=== PATIENT | female | born 1985 | race Caucasian/White ===

== ENCOUNTER 2022-11-02 20:06 | Emergency (ER) | payer BC, MEDICAID, SELFPAY ==
--- NOTE | ~2022-11-02 | CT_ITS ---
EXAMINATION: CT HEAD WITHOUT CONTRAST CLINICAL INFORMATION: Brain mass. Dysarthria. COMPARISON: No relevant prior imaging. TECHNIQUE: Contiguous axial imaging was performed from the skull base to vertex without intravenous administration of contrast. This CT examination was performed using dose optimization techniques as appropriate, variously including the following: *Automated exposure control *Adjustment of mA and/or kV according to patient size (this includes techniques or standardized protocols for targeted exams where dose is matched to indication/reason for exam; i.e. extremities or head) *Use of iterative reconstruction technique DLP: 687 mGy-cm FINDINGS: There are chronic postoperative changes of a partial right temporal lobectomy and there is asymmetric ex vacuo enlargement of the right temporal horn. No intracranial mass effect or midline shift. No hydrocephalus. Vences-white matter differentiation is grossly preserved and there is no evidence of acute territorial infarct. The skull base is intact. No mastoid or middle ear effusion. No active paranasal sinus disease. CT/CT head/brain wo IV con IMPRESSION: There are chronic postoperative changes of a partial right temporal lobectomy. Otherwise unremarkable examination. No evidence of acute territorial infarct or hemorrhage.
[2022-11-02 20:13] VITALS: BP 88/52; BP 98/60; PULSE 66; PULSE 67; RESP 18; TEMP 36.6; O2SAT 98; O2SAT 99; BMI 28.4
--- NOTE | 2022-11-02 21:10 | PC.NURSE ---
Assumed care of pt. On arrival, pt assessed by and this RN. pt found to have contracted R arm, pt sts due to pain in shoulder, wworse on palpation. Pt also found to have speech deficits with slurring and some abbreviated sentence structures. both of the latter appear to be intermittent during exam, with pt completing some sentences with clear speech, then having moderate mufled/slurred speech and short sentence structure with others. pt taken to CT for dry scan immediately after assessment, then brought to room. This RN made one attempt to start IV, pt jerked arm away and IV not successful. At that time, pt refused IV, labwork and any fuirther exams. MD made aware of pt request. pt speech notably improving, and pt moving R arm freely with no distress at that time. Per MD, pt spouse contacted to come to ER to discuss situation.
--- NOTE | 2022-11-02 21:13 | ED_ITS ---
HPI - Neuro Symptoms/Deficit General Chief Complaint: Neuro Symptoms/Deficit Stated Complaint: slurred speech, r side weakness, per ems Time Seen by Provider: 11/02/22 20:11 Source: patient Mode of arrival: ambulatory Limitations: no limitations History of Present Illness HPI Narrative: Patient's history of brain tumor status post surgery and radiation treatment in 2019 localized to the right frontal area with history of anxiety and frequent slurred speech in the past with workup negative today patient was under stress is increased work load was working outside came inside the home and had difficulty speaking stuttering her words without any aphasia no other weakness patient was ambulatory Related Data Allergies Allergy/AdvReac Type Severity Reaction Status Date / Time No Known Allergies Allergy Verified 11/02/22 20:11 [facility] Social History Social History Alcohol intake: current Alcohol intake frequency: holidays/special occasions only Smoked in Last 30 Days: Yes Use of substances other than those prescribed or required for medical reasons: Yes Advance Directives: No Advance Directives Information Provided: No Patient : No Physical Exam Vital Signs: Vital Signs: Last Vital Signs Temp 97.8 F 11/02/22 20:13 Pulse 67 11/02/22 20:13 Resp 18 11/02/22 20:13 BP 96/57 L 11/02/22 22:13 Pulse Ox 98 11/02/22 20:13 O2 Del Method Room Air 11/02/22 20:13 BMI result Body Mass Index 28.4 Medical Decision Making Lab Data Labs: Lab Results 11/02/22 Range/Units 21:14 POC Glucose 97 (60-115) mg/dL Discharge Plan Discharge Clinical Impression: Anxiety disorder Patient Disposition: Home, Self-Care Instructions: Anxiety (ED) Additional Instructions: We could not find any stroke at this time your symptoms likely from str ess/anxiety Follow-up with your PCP Drink plenty of fluids
--- NOTE | 2022-11-02 21:15 | PC.NURSE ---
pt provided PO water following passed swallow eval.
[2022-11-02 21:18] LABS: Glucose, Whole Blood 97 mg/dL (60-115)
[2022-11-02 22:13] VITALS: BP 96/57
--- NOTE | 2022-11-02 22:16 | PC.NURSE ---
After PO water, pt demonstrating improving blood pressures. made aware.
== END 2022-11-02 22:31 | disposition home or self-care (01) ==
PROVIDERS: Emergency Provider Internal Medicine; PCP Radiology Diagnostic Radiology
DX: F41.9 Anxiety disorder, unspecified (principal); C71.9 Malignant neoplasm of brain, unspecified; Z92.3 Personal history of irradiation
CPT/HCPCS: 70450; 82947; 99284

== ENCOUNTER 2022-11-30 09:49 | Emergency (ER) | payer BC, MEDICARE, MEDICAID, SELFPAY ==
[2022-11-30] VITALS (7 sets, daily range): BP systolic 85–109; BP diastolic 44–73; PULSE 61–72; RESP 17–21; TEMP 36.1; O2SAT 98–100; BMI 30.5
--- NOTE | ~2022-11-30 | XR_ITS ---
EXAMINATION: XR CHEST CLINICAL INFORMATION: Chest pain. COMPARISON: None available. TECHNIQUE: Frontal view of the chest was obtained. FINDINGS: No significant abnormality is noted involving the heart, lungs, mediastinum, bony thorax or soft tissues. XR/XR chest 1V IMPRESSION: No acute cardiopulmonary process.
--- NOTE | 2022-11-30 10:32 | ECG_ITS ---
Test Reason : CP Blood Pressure : / mmHG Vent. Rate : 067 BPM Atrial Rate : 067 BPM P-R Int : 200 ms QRS Dur : 078 ms QT Int : 448 ms P-R-T Axes : 072 087 080 degrees QTc Int : 473 ms Normal sinus rhythm Nonspecific T wave abnormality Abnormal ECG No previous ECGs available Referred By: Janiya Farrell Electronically Signed By:DEBBI APONTE
--- NOTE | 2022-11-30 10:38 | ED.CHESTPAIN ---
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 EMS found her with BP low 70s/80s but recovered quickly with fluids. She denies symptoms now and speech is normal. She has not been drinking much but denies travel, OCP use, prior hx of CAD, dissection, VTE. no fam hx of early CAD. she had repair of PDA as infant. MD complaint: chest pain Pertinent past history: other (syncope) Onset (ago): minute(s) (just ACCESS LIAISON) Timing of current episode: now resolved Prior episodes: Yes Onset: during rest Pain location: left chest Pain radiation: left arm Severity: moderate Quality: sharp Relieving factors: nothing Exacerbating factors: stress Context: other (hx of similar in the past. ) Associated symptoms: other (dizziness, felt she had some slurred speech (hx of same in the past)) Treatment prior to arrival: none Related Data Allergies Allergy/AdvReac Type Severity Reaction Status Date / Time No Known Allergies Allergy Verified 11/02/22 20:11 Review of Systems Review of Systems: Constitutional : No Weight loss, No Fever, No Chills ENT/Mouth : No sore throat, No Rhinorrhea Eyes: No Eye Pain, No Swelling Cardiovascular : pos Chest Pain, no SOB, no Dyspnea on Exertion, No Orthopnea, No Edema, No Palpitations Respiratory : No Cough, No Sputum Gastrointestinal : pos Nausea, No Vomiting, No Diarrhea, No abdominal Pain, No Hematochezia, No Melena Genitourinary : No Dysuria, No Urinary Frequency Musculoskeletal : No joint pain, No Myalgias, No Joint Swelling Skin : No Skin Lesions, No rash Neuro : No Weakness, No Numbness, No Dizziness, No Headache Psych : No Anxiety/Panic, No Depression Heme/Lymph: No Bruising, No Lymphadenopathy Endocrine : No Polyuria, No Polydipsia All other systems reviewed and are negative [facility] Past Medical History Attestation statement: The following information was validated with the patient. Source: old records reviewed and obtained from family Medical History Anxiety Astrocytoma Syncope Social History Social History (Updated 11/30/22 @ 10:47 by Janiya Farrell DO) Alcohol intake: current Alcohol intake frequency: holidays/special occasions only Patient Tobacco Use Status: Current someday Tobacco user Advance Directives: No Advance Directives Information Provided: No Physical Exam Vital Signs: Vital Signs: Last Vital Signs Temp 97 F 11/30/22 09:58 Pulse 61 11/30/22 14:18 Resp 21 H 11/30/22 14:18 BP 93/63 11/30/22 14:18 Pulse Ox 100 11/30/22 14:18 O2 Del Method Room Air 11/30/22 14:18 BMI result Body Mass Index 30.5 Appearance: Alert. Oriented X3. No acute distress. Eyes: Pupils equal, round and reactive to light. ENT: Pharynx normal. Neck: Normal inspection. Neck supple. CVS: Normal heart rate and rhythm. Pulses normal. Respiratory: No respiratory distress. Breath sounds normal. Abdomen: Soft and nontender. Skin: Skin warm and dry. Normal skin color. Normal skin turgor. Extremities: No lower extremity edema. No calf ttp 2+ radial pulses bilaterally Neuro: Oriented X 3. No motor deficit. No sensory deficit. Course Course Course Narrative: BP didn't really drop with orthostatics and she is feeling better - baseline BP is low in 90s to begin with per patient trop flat x 2 and ddimer negative asymptomatic at this time stable for DC Medications Administered Discontinued Medications Generic Name Dose Route Start Last Admin Trade Name Freq PRN Reason Stop Dose Admin Sodium Chloride 500 mls @ 500 mls/hr 11/30/22 10:45 11/30/22 10:49 Ns IV 11/30/22 11:44 500 mls/hr .Q1H OMID Administration Lactated Ringer's 1,000 mls @ 999 mls/hr 11/30/22 13:30 11/30/22 13:48 Lr IV 11/30/22 14:30 999 mls/hr .Q1H1M OMID Administration Medical Decision Making Medical Decision Making MDM Narrative: 37 yo female with 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 BP has resolved and no infectious symptoms reported doubt infection at this time - likely vasovagal or near syncope has hx of low BP in the past. Labs, troponin x 2, ddimer , EKG and CXR with 500cc bolus ordered. Differential Diagnosis Differential Diagnoses: The differential diagnosis associated with the presentation includes chest pain atypical, FTT, near syncope, anemia, dehydration, vasovagal, VTE, doubt dissection - no hx of this in the past and no fam hx distal pulses symmetric and intact Admission/Observation Consideration of admission/observation: Escalation of care including admission/observation considered VS improved - negative orthostatics, ddimer negative, trop flat x 2, feels fine stable for DC Lab Data [facility] Lab Attestation statement: I reviewed the patient's lab results. 11/30/22 11:54 11/30/22 11:54 Labs: Lab Results 11/30/22 11/30/22 11/30/22 Range/Units 11:54 11:54 11:54 WBC 3.8 L (4.8-10.8) X10*3/uL RBC 4.48 (4.20-5.50) X10*6/uL Hgb 12.0 (12.0-16.0) g/dl Hct 34.7 L (37.0-47.0) % MCV 77.5 L (80.0-98.0) fL MCH 26.8 L (27.0-33.0) pg MCHC 34.6 (31.0-35.0) g/dl RDW 13.6 (11.0-16.0) % Plt Count 167 (160-400) X10*3/uL MPV 10.1 (9.4-12.3) fL Immature Gran % (Auto) 0.3 (0.0-0.4) % Neut % (Auto) 42.8 L (45-73) % Lymph % (Auto) 42.8 H (20-40) % Gulf % (Auto) 6.1 (2-11) % Eos % (Auto) 6.4 H (0-4) % Baso % (Auto) 1.6 (0-2) % Lymph # (Auto) 1.6 (1.2-4.9) X10*3/uL [place] # (Auto) 0.2 (0.1-1.2) X10*3/uL Eos # (Auto) 0.2 (0.0-0.4) X10*3/uL Baso # (Auto) 0.1 (0.0-0.2) X10*3/uL Abs Immat Gran (auto) 0.01 (0.00-0.03) X10*3/uL Absolute Neuts (auto) 1.6 L (2.0-8.3) x10*3/uL Absolute Nucleated RBC 0.000 (0.0-0.012) X10*3/uL Nucleated RBC % (auto) 0.0 (0.0-0.2) /100WBC D-Dimer High Sensitivty < 150 NG/ML Sodium 137 (135-145) mmol/L Potassium 4.5 (3.3-5.1) mmol/L Chloride 106 (96-108) mmol/L Carbon Dioxide 26 (22-29) mmol/L Anion Gap 10 L (12-20) BUN 10 (9-16) mg/dL Creatinine 0.76 (0.5-1.4) mg/dL Estim Creat Clear Calc 98.3 Estimated GFR > 60 Random Glucose 85 (60-115) mg/dL Calcium 9.4 (8.4-10.2) mg/dL Magnesium 1.9 (1.6-2.6) mg/dL Total Bilirubin 0.4 (0.0-1.0) mg/dL Direct Bilirubin 0.1 (0.0-0.5) mg/dL AST 19 (5-31) U/L ALT 9 (0-31) U/L Alkaline Phosphatase 76 (39-117) U/L Troponin I High Sens (<3.5-17.0) ng/L Total Protein 6.4 L (6.5-8.0) g/dL Albumin 3.7 (3.5-5.0) g/dL COVID-19 (MATT) (Negative) COVID-19 Clin Com 11/30/22 11/30/22 11/30/22 Range/Units 11:54 11:54 14:17 WBC (4.8-10.8) X10*3/uL RBC (4.20-5.50) X10*6/uL Hgb (12.0-16.0) g/dl Hct (37.0-47.0) % MCV (80.0-98.0) fL MCH (27.0-33.0) pg MCHC (31.0-35.0) g/dl RDW (11.0-16.0) % Plt Count (160-400) X10*3/uL MPV (9.4-12.3) fL Immature Gran % (Auto) (0.0-0.4) % Neut % (Auto) (45-73) % Lymph % (Auto) (20-40) % Gulf % (Auto) (2-11) % Eos % (Auto) (0-4) % Baso % (Auto) (0-2) % Lymph # (Auto) (1.2-4.9) X10*3/uL Gulf # (Auto) (0.1-1.2) X10*3/uL Eos # (Auto) (0.0-0.4) X10*3/uL Baso # (Auto) (0.0-0.2) X10*3/uL Abs Immat Gran (auto) (0.00-0.03) X10*3/uL Absolute Neuts (auto) (2.0-8.3) x10*3/uL Absolute Nucleated RBC (0.0-0.012) X10*3/uL Nucleated RBC % (auto) (0.0-0.2) /100WBC D-Dimer High Sensitivty NG/ML Sodium (135-145) mmol/L Potassium (3.3-5.1) mmol/L Chloride (96-108) mmol/L Carbon Dioxide (22-29) mmol/L Anion Gap (12-20) BUN (9-16) mg/dL Creatinine (0.5-1.4) mg/dL Estim Creat Clear Calc Estimated GFR Random Glucose (60-115) mg/dL Calcium (8.4-10.2) mg/dL Magnesium (1.6-2.6) mg/dL Total Bilirubin (0.0-1.0) mg/dL Direct Bilirubin (0.0-0.5) mg/dL AST (5-31) U/L ALT (0-31) U/L Alkaline Phosphatase (39-117) U/L Troponin I High Sens 5.1 < 2.7 (<3.5-17.0) ng/L Total Protein (6.5-8.0) g/dL Albumin (3.5-5.0) g/dL COVID-19 (MATT) Negative (Negative) COVID-19 Clin Com See Note Independent Interpretation I performed an independent interpretation of an: EKG and Plain X-Ray Interpretation: Rate:67 Rhythm: NSR [place]: normal Normal P waves. Normal CARLOS A. Normal QRS complex. ST T wave : inverted t waves V1-V2, no FERNANDO, artifact noted qTC: normal prior studies: no priors. The study has been interpreted contemporaneously by me. . Radiology Impression Discussion of test interpretation with radiology: I have reviewed the radiologist's reading. Independent Historian Clinical information obtained from an independent historian. History obtained from or confirmed by: Parent External Record Review External record reviewed: Inpatient record Discharge Plan Discharge Clinical Impression: Atypical chest pain Patient Disposition: Home, Self-Care Instructions: Chest Pain (ED) Additional Instructions: blood clot test negative at this time, heart test negative x 2, EKG and chest xray no acute ischemia. your blood pressure did not drop significantly while standing. you were given 2 bags of IVF fluids. return for worsening pain, shortness of breath, headaches, dizziness or any other concerns. take it easy today, rest and stay hydrated drink half a bottle of gatorade mixed with water talk to your doctor this week about your visit.
[2022-11-30] MEDS: 0.9 % Sodium Chloride 500 ML IV (10:49)
[2022-11-30 11:59] LABS: MANUAL DIFF FLAG NO
[2022-11-30 12:02] LABS: Basophils Absolute Auto 0.1 X10*3/uL (0.0-0.2); Basophils Percent Auto 1.6 % (0-2); Eosinophils Absolute Auto 0.2 X10*3/uL (0.0-0.4); Eosinophils Percent Auto 6.4 % (0-4); Hematocrit 34.7 % (37.0-47.0); Imm Gran Abs Auto 0.01 X10*3/uL (0.00-0.03); Imm Gran Pct Auto 0.3 % (0.0-0.4); Lymphocytes Absolute Auto 1.6 X10*3/uL (1.2-4.9); Lymphocytes Percent Auto 42.8 % (20-40); Mean Corpuscular HGB Conc 34.6 g/dl (31.0-35.0); Mean Corpuscular Hemoglobin 26.8 pg (27.0-33.0); Mean Corpuscular Volume 77.5 fL (80.0-98.0); Mean Platelet Volume 10.1 fL (9.4-12.3); Monocytes Absolute Auto 0.2 X10*3/uL (0.1-1.2); Monocytes Percent Auto 6.1 % (2-11); Neutrophils Absolute Auto 1.6 x10*3/uL (2.0-8.3); Neutrophils Percent Auto 42.8 % (45-73); Platelet Count 167 X10*3/uL (160-400); Red Blood Count 4.48 X10*6/uL (4.20-5.50); Red Cell Distribution Width 13.6 % (11.0-16.0); White Blood Count 3.8 X10*3/uL (4.8-10.8)
[2022-11-30 12:10] LABS: D Dimer High Sensitivity < 150 NG/ML
[2022-11-30 12:14] LABS: COVID-19 Test Negative (Negative); IDNOW Serial# 08D9AD1C
[2022-11-30 12:16] LABS: Alanine Aminotransferase 9 U/L (0-31); Albumin Level 3.7 g/dL (3.5-5.0); Alkaline Phosphatase 76 U/L (39-117); Anion Gap 10 (12-20); Aspartate Amino Transferase 19 U/L (5-31); Bilirubin Direct 0.1 mg/dL (0.0-0.5); Bilirubin Total 0.4 mg/dL (0.0-1.0); Blood Urea Nitrogen 10 mg/dL (9-16); Calcium 9.4 mg/dL (8.4-10.2); Carbon Dioxide 26 mmol/L (22-29); Chloride 106 mmol/L (96-108); Creatinine Clr Calc Pharmacy 98.3; Estimated Glomerular Filt Rate > 60; Glucose Random 85 mg/dL (60-115); Magnesium 1.9 mg/dL (1.6-2.6); Potassium 4.5 mmol/L (3.3-5.1); Sodium 137 mmol/L (135-145); Total Protein 6.4 g/dL (6.5-8.0)
[2022-11-30 12:22] LABS: Troponin-I High Sensitivity 5.1 ng/L (<3.5-17.0)
[2022-11-30] MEDS: Lactated Ringers 1,000 ML 999 ML IV (13:48)
[2022-11-30 14:51] LABS: Troponin-I High Sensitivity < 2.7 ng/L (<3.5-17.0)
== END 2022-11-30 15:07 | disposition home or self-care (01) ==
PROVIDERS: Emergency Provider Emergency Medicine
DX: R07.89 Other chest pain (principal); M79.602 Pain in left arm; F41.9 Anxiety disorder, unspecified; R42 Dizziness and giddiness; R47.81 Slurred speech; F17.200 Nicotine dependence, unspecified, uncomplicated; Z71.6 Tobacco abuse counseling; Z20.822 Contact with and (suspected) exposure to COVID-19; Z20.828 Contact with and (suspected) exposure to other viral communicable diseases; Z79.899 Other long term (current) drug therapy
CPT/HCPCS: 36415; 71045; 80048; 80076; 83735; 84484; 85025; 85379; 87635; 93005; 99284

== ENCOUNTER 2022-12-26 18:14 | Emergency (ER) | payer BC, MEDICARE, MEDICAID, SELFPAY ==
--- NOTE | ~2022-12-26 | US_ITS ---
EXAMINATION: US DIAGNOSTIC ULTRASOUND BREAST, LEFT CLINICAL INFORMATION: Left breast periareolar nipple erythema, induration and pain, rule out abscess. COMPARISON: None available. TECHNIQUE: Ultrasound of the left breast is performed with real-time del rosario scale imaging and color Doppler. Attention was paid to the area of induration and pain. FINDINGS: There is generalized skin thickening and hyperemia in the nipple and periareolar region extending into the retroareolar tissues. There is a small 7 x 8 x 9 mm fluid collection immediately posterior to the nipple, approximately 3 mm deep to the skin, with surrounding hyperemia, highly suspicious for a small abscess. This appears likely too small to percutaneously drain at this point. US/US breast LT limited IMPRESSION: 1. Left nipple and periareolar cellulitis. 2. Small 7 x 8 x 9 mm abscess immediately posterior to the nipple, likely too small to drain percutaneously at this time to provide benefit to the patient. Recommend clinical management, and follow-up up scan as necessary. ASSESSMENT: BI-RADS 2: Benign RECOMMENDATION: 1. Patient should be managed clinically. Concordant preliminary report was communicated to the Emergency Department, Dr. Murrell, at 9:40 PM, 12/26/2022, by Dr. Priest.
[2022-12-26 19:45] VITALS: BP 100/65; PULSE 86; RESP 18; TEMP 36.7; O2SAT 99; BMI 33.1
--- NOTE | 2022-12-26 19:48 | ED_ITS ---
HPI - Skin/Abscess/Foreign Bdy General Stated complaint: left breast pain Related Data Allergies Allergy/AdvReac Type Severity Reaction Status Date / Time No Known Allergies Allergy Verified 11/02/22 20:11 [facility] Past Medical History Medical History Anxiety Astrocytoma Syncope Social History Social History (Updated 11/30/22 @ 10:47 by Janiya Farrell DO) Alcohol intake: current Alcohol intake frequency: holidays/special occasions only Patient Tobacco Use Status: Current someday Tobacco user Course Course Course Narrative: RME - 37 yo female presenting for evaluation of severe left breast pain and redness that started yesterday and got acutely worse today. She feels under her breast is hard and there is a pustule near the aerola. No drainage. Redness has been spreading Plan: U/S to assess for abscess
--- OUTSIDE RECORDS SUMMARY | 2022-12-26 22:16 | XMS_ITS | Continuity of Care Document ---
Author Name Unknown Organization [facility] Address [address] [place] [id number]- Care Team Providers Care Car Customizer Name Role Phone Justice CASTILLO, Mona Primary Care Physician Encounter [facility] [place] Date(s): 03/25/20 - 04/24/20 [facility] [address] [place] [phone]- Attending Physician: Admtr, [id number] Admitting Physician: Admtr, [id number] Referring Physician: Admtr, [id number] Allergies, Adverse Reactions, Alerts Substance Reaction Severity Status Eucalyptamint Active Animal Dander Active Pollen Active Other Environmental Allergy 1 Active Other Food Allergy PINEAPPLE/ SWELLING Ac tive 1euccalyptus Immunizations Given and Recorded Vaccine Date Status Refusal Reason tetanus/diphtheria/pertussis, acel(Tdap) 05/19/16 Given tetanus/diphtheria/pertussis, acel(Tdap) 03/22/15 Given Rabies Immune Globulin, Human 1 03/22/15 Given rabies vaccine, human diploid cell 03/22/15 Given Not Given Vaccine Date Status Refusal Reason pneumococcal 23-valent vaccine 01/26/17 Not Given Patient Refuses influenza virus vaccine, inactivated 01/26/17 Not Given Patient Refuses 1Result Comment: 3 mL surrounding site, 3 mL bilateral vastus lateralus, 2.8 mL in dorsal gluteal left. Second lot [id number] exp 11/26/2015 Medications acetaminophen 325 mg oral tablet 650 mg, 2, tablet, By Mouth, 4 times a day, PRN, Refills 0, Maintenance, Pain , Moderate, 01/14/19 13:38:09 EDT Start Date: 01/14/19 Status: Ordered Albuterol 90 mcg Inhaler 2, puffs, Inhalation, Every 4 hours, PRN, Maintenance, 01/10/13 11:18:40 Start Date: 01/10/13 Status: Ordered dexamethasone 2 mg oral tablet See Instructions, 1 tablet By Mouth 2 times a day days 1-5 of chemotherapy, then t tablet in AM x 2days, then stop, # 50 tablet, 0 Refills, Maintenance, 11/27/19 16:33:00 EDT, Tablet, [facility], 162, cm, 11/26/19 16:17:00 EDT, Height, 73.7,... Start Date: 11/27/19 Status: Ordered LORazepam 0.5 mg oral tablet 1 tablet = 0.5 mg, By Mouth, 3 times a day, PRN for anxiety, # 60 tablet, 0 Refills, Maintenance, 01/21/20 8:48:00 EDT, Tablet, [facility], 163, cm, 12/06/19 12:26:00 EDT, Height, 73, kg, 12/06/19 12:26:00 EDT, Dry Weight Start Date: 01/21/20 Status: Ordered LORazepam 0.5 mg oral tablet See Instructions, 1 tablet By Mouth at bedtime for four days before chemotherapy, # 24 tablet, 0 Refills, Maintenance, 09/23/19 15:36:00 EDT, 159, cm, 09/23/19 15:22:00 EDT, Height, 69.1, kg, 09/23/19 15:22:00 EDT, Dry Weight Start Date: 09/23/19 Status: Ordered ondansetron 8 mg oral tablet 1 tablet = 8 mg, By Mouth, Daily, 30 minutes before chemotherapy, # 42 tablet, 1 Refills, Maintenance, 01/21/20 10:20:00 EDT, [facility], 163, cm, 12/06/19 12:26:00 EDT, Height, 73, kg, 12/06/19 12:26:00 EDT, Dry Weight Start Date: 01/21/20 Stop Date: 04/14/20 Status: Ordered prochlorperazine 5 mg oral tablet 1 tablet = 5 mg, By Mouth, Every 6 hours, PRN Nausea & Vomiting, may cause drowsiness, # 30 tablet, 0 Refills, Maintenance, 08/26/19 9:18:00 EDT, [facility], 159.4, cm, 06/27/19 14:32:00 EDT, Height, 70.4, kg, 06/10/19 11:09:00 EST, Dry Weight Start Date: 08/26/19 Status: Ordered Ritalin 5 mg oral tablet 5 mg, 1, tablet, By Mouth, 2 times a day, per pt, Refills 0, Tot. Refills 0, Maintenance, 04/22/19 11:47:00 EST Start Date: 04/22/19 Status: Ordered temozolomide 140 mg oral capsule 1 capsule = 140 mg, By Mouth, Daily at bedtime, daily dose 340 mg, # 5 capsule, 5 Refills, Maintenance, 11/27/19 16:39:00 EDT, Dry Weight Start Date: 11/27/19 Status: Ordered temozolomide 180 mg oral capsule 2 capsule = 360 mg, By Mouth, Daily at bedtime, # 10 capsule, 5 Refills, Maintenance, 02/26/20 13:26:00 EST, [facility], 161, cm, 02/19/20 11:43:00 EST, Height, 79.4, kg, 02/19/20 11:43:00 EST, Dry Weight Start Date: 02/26/20 Stop Date: 03/27/20 Status: Ordered Zofran 8 mg oral tablet 1 tablet = 8 mg, By Mouth, Every 8 hours, PRN Nausea, take 30 min before chemotherapy, then every 8hours if needed, # 10 each, 0 Refills, Maintenance, 01/17/20 15:15:00 EDT, [facility]/pharmacy #[id number], 163,cm, 12/06/19 12:26:00 EDT, Height, 73, kg, 12/06/19... 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 Due for removal in 09/2015 Social History Social History Type Response Smoking Status Current every day juliano stokes entered on: 09/02/16 Sex
--- OUTSIDE RECORDS SUMMARY | 2022-12-26 22:16 | XMS_ITS | Continuity of Care Document ---
Author Name Unknown Organization [facility] Address [address] [place] [id number]- Care Team Providers Care Cyber Security Systems Engineer Name Role Phone Justice CASTILLO, Mona Primary Care Physician Encounter [facility] [place] Date(s): 03/05/20 - 04/04/20 [facility] [address] [place] [id number] [place] Allergies, Adverse Reactions, Alerts Substance Reaction Severity Status Eucalyptamint Active Animal Dander Active Pollen Active Other Food Allergy PINEAPPLE/ SWELLING Ac tive Other Environmental Allergy 1 Active 1euccalyptus Immunizations Given and Recorded Vaccine Date [...] mL in dorsal gluteal left. Second lot [id number] exp 11/26/2015 Medications acetaminophen 325 mg oral [...] 0 Refills, Maintenance, 11/27/19 16:33:00 EDT, Tablet, [facility], 162, cm, 11/26/19 16:17:00 EDT, Height, 73.7,... Start Date: 11/27/19 Status: Ordered LORazepam 0.5 mg oral tablet 1 tablet = 0.5 mg, By Mouth, 3 times a day, PRN for anxiety, # 60 tablet, 0 Refills, Maintenance, 01/21/20 8:48:00 EDT, Tablet, [facility], 163, cm, 12/06/19 12:26:00 EDT, Height, [...] tablet, 1 Refills, Maintenance, 01/21/20 10:20:00 EDT, [facility], 163, cm, 12/06/19 12:26:00 EDT, Height, 73, kg, 12/06/19 12:26:00 EDT, Dry Weight Start Date: 01/21/20 Stop Date: 04/14/20 Status: Ordered prochlorperazine 5 mg oral tablet 1 tablet = 5 mg, By Mouth, Every 6 hours, PRN Nausea & Vomiting, may cause drowsiness, # 30 tablet, 0 Refills, Maintenance, 08/26/19 9:18:00 EDT, [facility], 159.4, cm, 06/27/19 14:32:00 EDT, Height, [...] Refills, Maintenance, 02/26/20 13:26:00 EST, [facility], 161, cm, 02/19/20 11:43:00 EST, Height, 79.4, kg, 02/19/20 11:43:00 EST, Dry Weight Start Date: 02/26/20 Stop Date: 03/27/20 Status: Ordered Zofran 8 mg oral tablet 1 tablet = 8 mg, By Mouth, Every 8 hours, PRN Nausea, take 30 min before chemotherapy, then every 8hours if needed, # 10 each, 0 Refills, Maintenance, 01/17/20 15:15:00 EDT, [facility]/pharmacy #[id number], 163,cm, 12/06/19 12:26:00 EDT, Height, [...]
--- OUTSIDE RECORDS SUMMARY | 2022-12-26 22:16 | XMS_ITS | Continuity of Care Document ---
Author Name Unknown Organization [facility] Address [address] [facility], [address] d Floor, [address] [place] [address]- Care Team Providers Care Airplane Cabin Attendant Name Role Phone Justice CASTILLO, Mona Primary Care Physician En[place] [facility] [place] Date(s): 10/15/19 - 11/14/19 [facility] [address], 3[address] Floor, [address] [place] [address]- [facility] Allergies, Adverse Reactions, Alerts Substance Reaction Severity [...] Not Given Vaccine Date Status Refusal Reason influenza virus vaccine, inactivated 01/26/17 Not Given Patient Refuses pneumococcal 23-valent vaccine 01/26/17 Not Given Patient Refuses 1Result Comment: 3 mL surrounding site, 3 mL bilateral vastus lateralus, 2.8 mL in dorsal gluteal left. Second lot [id number] exp 11/26/2015 Medications acetaminophen 325 mg oral [...] stop, # 50 tablet, 0 Refills, Maintenance, 08/21/19 12:48:00 EDT, Tablet, [facility], 159.4, cm, 06/27/19 14:32:00 EDT, Height, 70.4... Start Date: 08/21/19 Status: Ordered LORazepam 0.5 mg oral tablet [...] chemotherapy, # 42 tablet, 1 Refills, Maintenance, 05/10/19 14:35:00 EST, [facility], 159.4, cm, 05/09/19 11:12:00 EST, Height, 71.1, kg, 05/09/19 11:12:00 EST, Dry Weight Start Date: 05/10/19 Stop Date: 08/02/19 Status: Ordered prochlorperazine 5 mg oral tablet 1 tablet = 5 mg, By Mouth, Every 6 hours, PRN Nausea & Vomiting, may cause drowsiness, # 30 tablet, 0 Refills, Maintenance, 08/26/19 9:18:00 EDT, [facility], 159.4, cm, 06/27/19 14:32:00 EDT, Height, [...] daily dose 340 mg, # 5 capsule, 4 Refills, Maintenance, 07/26/19 15:55:00 EDT, [facility], 159.4, cm, 06/27/19 14:32:00 EDT, Height, 70.4, kg, 06/10/19 11:09:00 EST, Dry Weight Start Date: 07/26/19 Status: Ordered Zofran 8 mg oral tablet 1 tablet = 8 mg, By Mouth, 3 times a day, take 30 min before chemotherapy, then every 8 hours if needed, # 15 tablet, 5 Refills, Maintenance, 06/17/19 16:34:00 EST, deliver [place] [facility] [place] on 06/26 for 06/27 visit Start Date: 06/17/19 Stop Date: 07/17/19 Status: Ordered Problem List Condition Effective Dates [...]
--- OUTSIDE RECORDS SUMMARY | 2022-12-26 22:16 | XMS_ITS | Continuity of Care Document ---
Author Name Unknown Organization [facility] Address Unknown Care Team Providers Care Hearing Examiner Name Role Phone Justice CASTILLO, Mona Primary Care Physician [place] [facility] [place] [id number] Date(s): 10/14/20 - 12/25/20 [facility] Attending Physician: Tejal Amador Admitting Physician: Tejal Amador Allergies, Adverse Reactions, Alerts Substance Reaction Severity Status Animal Dander Active Pollen Active Other Environmental Allergy 1 Active Pineapple Active 1euccalyptus Immunizations Given and Recorded Vaccine [...] mL in dorsal gluteal left. Second lot [id number] exp 11/26/2015 Medications Albuterol 90 mcg Inhaler 2, puffs, Inhalation, Every 4 hours, PRN, Maintenance, 01/10/13 11:18:40 Start Date: 01/10/13 Status: Ordered dexamethasone 2 mg oral tablet See Instructions, 1 tablet By Mouth 2 times a day days 1-5 of chemotherapy, then t tablet in AM x 2days, then stop, # 50 tablet, 0 Refills, Maintenance, 06/01/20 13:08:00 EST, Tablet, [facility], 160, cm, 05/13/20 15:07:00 EST, Height, 87.1,... Start Date: 06/01/20 Status: Ordered Flonase 50 mcg/inh nasal spray 2 sprays, Nares, Both, Daily in AM, # 15.8 mL, 0 Refills, Maintenance, 10/19/20 14:57:00 EDT, [place], [facility]/pharmacy #[id number], Partial fill upon patient request if the prescription is for a schedule II opioid drug., 2 sprays Nares, Both Daily in AM, 160, cm... Start Date: 10/19/20 Status: Ordered LORazepam 0.5 mg oral tablet 1 tablet = 0.5 mg, By Mouth, 3 times a day, PRN for anxiety, [facility] reviewed 11/12/2020, # 60 tablet, 0 Refills, Maintenance, 11/12/20 8:58:00 EDT, Tablet, [facility]/pharmacy #[id number], 160, cm, 10/19/20 15:19:00 EDT, Height, 99.8, kg, 10/19/20 15:19:00 EDT, D... Start Date: 11/12/20 Status: Ordered ondansetron 8 mg oral tablet See Instructions, take 30minutes before chemotherapy then as needed every 8 hrs for Daily 5 days while on Temodar, # 15 tablet, 5 Refills, Maintenance, 12/22/20 8:53:00 EDT, [facility], 161, cm, 12/02/20 17:19:00 EDT, Height, 101, kg, 12/02/20... Start Date: 12/22/20 Status: Ordered prochlorperazine 5 mg oral tablet 1 tablet = 5 mg, By Mouth, Every 6 hours, PRN Nausea & Vomiting, may cause drowsiness, # 30 tablet, 0 Refills, Maintenance, 08/26/19 9:18:00 EDT, [facility], 159.4, cm, 06/27/19 14:32:00 EDT, Height, 70.4, kg, 06/10/19 11:09:00 EST, Dry Weight Start Date: 08/26/19 Status: Ordered Ritalin 5 mg oral tablet 5 mg, 1, tablet, By Mouth, 2 times a day, per pt, Refills 0, Tot. Refills 0, Maintenance, 04/22/19 11:47:00 EST Start Date: 04/22/19 Status: Ordered temozolomide 100mg. 4 caps daily temozolomide 100mg. 4 caps daily, Refills 0, Maintenance, 10/14/20 14:59:00 EDT, Supply Start Date: 10/14/20 Status: Ordered Zofran 8 mg oral tablet 1 tablet = 8 mg, By Mouth, Every 8 hours, PRN Nausea, take 30 min before chemotherapy, then every 8hours if needed, # 10 each, 0 Refills, Maintenance, 01/17/20 15:15:00 EDT, [id number], 163,cm, 12/06/19 12:26:00 EDT, Height, 73, kg, 12/06/19... Start Date: 01/17/20 Stop Date: 01/20/20 Status: Ordered zonisamide 25 mg oral capsule See Instructions, 1 capsule By Mouth 2 times a day for 1 week, then 2 bid for 1 week then 3 bid, # 120 capsule, 2 Refills, Maintenance, 10/14/20 15:29:00 EDT, Capsule, [id number], Partial fill upon patient request if the prescription is for a... Start Date: 10/14/20 Status: Ordered Problem List Condition Effective Dates [...]
--- OUTSIDE RECORDS SUMMARY | 2022-12-26 22:16 | XMS_ITS | Continuity of Care Document ---
Author Name Unknown Organization [facility] Address [address] [place] [address]- Care Team Providers Care Children'S Minister Name Role Phone Justice CASTILLO, Mona Primary Care Physician Encounter [facility] [place] Date(s): 10/19/22 - 12/20/[address] [address]- Encounter Diagnosis Malignant neoplasm of brain, unspecified(Final) - Discharge Disposition: A-D/C Home Attending Physician: Simone ROMERO, Pierce Lara Admitting Physician: Pierce Nichols MD Referring Physician: Not on Staff, Referring MD Allergies, Adverse Reactions, Alerts Substance Reaction Severity Status Pineapple Active Keppra Active Animal Dander Active Pollen Active Other Environmental Allergy 1 Active 1euccalyptus Immunizations Given and Recorded Vaccine Date Status Refusal Reason SARS-CoV-2 (COVID-19) mRNA-1273 vaccine 04/08/21 R ecorded SARS-CoV-2 (COVID-19) mRNA-1273 vaccine 06/03/20 R ecorded SARS-CoV-2 (COVID-19) mRNA-1273 vaccine 05/06/20 R ecorded tetanus/diphtheria/pertussis, acel(Tdap) 05/19/16 Given tetanus/diphtheria/pertussis, acel(Tdap) 03/22/15 Given Rabies Immune Globulin, Human 1 03/22/15 Given rabies vaccine, human diploid cell 03/22/15 Given 1Result Comment: 3 mL surrounding site, 3 mL bilateral vastus lateralus, 2.8 mL in dorsal gluteal left. Second lot [id number] exp 11/26/2015 Medications Albuterol 90 mcg Inhaler 2, puffs, Inhalation, Every 4 hours, PRN, Maintenance, 01/10/13 11:18:40 EDT Start Date: 01/10/13 Status: Ordered Ativan 0.5 mg oral tablet 0.5 tablet = 0.25 mg, By Mouth, 3 times a day, 0 Refills, Maintenance, 06/08/21 16:06:00 EST, Tablet, Partial fill upon patient request if the prescription is for a schedule II opioid drug. Start Date: 06/08/21 Status: Ordered dexamethasone 2 mg oral tablet See Instructions, 1 tablet By Mouth 2 times a day days 1-5 of chemotherapy, then t tablet in AM x 2days, then stop, # 10 tablet, 1 Refills, Maintenance, 06/01/21 9:02:00 EST, Tablet, [facility], 152.4, cm, 05/21/21 18:46:00 EST, Height, 102.9... Start Date: 06/01/21 Status: Ordered methylphenidate 5 mg oral tablet 10 mg, 2, tablet, By Mouth, Daily in AM, # 60 tablet, Refills 0, Tot. Refills 0, Maintenance, 05/22/21 9:10:00 EST, [facility], Partial fill upon patient request if the prescription is for a schedule II opioid drug. Start Date: 05/22/21 Status: Ordered ondansetron 8 mg oral tablet 1 tablet = 8 mg, By Mouth, Every 8 hours, PRN Severe Nausea & Vomiting, # 15 tablet, 1 Refills,Maintenance, 06/01/21 9:04:00 EST, Tablet, [facility], Partial fill upon patient request ifthe prescription is for a schedule II opioid drug., 152... Start Date: 06/01/21 Status: Ordered zonisamide 25 mg oral capsule 1 capsule = 25 mg, By Mouth, 2 times a day, 0 Refills, Maintenance, 05/21/21 11:13:00 EST, Capsule,Partial fill upon patient request if the prescription is for a schedule II opioid drug. 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 Due for removal in 09/2015 Vital Signs Most recent to oldest [Reference Range]: 1 Height 161 cm (10/20/22 11:43 AM) Weight 78.7 kg (10/20/22 11:43 AM) Oxygen Saturation [94-100 %] 97 % (10/20/22 11:43 AM) Pulse Rate [55-90 bpm] 83 bpm (10/20/22 11:43 AM) Body Mass Index [18.5-24.99 kg/m2] 30.36 kg/m2 *>HHI* (10/20/22 11:43 AM) Blood Pressure [90-138/55-84 mm Hg] 94/6 5mm Hg (10/20/22 11:43 AM) Respiratory Rate [16-30 br/min] 18 br/mi n (10/20/22 11:43 AM) Liters per Minute 0 L/min (10/20/22 11:43 AM) Mode of Delivery (Oxygen) Room air (10/20/22 11:43 AM) Blood pressure sites Arm, right (10/20/22 11:43 AM) Dry Weight 78.7 kg (10/20/22 11:43 AM) Weight Obtained Via Standing scale (10/20/22 11:43 AM) Dry Weight Obtained Via Standing scale (10/20/22 11:43 AM) Social History Social History Type Response Tobacco Other: 3/4 ppd. Sex Note * Yojana Smith: PERFORM, SIGN, VERIFY Event Display: Patient Education/Instruction Authored Date: [id number] [facility] Clinical Summary Name GUDELIA SNYDER Age 36 Years 1985 PCP Justice WAITSTAFF CAPTAIN, Mona PCP Visit Date 10/19/2022 16:10:00 Additional Instructions: Scheduled Appointments?? Future Appointments ?No Future Appointments Scheduled Follow-Up Instructions ?? Diagnosis Medications: Please continue your medications until treatment is completed or stopped by your provider. Discuss any questions related to medications with your provider. Medications to Continue with No Changes These medications were not printed or sent to your pharmacy Albuterol (Albuterol 90 mcg Inhaler) 2 puff(s) Inhalation every 4 hours as needed Wheezing/Shortness of Breath. Next Dose: Dexamethasone (dexamethasone 2 mg oral tablet) 1 tablet By Mouth 2 times a day days 1-5 of chemotherapy, then t tablet in AM x 2 days, then stop. Refills: 1. Next Dose: Lorazepam (Ativan 0.5 mg oral tablet) 0.5 tab(s) Oral 3 times a day. Next Dose: Methylphenidate (methylphenidate 5 mg oral tablet) 2 tab(s) Oral Daily in the morning. Refills: 0. Next Dose: Ondansetron (ondansetron 8 mg oral tablet) 1 tab(s) Oral every 8 hours as needed Severe Nausea & Vomiting. Refills: 1. Next Dose: zonisamide (zonisamide 25 mg oral capsule) 1 capsule Oral twice a day. Next Dose: Allergy Info:?? Pineapple; Other Environmental Allergy; Pollen; Animal Dander; Keppra Medications Given This Visit Future Orders ?No future orders Vital Signs Height 161 cm Weight 78.7 kg BMI 30.36 kg/m2 Blood Pressure 94 mm Hg/65 mm Hg Temperature Pulse Rate 83 bpm Respiratory Rate 18 br/min 02 Sat Mode of Delivery 97 %/Room air You can now view a summary of your hospital visit from the comfort of your home through a free online portal called Vendly. Vendly is a website that allows you to securely view your medical information including discharge summary, medications and follow-up visits. ??You can alsosend a secure electronic message to your doctor???s office to request appointments, renew medications or just ask a question. You can enroll at [email or web address] or register during your next office visit. Disclaimer:?? The information provided is of a general nature and is intended to be used in conjunction with the recommendations and advice of your health care practitioner. ??Every effort has been made to ensure that the information provided is accurate and complete at the time it is provided to you however, as your needs change, or, as new ??information becomes available, different or additional instructions may be required. If you have questions, please consult with your primary care provider or pharmacist, as appropriate. ??This information is not intended to serve as substitution for assessment and evaluation by a qualified health care provider. If you do not have a primary care provider, you may find a [facility] provider by calling [facility] [employer] at [phone]. For information about the plan of care including goals and instructions for your diagnosis, please see the patient education orders section of this document. Patient Education Materials?? The content of this educational material or handout may have been modified, supplemented, or adapted from its original content and format to support your individualized medical care. Patient Care team information Care Team Personnel Name: Jailene Harris Position: [facility] Onco RN Member Role: Primary Care Nurse Name: Mona Rendon NP Position: [facility] PCO Associate Professional Member Role: PCP Address: Address: [address] [place] [address]- Name: Blake Kdid MD Position: [facility] PARISH NURSE MD Member Role: [employer] PARISH NURSE Physician Address: Address: [address] [place] [address]- Name: Jodi Nguyễn RN Position: [facility] Onco RN Member Role: Primary Care Nurse Name: Kadi Torre RN Position: S RN Member Role: Primary Care Nurse Name: Pierce Nichols MD Position: [facility] Physician - Oncology Med Service: Hematology & Oncology Member Role: Admitting Physician Address: Address: [address] [place] [address] [facility] [place] [address]- Care Team Related Persons Name: BELEM SNYDER Address: home [address] [place] [address] Name: JAIDA SNYDER Address: home [address] [place] [address] Name: MEDARDO MEZA Address: home [address] [place] [address]
--- OUTSIDE RECORDS SUMMARY | 2022-12-26 22:16 | XMS_ITS | Continuity of Care Document ---
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 Second lot [id number] exp 11/26/2015 Medications Albuterol 90 mcg Inhaler [...] Refills, Maintenance, 06/01/21 9:02:00 EST, Tablet, [facility], 152.4, cm, 05/21/21 18:46:00 EST, Height, [...] 1 Refills,Maintenance, 06/01/21 9:04:00 EST, Tablet, [facility], Partial fill upon patient request ifthe [...] recent to oldest [Reference Range]: 1 Height 158.5 cm (04/28/22 10:16 AM) Weight 83.5 kg (04/28/22 10:16 AM) Oxygen Saturation [94-100 %] 99 % (04/28/22 10:16 AM) Pulse Rate [55-90 bpm] 82 bpm (04/28/22 10:16 AM) Body Mass Index [18.5-24.99 kg/m2] 33.24 kg/m2 *>HHI* (04/28/22 10:16 AM) Blood Pressure [90-138/55-84 mm Hg] 120/ 101mm Hg (04/28/22 10:16 AM) Respiratory Rate [16-30 br/min] 18 br/mi n (04/28/22 10:16 AM) Temperature [96.8-100.4 DegF] 97.7 DegF (04/28/22 10:16 AM) Liters per Minute 0 L/min (04/28/22 10:16 AM) Mode of Delivery (Oxygen) Room air (04/28/22 10:16 AM) Blood pressure sites Arm, left (04/28/22 10:16 AM) Temperature Route Oral (04/28/22 10:16 AM) Dry Weight 83.5 kg (04/28/22 10:16 AM) Weight Obtained Via Standing scale (04/28/22 10:16 AM) Dry Weight Obtained Via Standing scale (04/28/22 10:16 AM) Social History Social History Type Response Tobacco Other: 3/4 ppd. Sex Note * Yojana Smith: PERFORM, SIGN, VERIFY Event Display: Patient Education/Instruction Authored Date: [id number] [facility] Clinical Summary Name GUDELIA SNYDER Age 36 Years 1985 PCP Justice CASTILLO, Mona PCP Visit Date 04/25/2022 13:45:00 Additional Instructions: Scheduled Appointments?? Future Appointments ?No [...] Nausea & Vomiting. Refills: 1. Next Dose: Temozolomide (temozolomide 100 mg oral capsule) 4 capsule Oral Daily. Next Dose: Temozolomide (temozolomide 140 mg oral capsule) TAKE 1 CAPSULE BY MOUTH DAILY AT BEDTIME FOR 5 DAYSWITH OTHER (TOTAL DOSE 255MG). Refills: 0. Next Dose: zonisamide (zonisamide 25 mg oral capsule) 1 capsule Oral twice a day. Next Dose: Allergy Info:?? Pineapple; Other Environmental Allergy; Pollen; Animal Dander; Keppra Medications Given This Visit Future Orders ?No future orders Vital Signs Height Weight BMI Blood Pressure / Temperature Pulse Rate Respiratory Rate 02 Sat Mode of Delivery / You can now view a summary of your hospital visit from the comfort of your home through a free online portal called [email or web address]. [email or web address] is a website that allows you to securely view your medical information including discharge summary, medications and follow-up visits. ??You can alsosend a secure electronic message to your doctor???s office to request appointments, renew medications or just ask a question. You can enroll at [email or web address] or register during your next office visit. [...] primary care provider, you may find a [facility] provider by calling [facility] [employer] at [phone]. For information about the plan of care [...] Care Team Personnel Name: Jailene Harris Position: [facility] Onco RN Member Role: Primary Care Nurse Name: Mona Rendon NP Position: [facility] PCO Associate Professional Member Role: PCP Address: Address: [address] [place] [address]- Name: Blake Kidd MD Position: [facility] MANUFACTURING QUALITY TECHNICIAN MD Member Role: [employer] MANUFACTURING QUALITY TECHNICIAN Physician Address: Address: [address] [place] [address]- Name: Jodi Nguyễn RN Position: [facility] RN Member Role: Primary Care Nurse Name: Enedelia Chamberlain RN Position: [facility] RN Member Role: Primary Care Nurse Name: Kadi Torre RN Position: [facility] RN Member Role: Primary Care Nurse Care Team Related Persons Name: BELEM SNYDER Address: home [address] [place] [address] Name: JAIDA SNYDER Address: home [address] [place] [address] Name: MEDARDO MEZA Address: [address] [place] [address]
--- OUTSIDE RECORDS SUMMARY | 2022-12-26 22:16 | XMS_ITS | Continuity of Care Document ---
Author Name Unknown Organization [facility] Address [address] [place] [address]- Care Team Providers Care Menu Planner Name Role Phone Justice CASTILLO, Mona Primary Care Physician [phone] [place] [facility] [place] [facility] [place]/22/[place] - 01/21/[address] [id number] Allergies, Adverse Reactions, Alerts Substance Reaction Severity [...] mL in dorsal gluteal left. Second lot [id number] exp 11/26/2015 Medications Albuterol 90 mcg Inhaler 2, puffs, Inhalation, Every 4 hours, PRN, Maintenance, 01/10/13 11:18:40 Start Date: 01/10/13 Status: Ordered dexamethasone 2 mg oral tablet See Instructions, 1 tablet By Mouth 2 times a day days 1-5 of chemotherapy, then t tablet in AM x 2days, then stop, # 50 tablet, 0 Refills, Maintenance, 06/01/20 13:08:00 EST, Tablet, [facility], 160, cm, 05/13/20 15:07:00 EST, Height, 87.1,... Start Date: 06/01/20 Status: Ordered Flonase 50 mcg/inh nasal spray 2 sprays, Nares, Both, Daily in AM, # 15.8 mL, 0 Refills, Maintenance, 10/19/20 14:57:00 EDT, [place], [facility]/pharmacy #[id number], Partial fill upon patient request if the prescription is for a schedule II opioid drug., 2 sprays Nares, Both Daily in AM, 160, cm... Start Date: 10/19/20 Status: Ordered LORazepam 0.5 mg oral tablet 1 tablet = 0.5 mg, By Mouth, 3 times a day, PRN for anxiety, [facility] reviewed 11/12/2020, # 60 tablet, 0 Refills, Maintenance, 11/12/20 8:58:00 EDT, Tablet, [facility]/pharmacy #[id number], 160, cm, 10/19/20 15:19:00 EDT, Height, 99.8, kg, 10/19/20 15:19:00 EDT, D... Start Date: 11/12/20 Status: Ordered ondansetron 8 mg oral tablet See Instructions, take 30minutes before chemotherapy then as needed every 8 hrs for Daily 5 days while on Temodar, # 15 tablet, 5 Refills, Maintenance, 12/22/20 8:53:00 EDT, [facility], 161, cm, 12/02/20 17:19:00 EDT, Height, 101, kg, 12/02/20... Start Date: 12/22/20 Status: Ordered prochlorperazine 5 mg oral tablet 1 tablet = 5 mg, By Mouth, Every 6 hours, PRN Nausea & Vomiting, may cause drowsiness, # 30 tablet, 0 Refills, Maintenance, 08/26/19 9:18:00 EDT, [facility], 159.4, cm, 06/27/19 14:32:00 [...] 0 Refills, Maintenance, 01/17/20 15:15:00 EDT, [id number], 163,cm, 12/06/19 12:26:00 EDT, Height, 73, [...]
--- OUTSIDE RECORDS SUMMARY | 2022-12-26 22:16 | XMS_ITS | Continuity of Care Document ---
Author Name Unknown Organization [facility] Address [address] [place] [address]- Care Team Providers Care Supervisor Orchard Name Role Phone Mona Rendon NP Primary Care Physician Encounter [facility] Date(s): 06/03/19 - 08/27/[address] [address] [phone] Encounter Diagnosis Malignant neoplasm of cerebrum, except lobes and ventricles(Final) - Discharge Disposition: A-D/C Home Attending Physician: Corine Castillo MD Admitting Physician: Corine Castillo MD Referring Physician: Corine Castillo MD Allergies, Adverse Reactions, Alerts Substance Reaction [...] mL in dorsal gluteal left. Second lot [id number] exp 11/26/2015 Medications acetaminophen 325 mg oral tablet 650 mg, 2, tablet, By Mouth, 4 times a day, PRN, Refills 0, Maintenance, Pain , Moderate, 01/14/19 13:38:09 EDT Start Date: 01/14/19 Status: Ordered Albuterol 90 mcg Inhaler 2, puffs, Inhalation, Every 4 hours, PRN, Maintenance, 01/10/13 11:18:40 Start Date: 01/10/13 Status: Ordered Bactrim 400 mg-80 mg oral tablet See Instructions, 1 tablet By Mouth Every monday during radiation therapy, # 18 tablet, 0 Refills, Maintenance, 04/22/19 11:39:00 EST, [facility]/pharmacy #[id number], 1 tablet By Mouth Every monday during radiation therapy, 159.4... Start Date: 04/22/19 Status: Ordered dexamethasone 2 mg oral tablet See Instructions, 1 tablet By Mouth 2 times a day days 1-5 of chemotherapy, then t tablet in AM x 2days, then stop, # 50 tablet, 0 Refills, Maintenance, 08/21/19 12:48:00 EDT, Tablet, [facility], 159.4, cm, 06/27/19 14:32:00 EDT, Height, 70.4... Start Date: 08/21/19 Status: Ordered methylphenidate 5 mg oral tablet See Instructions, 1 tablet By Mouth 2- 3 times a day, last dose by 4 PM, # 90 tablet, Refills 0, Tot. Refills 0, Maintenance, 07/31/19 10:08:00 EDT, Instructions Replace Required Details, Print Requisition Start Date: 07/31/19 Status: Ordered ondansetron 8 mg oral tablet 1 tablet = 8 mg, By Mouth, Daily, 30 minutes before chemotherapy, # 42 tablet, 1 Refills, Maintenance, 05/10/19 14:35:00 EST, [facility], 159.4, cm, 05/09/19 11:12:00 EST, Height, 71.1, kg, 05/09/19 11:12:00 EST, Dry Weight Start Date: 05/10/19 Stop Date: 08/02/19 Status: Ordered prochlorperazine 5 mg oral tablet 1 tablet = 5 mg, By Mouth, Every 6 hours, PRN Nausea & Vomiting, may cause drowsiness, # 30 tablet, 0 Refills, Maintenance, 08/26/19 9:18:00 EDT, [facility], 159.4, cm, 06/27/19 14:32:00 EDT, [...] capsule, 4 Refills, Maintenance, 07/26/19 15:55:00 EDT, [facility], 159.4, cm, 06/27/19 14:32:00 EDT, Height, 70.4, kg, 06/10/19 11:09:00 EST, Dry Weight Start Date: 07/26/19 Status: Ordered Vimpat 50 mg oral tablet 1 tablet = 50 mg, By Mouth, 2 times a day, # 180 tablet, 0 Refills, Maintenance, 02/25/19 10:48:22 EST, Tablet Start Date: 02/25/19 Status: Ordered Zofran 8 mg oral tablet 1 tablet = 8 mg, By Mouth, 3 times a day, take 30 min before chemotherapy, then every 8 hours if needed, # 15 tablet, 5 Refills, Maintenance, 06/17/19 16:34:00 EST, [facility] [place] [facility] on 06[place]26 for 06/27 visit Start [...] recent to oldest [Reference Range]: 1 Height 159.4 cm (06/27/19 2:32 PM) Oxygen Saturation [94-100 %] 100 % (06/27/19 2:32 PM) Pulse Rate [55-90 bpm] 69 bpm (06/27/19 2:32 PM) Blood Pressure [90-138/55-84 mm Hg] 114/ 73mm Hg (06/27/19 2:32 PM) Respiratory Rate [16-30 br/min] 18 br/mi n (06/27/19 2:32 PM) Temperature [96.8-100.4 DegF] 97.8 DegF (06/27/19 2:32 PM) Liters per Minute 0 L/min (06/27/19 2:32 PM) Mode of Delivery (Oxygen) Room air (06/27/19 2:32 PM) Blood pressure sites Arm, left (06/27/19 2:32 PM) Temperature Route Oral (06/27/19 2:32 PM) Social History Social History Type Response Smoking Status Current every day juliano tsokes entered on: 09/02/16 Sex
--- OUTSIDE RECORDS SUMMARY | 2022-12-26 22:16 | XMS_ITS | Continuity of Care Document ---
Author Name Unknown Organization [facility] Address [address] [place] [address]- Care Team Providers Care Sausage Grinder Name Role Phone Justice CASTILLO, Mona Primary Care Physician Encounter [facility] Date(s): 04/25/22 - 05/25/[address] [address] Attending Physician: Admtr, Ar8 Admitting Physician: Admtr, Ar8 Referring Physician: Admtr, Ar8 Allergies, Adverse Reactions, Alerts Substance Reaction Severity Status Keppra Active Pineapple Active Animal Dander Active Pollen Active Other [...] mL in dorsal gluteal left. Second lot [id number] exp 11/26/2015 Medications Albuterol 90 mcg Inhaler [...] Refills, Maintenance, 06/01/21 9:02:00 EST, Tablet, [facility], 152.4, cm, 05/21/21 18:46:00 EST, Height, [...] 1 Refills,Maintenance, 06/01/21 9:04:00 EST, Tablet, [facility], Partial fill upon patient request ifthe [...] Most recent to oldest [Reference Range]: 1 2 Height 159.4 cm (06/10/19 11:09 AM) 160 cm (02/25/19 10:46 AM) Weight 70.4 kg (06/10/19 11:09 AM) 71.3 kg (02/25/19 10:46 AM) Oxygen Saturation [94-100 %] 100 % (06/10/19 11:09 AM) 99 % (02/25/19 10:46 AM) Pulse Rate [55-90 bpm] 72 bpm (06/10/19 11:09 AM) 76 bpm (02/25/19 10:46 AM) Body Mass Index [18.5-24.99] 27.71 *H* (06/10/19 11:09 AM) 27.85 *H* (02/25/19 10:46 AM) Blood Pressure [90-138/55-84 mm Hg] 114/ 62mm Hg (06/10/19 11:09 AM) 120/52mm Hg (02/25/19 10:46 AM) Respiratory Rate [16-30 br/min] 26 br/mi n (06/10/19 11:09 AM) 16 br/min (02/25/19 10:46 AM) Temperature [96.8-100.4 DegF] 97.9 DegF (06/10/19 11:09 AM) 98.3 DegF (02/25/19 10:46 AM) Liters per Minute 0 L/min (06/10/19 11:09 AM) 0 L/min (02/25/19 10:46 AM) Mode of Delivery (Oxygen) Room air (06/10/19 11:09 AM) Room air (02/25/19 10:46 AM) Blood pressure sites Arm, right (06/10/19 11:09 AM) Arm, right (02/25/19 10:46 AM) Temperature Route Oral (06/10/19 11:09 AM) Oral (02/25/19 10:46 AM) Dry Weight 70.4 kg (06/10/19 11:09 AM) 71.3 kg (02/25/19 10:46 AM) Weight Obtained Via Standing scale (06/10/19 11:09 AM) Standing scale (02/25/19 10:46 AM) Dry Weight Obtained Via Standing scale (06/10/19 11:09 AM) Standing scale (02/25/19 10:46 AM) Social History Social History Type Response Tobacco Other: 3/4 ppd. Sex Patient Care team information Care Team Personnel Name: Jailene Harris Position: [facility] Onco RN Member Role: Primary Care Nurse Name: Mona Rendon NP Position: [facility] PCO Associate Professional Member Role: PCP Address: Address: [address] [place] [address] Name: Blake Kidd MD Position: [facility] HOIST WORKER MD Member Role: Lifetime HOIST WORKER Physician Address: Address: [address] [place] [address] Name: Jodi Nguyễn RN Position: [facility] RN Member Role: Primary Care Nurse Name: Enedelia Chamberlain RN Position: [facility] RN Member Role: Primary Care Nurse Name: Kadi Torre RN Position: [facility] RN Member Role: Primary Care Nurse Care Team Related Persons Name: BELEM SNYDER Address: home [address] [place] [address] Name: JAIDA SNYDER Address: home [address] [place] [id number] Name: MEDARDO MEZA Address: home [address] [place] [address]
--- OUTSIDE RECORDS SUMMARY | 2022-12-26 22:16 | XMS_ITS | Continuity of Care Document ---
Author Name Unknown Organization [facility] Address [address] [place] [address]- Care Team Providers Care Film Flat Inspector Name Role Phone Justice CASTILLO, Mona Primary Care Physician [phone] Encounter [facility] Date(s): 03/22/19 - 04/01/19 [facility] [address] [place] [address]- [facility] Attending Physician: Sylvia Aggarwal Admitting Physician: AdmtrSylvia Referring Physician: AdmtrSylvia Allergies, Adverse Reactions, Alerts Substance Reaction Severity [...] mL in dorsal gluteal left. Second lot [id number] exp 11/26/2015 Medications acetaminophen 325 mg oral tablet 650 mg, 2, tablet, By Mouth, 4 times a day, PRN, Refills 0, Maintenance, Pain , Moderate, 01/14/19 13:38:09 EDT Start Date: 01/14/19 Status: Ordered Albuterol 90 mcg Inhaler 2, puffs, Inhalation, Every 4 hours, PRN, Maintenance, 01/10/13 11:18:40 Start Date: 01/10/13 Status: Ordered ondansetron 8 mg oral tablet 1 tablet = 8 mg, By Mouth, Daily, 30 minutes before chemotherapy, # 42 tablet, 0 Refills, Maintenance, 03/22/19 16:58:17 EST Start Date: 03/22/19 Stop Date: 05/03/19 Status: Ordered sulfamethoxazole-trimethoprim 400 mg-80 mg oral tablet See Instructions, 1 tablet By Mouth Everymon throughout chemotherapy, # 18 tablet, 0 Refills, Maintenance, 03/22/19 16:59:27 EST Start Date: 03/22/19 Status: Ordered temozolomide 100 mg oral capsule 1 capsule = 100 mg, By Mouth, Daily at bedtime, total daily dose 130 mg, # 42 capsule, 0 Refills, Maintenance, 03/22/19 16:57:03 EST Start Date: 03/22/19 Status: Ordered temozolomide 20 mg oral capsule 1 capsule = 20 mg, By Mouth, Daily at bedtime, total daily dose 130 mg, # 42 capsule, 0 Refills, Maintenance, 03/22/19 16:56:59 EST Start Date: 03/22/19 Stop Date: 05/03/19 Status: Ordered temozolomide 5 mg oral capsule 2 capsule = 10 mg, By Mouth, Daily at bedtime, # 84 capsule, 0 Refills, Maintenance, 03/22/19 16:56:55 EST Start Date: 03/22/19 Stop Date: 05/03/19 Status: Ordered Vimpat 50 mg oral tablet 1 tablet = 50 mg, By Mouth, 2 times a day, # 180 tablet, 0 Refills, Maintenance, 02/25/19 10:48:22 EST, Tablet Start Date: 02/25/19 Status: Ordered Problem List Condition Effective Dates [...]
--- OUTSIDE RECORDS SUMMARY | 2022-12-26 22:16 | XMS_ITS | Continuity of Care Document ---
Author Name Unknown Organization [facility] Address [address] [place] [address]- Care Team Providers Care Sealer Sander Name Role Phone Justice CASTILLO, Mona Primary Care Physician Encounter [facility] [place] Date(s): 11/22/19 - 11/22/[address] [address] [phone] Discharge Disposition: A-D/C Home Attending Physician: Meg ROMERO, Pal Monaco Admitting Physician: Meg ROMERO, Pal Monaco Referring Physician: Not on Staff, Referring MD [...] mL in dorsal gluteal left. Second lot [id number] exp 11/26/2015 Medications acetaminophen 325 mg oral [...] 0 Refills, Maintenance, 08/21/19 12:48:00 EDT, Tablet, [facility], 159.4, cm, 06/27/19 14:32:00 EDT, [...] tablet, 1 Refills, Maintenance, 05/10/19 14:35:00 EST, [facility], 159.4, cm, 05/09/19 11:12:00 EST, Height, 71.1, kg, 05/09/19 11:12:00 EST, Dry Weight Start Date: 05/10/19 Stop Date: 08/02/19 Status: Ordered prochlorperazine 5 mg oral tablet 1 tablet = 5 mg, By Mouth, Every 6 hours, PRN Nausea & Vomiting, may cause drowsiness, # 30 tablet, 0 Refills, Maintenance, 08/26/19 9:18:00 EDT, [facility], 159.4, cm, 06/27/19 14:32:00 EDT, [...] capsule, 4 Refills, Maintenance, 07/26/19 15:55:00 EDT, [facility], 159.4, cm, 06/27/19 14:32:00 EDT, Height, 70.4, kg, 06/10/19 11:09:00 EST, Dry Weight Start Date: 07/26/19 Status: Ordered Zofran 8 mg oral tablet 1 tablet = 8 mg, By Mouth, 3 times a day, take 30 min before chemotherapy, then every 8 hours if needed, # 15 tablet, 5 Refills, Maintenance, 06/17/19 16:34:00 EST, deliver to [facility] on 06/26 for 06/27 visit Start [...] recent to oldest [Reference Range]: 1 2 3 Height 162 cm (11/22/19 11:21 AM) 162 cm (11/22/19 9:52 AM) 162 cm (11/22/19 9:08 AM) Weight 70 kg (11/22/19 11:21 AM) 70 kg (11/22/19 9:52 AM) 70 kg (11/22/19 9:08 AM) Oxygen Saturation [94-100 %] 99 % (11/22/19 11:21 AM) 100 % (11/22/19 9:52 AM) 100 % (11/22/19 9:08 AM) Pulse Rate [55-90 bpm] 85 bpm (11/22/19 11:21 AM) 51 bpm *L* (11/22/19 9:52 AM) 63 bpm (11/22/19 9:08 AM) Body Mass Index [18.5-24.99] 26.67 *H* (11/22/19 11:21 AM) 26.67 *H* (11/22/19 9:52 AM) Blood Pressure [90-138/55-84 mm Hg] 102/66mm Hg (11/22/19 11:21 AM) 110/70mm Hg (11/22/19 9:52 AM) 103/72mm Hg (11/22/19 9:08 AM) Respiratory Rate [16-30 br/min] 20 br/min (11/22/19 11:21 AM) 20 br/min (11/22/19 9:52 AM) 17 br/min (11/22/19 9:08 AM) Temperature [96.8-100.4 DegF] 98.4 DegF (11/22/19 9:08 AM) Mode of Delivery (Oxygen) Room air (11/22/19 11:21 AM) Room air (11/22/19 9:52 AM) Room air (11/22/19 9:08 AM) Temperature Route Oral (11/22/19 9:08 AM) Dry Weight 70 kg (11/22/19 11:21 AM) 70 kg (11/22/19 9:52 AM) 70 kg (11/22/19 9:08 AM) Social History Social History Type Response Smoking Status Current every day juliano stokes entered on: 09/02/16 Sex
--- OUTSIDE RECORDS SUMMARY | 2022-12-26 22:16 | XMS_ITS | Continuity of Care Document ---
Author Name Unknown Organization [facility] Address [address] [place] [address]- Care Team Providers Care Hotel Lobby Concierge Name Role Phone Justice CASTILLO, Mona Primary Care Physician [phone] [place] [facility]/15[place]20 - 08/14/[address] [address] Attending Physician: AdmtrSylvia Admitting Physician: Admtr, Ar8 Referring Physician: Admtr, [...] mL in dorsal gluteal left. Second lot [id number] exp 11/26/2015 Medications acetaminophen 325 mg oral [...] Refills, Maintenance, 06/01/20 13:08:00 EST, Tablet, [facility], 160, cm, 05/13/20 15:07:00 EST, Height, 87.1,... Start Date: 06/01/20 Status: Ordered LORazepam 0.5 mg oral tablet 1 tablet = 0.5 mg, By Mouth, 3 times a day, PRN for anxiety, MassPAT reviewed 06/01/2020, # 60 tablet, 0 Refills, Maintenance, 06/01/20 13:00:00 EST, Tablet, [facility], 160, cm, 05/13/20 15:07:00 EST, Height, 87.1, kg, 05/13/20 15:07:00 EST,... Start Date: 06/01/20 Status: Ordered ondansetron 8 mg oral tablet 1 tablet = 8 mg, By Mouth, Daily, 30 minutes before chemotherapy, # 42 tablet, 1 Refills, Maintenance, 07/16/20 13:41:00 EDT, [facility], 160, cm, 07/15/20 10:30:00 EDT, Height, 95.9, kg, 07/15/20 10:30:00 EDT, Dry Weight Start Date: 07/16/20 Stop Date: 10/08/20 Status: Ordered prochlorperazine 5 mg oral tablet 1 tablet = 5 mg, By Mouth, Every 6 hours, PRN Nausea & Vomiting, may cause drowsiness, # 30 tablet, 0 Refills, Maintenance, 08/26/19 9:18:00 EDT, [facility], 159.4, cm, 06/27/19 14:32:00 EDT, Height, 70.4, kg, 06/10/19 11:09:00 EST, Dry Weight Start Date: 08/26/19 Status: Ordered Ritalin 5 mg oral tablet 5 mg, 1, tablet, By Mouth, 2 times a day, per pt, Refills 0, Tot. Refills 0, Maintenance, 04/22/19 11:47:00 EST Start Date: 04/22/19 Status: Ordered temozolomide 100 mg oral capsule 4 capsule = 400 mg, By Mouth, Daily at bedtime, for 5 days, # 20 capsule, 5 Refills, Acute 09/02/2113:30:00 EDT, 08/03/20 14:30:00 EDT, Partial fill upon patient request if the prescription is for aschedule II opioid drug., 160, cm, 07/28/20 0:08:00... Start Date: 08/03/20 Stop Date: 09/02/20 Status: Ordered temozolomide 140 mg oral capsule 1 capsule = 140 mg, By Mouth, Daily at bedtime, daily dose 340 mg, # 5 capsule, 5 Refills, Maintenance, 11/27/19 16:39:00 EDT, Dry Weight Start Date: 11/27/19 Status: Ordered temozolomide 180 mg oral capsule 2 capsule = 360 mg, By Mouth, Daily at bedtime, # 10 capsule, 5 Refills, Maintenance, 02/26/20 13:26:00 EST, [facility], 161, cm, 02/19/20 11:43:00 EST, Height, 79.4, kg, 02/19/20 11:43:00 EST, Dry Weight Start Date: 02/26/20 Stop Date: 03/27/20 Status: Ordered Zofran 8 mg oral tablet 1 tablet = 8 mg, By Mouth, Every 8 hours, PRN Nausea, take 30 min before chemotherapy, then every 8hours if needed, # 10 each, 0 Refills, Maintenance, 01/17/20 15:15:00 EDT, [facility]/pharmacy #[id number], 163,cm, 12/06/19 12:26:00 EDT, Height, [...]
--- OUTSIDE RECORDS SUMMARY | 2022-12-26 22:17 | XMS_ITS | Continuity of Care Document ---
Author Name Unknown Organization [facility] Address [address] [place] [address]- Care Team Providers Care Auto Parts Manager Name Role Phone Justice CASTILLO, Mona Primary Care Physician En[place] [facility] [place] Date(s): 01/21/21 - 01/21/[address] [address]- Encounter Diagnosis Chest pain(Final) - 01/21/21 Discharge Disposition: A-D/C AMA Attending Physician: El Mendes DO Admitting Physician: El Mendes DO Referring Physician: Not on Staff, Referring MD [...] mL in dorsal gluteal left. Second lot [id number] exp 11/26/2015 Medications Albuterol 90 mcg Inhaler 2, puffs, Inhalation, Every 4 hours, PRN, Maintenance, 01/10/13 11:18:40 Start Date: 01/10/13 Status: Ordered dexamethasone 2 mg oral tablet See Instructions, 1 tablet By Mouth 2 times a day days 1-5 of chemotherapy, then t tablet in AM x 2days, then stop, # 50 tablet, 0 Refills, Maintenance, 06/01/20 13:08:00 EST, Tablet, [facility], 160, cm, 05/13/20 15:07:00 EST, Height, 87.1,... Start Date: 06/01/20 Status: Ordered Flonase 50 mcg/inh nasal spray 2 sprays, Nares, Both, Daily in AM, # 15.8 mL, 0 Refills, Maintenance, 10/19/20 14:57:00 EDT, [place], [facility]/pharmacy #[id number], Partial fill upon patient request if the prescription is for a schedule II opioid drug., 2 sprays Nares, Both Daily in AM, 160, cm... Start Date: 10/19/20 Status: Ordered LORazepam 0.5 mg oral tablet 1 tablet = 0.5 mg, By Mouth, 3 times a day, PRN for anxiety, MassPAT reviewed 11/12/2020, # 60 tablet, 0 Refills, Maintenance, 11/12/20 8:58:00 EDT, Tablet, [facility]/pharmacy #[id number], 160, cm, 10/19/20 15:19:00 EDT, Height, 99.8, kg, 10/19/20 15:19:00 EDT, D... Start Date: 11/12/20 Status: Ordered ondansetron 8 mg oral tablet See Instructions, take 30minutes before chemotherapy then as needed every 8 hrs for Daily 5 days while on Temodar, # 15 tablet, 5 Refills, Maintenance, 12/22/20 8:53:00 EDT, [facility], 161, cm, 12/02/20 17:19:00 EDT, [...] 0 Refills, Maintenance, 01/17/20 15:15:00 EDT, [id number], 163,cm, 12/06/19 12:26:00 EDT, Height, 73, kg, [...] to oldest [Reference Range]: 1 2 Height 160 cm (01/21/21 10:59 AM) 160 cm (01/21/21 10:57 AM) Weight 105 kg (01/21/21 10:59 AM) 105 kg (01/21/21 10:57 AM) Oxygen Saturation [94-100 %] 99 % (01/21/21 10:57 AM) Pulse Rate [55-90 bpm] 62 bpm (01/21/21 10:57 AM) Body Mass Index [18.5-24.99] 41.02 *>HHI* (01/21/21 10:57 AM) Blood Pressure [90-138/55-84 mm Hg] 113/ 74mm Hg (01/21/21 10:57 AM) Respiratory Rate [16-30 br/min] 18 br/mi n (01/21/21 10:57 AM) Temperature [96.8-100.4 DegF] 97.7 DegF (01/21/21 10:57 AM) Mode of Delivery (Oxygen) Room air (01/21/21 10:57 AM) Blood pressure sites Arm, left (01/21/21 10:57 AM) Temperature Route Oral (01/21/21 10:57 AM) Dry Weight 105 kg (01/21/21 10:59 AM) 105 kg (01/21/21 10:57 AM) Social History Social History Type Response Smoking Status Current every day juliano stokes entered on: 09/02/16 Sex
--- OUTSIDE RECORDS SUMMARY | 2022-12-26 22:17 | XMS_ITS | Continuity of Care Document ---
Author Name Unknown Organization [facility] Address [address] [place] [address]- Care Team Providers Care Web Content Developer Name Role Phone Justice CASTILLO, Mona Primary Care Physician [phone] [place] [facility] [place] 09/21/20 - 10/21/[address] [address] Attending Physician: AdmSylvia puentes Admitting Physician: Admtr, Ar8 Referring Physician: Admtr, [...] mL in dorsal gluteal left. Second lot [id number] exp 11/26/2015 Medications Albuterol 90 mcg Inhaler 2, puffs, Inhalation, Every 4 hours, PRN, Maintenance, 01/10/13 11:18:40 Start Date: 01/10/13 Status: Ordered dexamethasone 2 mg oral tablet See Instructions, 1 tablet By Mouth 2 times a day days 1-5 of chemotherapy, then t tablet in AM x 2days, then stop, # 50 tablet, 0 Refills, Maintenance, 02/15/21 13:08:00 EST, Tablet, [facility], 160, cm, 05/13/20 15:07:00 EST, Height, 87.1,... Start Date: 06/01/20 Status: Ordered Flonase 50 mcg/inh nasal spray 2 sprays, Nares, Both, Daily in AM, # 15.8 mL, 0 Refills, Maintenance, 10/19/20 14:57:00 EDT, [place], [facility]/pharmacy #[id number], Partial fill upon patient request if the prescription is for a schedule II opioid drug., 2 sprays Nares, Both Daily in AM, 160, cm... Start Date: 10/19/20 Status: Ordered LORazepam 0.5 mg oral tablet 1 tablet = 0.5 mg, By Mouth, 3 times a day, PRN for anxiety, MassPAT reviewed 06/01/2020, # 60 tablet, 0 Refills, Maintenance, 06/01/20 13:00:00 EST, Tablet, [facility], 160, cm, 05/13/20 15:07:00 EST, Height, 87.1, kg, 05/13/20 15:07:00 EST,... Start Date: 06/01/20 Status: Ordered ondansetron 8 mg oral tablet 1 tablet = 8 mg, By Mouth, Daily, 30 minutes before chemotherapy, # 42 tablet, 1 Refills, Maintenance, 07/16/20 13:41:00 EDT, [facility], 160, cm, 07/15/20 10:30:00 EDT, Height, 95.9, kg, 07/15/20 10:30:00 EDT, Dry Weight Start Date: 07/16/20 Stop Date: 10/08/20 Status: Ordered predniSONE 20 mg oral tablet 1 tablet = 20 mg, By Mouth, 2 times a day, for 3 days, # 6 tablet, 0 Refills, Acute 10/22/20 14:55:00 EDT, 10/19/20 14:55:00 EDT, Tablet, [facility]/pharmacy #[id number], Partial fill upon patient request if the prescription is for a schedule II opioid drug., 160,... Start Date: 10/19/20 Stop Date: 10/22/20 Status: Ordered prochlorperazine 5 mg oral tablet 1 tablet = 5 mg, By Mouth, Every 6 hours, PRN Nausea & Vomiting, may cause drowsiness, # 30 tablet, 0 Refills, Maintenance, 08/26/19 9:18:00 EDT, [facility], 159.4, cm, 06/27/19 14:32:00 [...] each, 0 Refills, Maintenance, 01/17/20 15:15:00 EDT, [facility]/pharmacy #[id number], 163,cm, 12/06/19 12:26:00 EDT, Height, 73, kg, 12/06/19... Start Date: 01/17/20 Stop Date: 01/20/20 Status: Ordered zonisamide 25 mg oral capsule See Instructions, 1 capsule By Mouth 2 times a day for 1 week, then 2 bid for 1 week then 3 bid, # 120 capsule, 2 Refills, Maintenance, 10/14/20 15:29:00 EDT, [place], [id number], Partial fill upon patient request if the [...]
--- OUTSIDE RECORDS SUMMARY | 2022-12-26 22:17 | XMS_ITS | Continuity of Care Document ---
Author Name Unknown Organization [facility] Address [address] [facility] [address] [place] [address]- Care Team Providers Care Instrument Adjuster Name Role Phone Justice CASTILLO, Mona Primary Care Physician Encounter [facility] Date(s): 10/21/19 - 11/20/19 [facility] [place] [address] [facility] [address] [place] [address]- [place] Attending Physician: Admtr, Ar8 Admitting Physician: Admtr, [...] mL in dorsal gluteal left. Second lot [id number] exp 11/26/2015 Medications acetaminophen 325 mg oral [...] Refills, Maintenance, 06/17/19 16:34:00 EST, deliver to [facility] on 06/26 for 06/27 visit Start [...]
--- OUTSIDE RECORDS SUMMARY | 2022-12-26 22:17 | XMS_ITS | Continuity of Care Document ---
Author Name Unknown Organization [facility] Address [address] [facility], 3r d Floor, [address] [place] [address]- Care Team Providers Care Harbor Engineer Name Role Phone Justice CASTILLO, Mona Primary Care Physician Encounter [facility] Date(s): 11/09/22 - 12/09/22 [facility] [address], [address] Floor, [address] [place] [id number] Attending Physician: Admtr, Ar8 Admitting Physician: Admtr, [...] mL in dorsal gluteal left. Second lot [id number] exp 11/26/2015 Medications Albuterol 90 mcg Inhaler [...] Refills, Maintenance, 06/01/21 9:02:00 EST, Tablet, [facility], 152.4, cm, 05/21/21 18:46:00 EST, Height, [...] 1 Refills,Maintenance, 06/01/21 9:04:00 EST, Tablet, [facility], Partial fill upon patient request ifthe [...] 09/2015 Social History Social History Type Response Tobacco Other: 3/4 ppd. Sex Patient Care team information Care Team Personnel Name: Jailene Harris Position: [facility] Onco RN Member Role: Primary Care Nurse Name: Mona Rendon NP Position: [facility] PCO Associate Professional Member Role: PCP Address: Address: [address] [place] [address]- Name: Blake Kidd MD Position: [facility] ROBOTICS TECHNICIAN MD Member Role: [employer] ROBOTICS TECHNICIAN Physician Address: Address: [address] [place] [address] Name: Jodi Nguyễn RN Position: [facility] Onco RN Member Role: Primary Care Nurse Name: Kadi Torre RN Position: [facility] RN Member Role: Primary Care Nurse Care Team Related Persons Name: BELEM SNYDER Address: home [address] [place] [id number] Name: JAIDA SNYDER OR NADIA Address: home [address] [place] [address] Name: MEDARDO MEZA Address: home [address] [place] [id number]
--- OUTSIDE RECORDS SUMMARY | 2022-12-26 22:17 | XMS_ITS | Continuity of Care Document ---
Author Name Unknown Organization [facility] Address [address] [place] [address]- Care Team Providers Care Pre Sales Systems Engineer Name Role Phone Justice CASTILLO, Mona Primary Care Physician [phone] Encounter [facility] Date(s): 05/24/21 - 10/02/[address] [address]- Encounter Diagnosis Malignant neoplasm of brain, unspecified(Final) - Discharge Disposition: A-D/C Home Attending Physician: Corine Castillo MD Admitting Physician: Corine Castillo MD Referring Physician: Not on Staff, Referring [...] mL in dorsal gluteal left. Second lot [id number] exp 11/26/2015 Medications Albuterol 90 mcg Inhaler [...] 1 Refills, Maintenance, 06/01/21 9:02:00 EST, Tablet, [facility], 152.4, cm, 05/21/21 18:46:00 EST, Height, [...] tablet, 1 Refills,Maintenance, 06/01/21 9:04:00 EST, Tablet, [facility], Partial fill upon patient request ifthe prescription is for a schedule II opioid drug., 152... Start Date: 06/01/21 Status: Ordered temozolomide 100 mg oral capsule 4 capsule = 400 mg, By Mouth, Daily, 0 Refills, Maintenance, 05/14/21 20:32:00 EST, Partial fill upon patient request if the prescription is for a schedule II opioid drug. Start Date: 05/14/21 Status: Ordered temozolomide 140 mg oral capsule See Instructions, TAKE 1 CAPSULE BY MOUTH DAILY AT BEDTIME FOR 5 DAYS WITH OTHER (TOTAL DOSE 255MG), # 5 capsule, 0 Refills, [facility], 152.4, cm, 05/21/21 18:46:00 EST, Height, 102.9, kg, 05/20/21 1:19:00 EST, Dry Weight Start Date: 05/27/21 Status: Ordered zonisamide 25 mg oral capsule 1 capsule = 25 mg, By Mouth, 2 times a day, 0 Refills, Maintenance, 05/21/21 11:13:00 EST, Capsule,Partial fill upon patient request if the prescription is for a schedule II opioid drug. 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 Due for removal in 09/2015 Vital Signs Most recent to oldest [Reference Range]: 1 2 Height 152.4 cm (08/02/21 11:44 AM) 152.4 cm (06/07/21 12:13 PM) Weight 101.2 kg (08/02/21 11:44 AM) 103.5 kg (06/07/21 12:13 PM) Oxygen Saturation [94-100 %] 99 % (08/02/21 11:44 AM) 99 % (06/07/21 12:13 PM) Pulse Rate [55-90 bpm] 78 bpm (08/02/21 11:44 AM) 97 bpm *H* (06/07/21 12:13 PM) Body Mass Index [18.5-24.99] 43.57 *>HHI* (08/02/21 11:44 AM) 44.56 *>HHI* (06/07/21 12:13 PM) Blood Pressure [90-138/55-84 mm Hg] 119/ 52mm Hg (08/02/21 11:44 AM) 123/66mm Hg (06/07/21 12:13 PM) Respiratory Rate [16-30 br/min] 18 br/mi n (08/02/21 11:44 AM) 18 br/min (06/07/21 12:13 PM) Temperature [96.8-100.4 DegF] 96.7 DegF *L* (08/02/21 11:44 AM) 97.3 DegF (06/07/21 12:13 PM) Liters per Minute 0 L/min (08/02/21 11:44 AM) 0 L/min (06/07/21 12:13 PM) Mode of Delivery (Oxygen) Room air (08/02/21 11:44 AM) Room air (06/07/21 12:13 PM) Blood pressure sites Arm, left (08/02/21 11:44 AM) Arm, right (06/07/21 12:13 PM) Temperature Route Temporal (08/02/21 11:44 AM) Temporal (06/07/21 12:13 PM) Dry Weight 101.2 kg (08/02/21 11:44 AM) 103.5 kg (06/07/21 12:13 PM) Weight Obtained Via Standing scale (08/02/21 11:44 AM) Standing scale (06/07/21 12:13 PM) Dry Weight Obtained Via Standing scale (08/02/21 11:44 AM) Standing scale (06/07/21 12:13 PM) Social History Social History Type Response Tobacco Other: 3/4 ppd. Sex
--- OUTSIDE RECORDS SUMMARY | 2022-12-26 22:17 | XMS_ITS | Continuity of Care Document ---
Author Name Unknown Organization [facility] Address [address] [place] [address]- Care Team Providers Care Conference Director Name Role Phone Justice CASTILLO, Mona Primary Care Physician [phone] Encounter [facility] Date(s): 02/10/21 - 04/26/[address] [address]- Encounter Diagnosis Malignant neoplasm of brain, unspecified(Final) [...] mL in dorsal gluteal left. Second lot [id number] exp 11/26/2015 Medications Albuterol 90 mcg Inhaler 2, puffs, Inhalation, Every 4 hours, PRN, Maintenance, 01/10/13 11:18:40 Start Date: 01/10/13 Status: Ordered dexamethasone 2 mg oral tablet See Instructions, 1 tablet By Mouth 2 times a day days 1-5 of chemotherapy, then t tablet in AM x 2days, then stop, # 50 tablet, 0 Refills, Maintenance, 04/06/21 17:41:00 EST, Tablet, [facility], 160, cm, 02/24/21 14:26:00 EST, Height, 105.3,... Start Date: 04/06/21 Status: Ordered Flonase 50 mcg/inh nasal spray 2 sprays, Nares, Both, Daily in AM, # 15.8 mL, 0 Refills, Maintenance, 10/19/20 14:57:00 EDT, Carter, [facility]/pharmacy #[id number], Partial fill upon patient request if the prescription is for a schedule II opioid drug., 2 sprays Nares, Both Daily in AM, 160, cm... Start Date: 10/19/20 Status: Ordered LORazepam 0.5 mg oral tablet 1 tablet = 0.5 mg, By Mouth, 2 times a day, PRN for anxiety, [facility] reviewed 04/06/2021 Dx: Brain Tumor, # 60 tablet, 0 Refills, Maintenance, 04/06/21 13:20:00 EST, Tablet, [facility]/pharmacy #[id number], 160, cm, 02/24/21 14:26:00 EST, Height, 105.3, kg, 02/24... Start Date: 04/06/21 Status: Ordered ondansetron 8 mg oral tablet See Instructions, take 30minutes before chemotherapy then as needed every 8 hrs for Daily 5 days while on Temodar, # 15 tablet, 5 Refills, Maintenance, 03/08/21 14:37:00 EST, [facility]/pharmacy #[id number], 160,cm, 02/24/21 14:26:00 EST, Height, 105.3, kg, 02/24... Start Date: 03/08/21 Status: Ordered prochlorperazine 5 mg oral tablet 1 tablet = 5 mg, By Mouth, Every 6 hours, PRN Nausea & Vomiting, may cause drowsiness, # 30 tablet, 0 Refills, Maintenance, 08/26/19 9:18:00 EDT, [facility], 159.4, cm, 06/27/19 14:32:00 EDT, [...] Supply Start Date: 10/14/20 Status: Ordered Zofran 4 mg oral tablet 1 tablet = 4 mg, By Mouth, Every 8 hours, PRN Nausea & Vomiting, # 20 tablet, 0 Refills, Maintenance, 02/09/21 6:01:00 EDT, Tablet, [facility]/pharmacy #[id number], Partial fill upon patient request if the prescription is for a schedule II opioid drug., 160, cm, 1... Start Date: 02/09/21 Status: Ordered Zofran 8 mg oral tablet 1 tablet = 8 mg, By Mouth, Every 8 hours, PRN Nausea, take 30 min before chemotherapy, then every 8hours if needed, # 10 each, 0 Refills, Maintenance, 01/17/20 15:15:00 EDT, [facility]/pharmacy #[id number], 163,cm, 12/06/19 12:26:00 EDT, Height, 73, kg, 12/06/19... Start Date: 01/17/20 Stop Date: 01/20/20 Status: Ordered zonisamide 25 mg oral capsule See Instructions, TAKE 1 CAPSULE TWICE A DAY FOR 1 WEEK THEN TAKE 2 CAPSULES TWICE A DAY FOR 1 WEEKTHEN TAKE 3 CAPSULES TWICE A DAY, # 120 capsule, 2 Refills, [id number], 160, cm, 02/24/21 14:26:00 EST, Height, 105.3, kg, 02/24/21 14:26:00 EST,... Start Date: 04/06/21 Status: Ordered Problem List Condition Effective Dates [...] recent to oldest [Reference Range]: 1 Height 160 cm (02/24/21 2:26 PM) Weight 105.3 kg (02/24/21 2:26 PM) Oxygen Saturation [94-100 %] 98 % (02/24/21 2:26 PM) Pulse Rate [55-90 bpm] 80 bpm (02/24/21 2:26 PM) Body Mass Index [18.5-24.99] 41.13 *>HHI* (02/24/21 2:26 PM) Blood Pressure [90-138/55-84 mm Hg] 99/6 4mm Hg (02/24/21 2:26 PM) Respiratory Rate [16-30 br/min] 18 br/mi n (02/24/21 2:26 PM) Temperature [96.8-100.4 DegF] 97.9 DegF (02/24/21 2:26 PM) Liters per Minute 0 L/min (02/24/21 2:26 PM) Mode of Delivery (Oxygen) Room air (02/24/21 2:26 PM) Blood pressure sites Arm, left (02/24/21 2:26 PM) Temperature Route Temporal (02/24/21 2:26 PM) Dry Weight 105.3 kg (02/24/21 2:26 PM) Weight Obtained Via Standing scale (02/24/21 2:26 PM) Dry Weight Obtained Via Standing scale (02/24/21 2:26 PM) Social History Social History Type Response Smoking Status Current every day juliano stokes entered on: 09/02/16 Sex
--- OUTSIDE RECORDS SUMMARY | 2022-12-26 22:17 | XMS_ITS | Continuity of Care Document ---
Author Name Unknown Organization [facility] Address [address] [place] [address]- Care Team Providers Care Blood Bank Order Control Clerk Name Role Phone Justice CASTILLO, Mona Primary Care Physician Encounter [facility] Date(s): 10/14/19 - 11/13/19 [facility] [address] [place] [address] Allergies, Adverse Reactions, Alerts Substance [...] mL in dorsal gluteal left. Second lot [id number] exp 11/26/2015 Medications acetaminophen 325 mg oral [...] 0 Refills, Maintenance, 08/21/19 12:48:00 EDT, Tablet, [facility], 159.4, cm, 06/27/19 14:32:00 EDT, Height, [...] tablet, 1 Refills, Maintenance, 05/10/19 14:35:00 EST, [facility], 159.4, cm, 05/09/19 11:12:00 EST, Height, 71.1, kg, 05/09/19 11:12:00 EST, Dry Weight Start Date: 05/10/19 Stop Date: 08/02/19 Status: Ordered prochlorperazine 5 mg oral tablet 1 tablet = 5 mg, By Mouth, Every 6 hours, PRN Nausea & Vomiting, may cause drowsiness, # 30 tablet, 0 Refills, Maintenance, 08/26/19 9:18:00 EDT, [facility], 159.4, cm, 06/27/19 14:32:00 EDT, Height, [...] Refills, Maintenance, 06/17/19 16:34:00 EST, deliver to [facility] on 06/26 for 06/27 visit Start [...]
--- OUTSIDE RECORDS SUMMARY | 2022-12-26 22:17 | XMS_ITS | Continuity of Care Document ---
Author Name Unknown Organization [facility] Address [address] [facility], 3r d Floor, [address] [place] [address]- Care Team Providers Care Patternmaker Helper Name Role Phone Justice CASTILLO, Mona Primary Care Physician Encounter [facility] Date(s): 11/03/22 - 12/09/22 [facility] [address] [place], 3rd Floor, [address] [place] [id number] Attending Physician: Romario Obando MD Admitting Physician: Romario Obando MD Allergies, Adverse Reactions, Alerts Substance Reaction [...] mL in dorsal gluteal left. Second lot [id number] exp 11/26/2015 Medications Albuterol 90 mcg Inhaler [...] Refills, Maintenance, 06/01/21 9:02:00 EST, Tablet, [facility], 152.4, cm, 05/21/21 18:46:00 EST, Height, [...] 1 Refills,Maintenance, 06/01/21 9:04:00 EST, Tablet, [facility], Partial fill upon patient request ifthe [...] Presence of subdermal contraceptive implant 5 Confirmed 6/12/13 Active Rh negative Confirmed Active Urge incontinence Confirmed Active in - , girl - Lilibeth 3Elevated AFP 4Surgery done for PDA 5Nexplanon inserted. Due for removal in 09/2015 Social History Social History Type Response Tobacco Other: 3/ ppd. Sex Patient Care team information Care Team Personnel Name: Jailene Harris Position: [facility] Onco RN Member Role: Primary Care Nurse Name: Mona Rendon NP Position: [facility] PCO Associate Professional Member Role: PCP Address: Address: [address] [place] [address]- Name: Blake Kidd MD Position: [facility] BUSINESS DEVELOPMENT ENGINEER MD Member Role: [employer] BUSINESS DEVELOPMENT ENGINEER Physician Address: Address: [address] [place] [address] Name: Jodi Nguyễn RN Position: [facility] Onco RN Member Role: Primary Care Nurse Name: Kadi Torre RN Position: [facility] RN Member Role: Primary Care Nurse Care Team Related Persons Name: BELEM SNYDER Address: home [address] [place] [address] Name: JAIDA SNYDER Address: home [address] [place] [address] Name: MEDARDO MEZA Address: home [address] [place] [id number]
--- OUTSIDE RECORDS SUMMARY | 2022-12-26 22:17 | XMS_ITS | Continuity of Care Document ---
Author Name Unknown Organization [facility] Address [address] [place] [address]- Care Team Providers Care Cannery Worker Name Role Phone Justice CASTILLO, Mona Primary Care Physician [phone] Encounter [facility] Date(s): 02/10/21 - 03/12/[address] [address] Attending Physician: Sylvia Aggarwal Admitting Physician: [id number] Referring Physician: Admtr, Ar8 Allergies, Adverse Reactions, [...] mL in dorsal gluteal left. Second lot [id number] exp 11/26/2015 Medications Albuterol 90 mcg Inhaler 2, puffs, Inhalation, Every 4 hours, PRN, Maintenance, 01/10/13 11:18:40 Start Date: 01/10/13 Status: Ordered dexamethasone 2 mg oral tablet See Instructions, 1 tablet By Mouth 2 times a day days 1-5 of chemotherapy, then t tablet in AM x 2days, then stop, # 50 tablet, 0 Refills, Maintenance, 03/08/21 14:38:00 EST, Tablet, [facility]/pharmacy #[id number], 160, cm, 02/24/21 14:26:00 EST, Height, 105.3,... Start Date: 03/08/21 Status: Ordered Flonase 50 mcg/inh nasal spray 2 sprays, Nares, Both, Daily in AM, # 15.8 mL, 0 Refills, Maintenance, 10/19/20 14:57:00 EDT, Maxie, [facility]/pharmacy #[id number], Partial fill upon patient request if the prescription is for a schedule II opioid drug., 2 sprays Nares, Both Daily in AM, 160, cm... Start Date: 10/19/20 Status: Ordered LORazepam 0.5 mg oral tablet 1 tablet = 0.5 mg, By Mouth, 3 times a day, PRN for anxiety, [facility] reviewed 03/08/2021, # 60 tablet, 0 Refills, Maintenance, 03/08/21 14:39:00 EST, Tablet, [facility]/pharmacy #[id number], 160, cm, 02/24/21 14:26:00 EST, Height, 105.3, kg, 02/24/21 14:26:00 EST,... Start Date: 03/08/21 Status: Ordered ondansetron 8 mg oral tablet See Instructions, take 30minutes before chemotherapy then as needed every 8 hrs for Daily 5 days while on Temodar, # 15 tablet, 5 Refills, Maintenance, 03/08/21 14:37:00 EST, [facility]/pharmacy #[id number], 160,cm, 02/24/21 14:26:00 EST, Height, 105.3, kg, 02/24... Start Date: 03/08/21 Status: Ordered prochlorperazine 5 mg oral tablet 1 tablet = 5 mg, By Mouth, Every 6 hours, PRN Nausea & Vomiting, may cause drowsiness, # 30 tablet, 0 Refills, Maintenance, 08/26/19 9:18:00 EDT, [facility], 159.4, cm, 06/27/19 14:32:00 EDT, [...] 0 Refills, Maintenance, 02/09/21 6:01:00 EDT, Tablet, [facility] #[id number], Partial fill upon patient request [...]
--- OUTSIDE RECORDS SUMMARY | 2022-12-26 22:17 | XMS_ITS | Continuity of Care Document ---
Author Name Unknown Organization [facility] Address [address] [place] [address]- Care Team Providers Care Electrical Tester Name Role Phone Justice CASTILLO, Mona Primary Care Physician [phone] Encounter [facility] Date(s): 03/05/20 - 04/24/20 [facility] [address] [place] [address]- Attending Physician: Kervin Jeffries MD Admitting Physician: Kervin Jeffries MD Referring Physician: Mona Rendon NP Allergies, Adverse Reactions, Alerts Substance Reaction Severity [...] mL in dorsal gluteal left. Second lot [id number] exp 11/26/2015 Medications acetaminophen 325 mg oral [...] 0 Refills, Maintenance, 11/27/19 16:33:00 EDT, Tablet, [facility], 162, cm, 11/26/19 16:17:00 EDT, Height, 73.7,... Start Date: 11/27/19 Status: Ordered LORazepam 0.5 mg oral tablet 1 tablet = 0.5 mg, By Mouth, 3 times a day, PRN for anxiety, # 60 tablet, 0 Refills, Maintenance, 01/21/20 8:48:00 EDT, Tablet, [facility], 163, cm, 12/06/19 12:26:00 EDT, [...] tablet, 1 Refills, Maintenance, 01/21/20 10:20:00 EDT, [facility], 163, cm, 12/06/19 12:26:00 EDT, Height, 73, kg, 12/06/19 12:26:00 EDT, Dry Weight Start Date: 01/21/20 Stop Date: 04/14/20 Status: Ordered prochlorperazine 5 mg oral tablet 1 tablet = 5 mg, By Mouth, Every 6 hours, PRN Nausea & Vomiting, may cause drowsiness, # 30 tablet, 0 Refills, Maintenance, 08/26/19 9:18:00 EDT, [facility], 159.4, cm, 06/27/19 14:32:00 EDT, [...] capsule, 5 Refills, Maintenance, 02/26/20 13:26:00 EST, [facility], 161, cm, 02/19/20 11:43:00 EST, Height, 79.4, kg, 02/19/20 11:43:00 EST, Dry Weight Start Date: 02/26/20 Stop Date: 03/27/20 Status: Ordered Zofran 8 mg oral tablet 1 tablet = 8 mg, By Mouth, Every 8 hours, PRN Nausea, take 30 min before chemotherapy, then every 8hours if needed, # 10 each, 0 Refills, Maintenance, 01/17/20 15:15:00 EDT, [facility]/pharmacy #[id number], 163,cm, 12/06/19 12:26:00 EDT, Height, 73, [...]
--- OUTSIDE RECORDS SUMMARY | 2022-12-26 22:17 | XMS_ITS | Continuity of Care Document ---
Author Name Unknown Organization [facility] Address [address] [place] [address]- Care Team Providers Care Hotel Services Sales Representative Name Role Phone Justice CASTILLO, Mona Primary Care Physician [phone] Encounter [facility] Date(s): 07/10/20 - 08/14/[address] [address]- Attending Physician: Corine Castillo MD Admitting Physician: [...] mL in dorsal gluteal left. Second lot [id number] exp 11/26/2015 Medications acetaminophen 325 mg oral [...] Refills, Maintenance, 06/01/20 13:08:00 EST, Tablet, [facility], 160, cm, 05/13/20 15:07:00 EST, Height, 87.1,... Start Date: 06/01/20 Status: Ordered LORazepam 0.5 mg oral tablet 1 tablet = 0.5 mg, By Mouth, 3 times a day, PRN for anxiety, [facility] reviewed 06/01/2020, # 60 tablet, 0 Refills, Maintenance, 06/01/20 13:00:00 EST, Tablet, [facility], 160, cm, 05/13/20 15:07:00 EST, Height, 87.1, kg, 05/13/20 15:07:00 EST,... Start Date: 06/01/20 Status: Ordered ondansetron 8 mg oral tablet 1 tablet = 8 mg, By Mouth, Daily, 30 minutes before chemotherapy, # 42 tablet, 1 Refills, Maintenance, 07/16/20 13:41:00 EDT, [facility], 160, cm, 07/15/20 10:30:00 EDT, Height, 95.9, kg, 07/15/20 10:30:00 EDT, Dry Weight Start Date: 07/16/20 Stop Date: 10/08/20 Status: Ordered prochlorperazine 5 mg oral tablet 1 tablet = 5 mg, By Mouth, Every 6 hours, PRN Nausea & Vomiting, may cause drowsiness, # 30 tablet, 0 Refills, Maintenance, 08/26/19 9:18:00 EDT, [facility], 159.4, cm, 06/27/19 14:32:00 EDT, [...] capsule, 5 Refills, Maintenance, 02/26/20 13:26:00 EST, [facility], 161, cm, 02/19/20 11:43:00 EST, Height, 79.4, kg, 02/19/20 11:43:00 EST, Dry Weight Start Date: 02/26/20 Stop Date: 03/27/20 Status: Ordered Zofran 8 mg oral tablet 1 tablet = 8 mg, By Mouth, Every 8 hours, PRN Nausea, take 30 min before chemotherapy, then every 8hours if needed, # 10 each, 0 Refills, Maintenance, 01/17/20 15:15:00 EDT, [facility]/pharmacy #[id number], 163,cm, 12/06/19 12:26:00 EDT, Height, 73, [...]
--- OUTSIDE RECORDS SUMMARY | 2022-12-26 22:17 | XMS_ITS | Continuity of Care Document ---
Author Name Unknown Organization [facility] Address [address] [place] [address]- Care Team Providers Care Drop Wirer Name Role Phone Justice CASTILLO, Mona Primary Care Physician [phone] Encounter [facility] Date(s): 10/07/19 - 10/08/[address] [address]- [facility] [phone] Discharge Disposition: A-D/C Home Attending Physician: Pal Weaver MD Admitting Physician: Pal Weaver MD Referring Physician: Mona Rendon NP Allergies, [...] mL in dorsal gluteal left. Second lot [id number] exp 11/26/2015 Medications acetaminophen 325 mg oral [...] 1 Refills, Maintenance, 05/10/19 14:35:00 EST, [facility], 159.4, cm, 05/09/19 11:12:00 EST, Height, 71.1, kg, 05/09/19 11:12:00 EST, Dry Weight Start Date: 05/10/19 Stop Date: 08/02/19 Status: Ordered prochlorperazine 5 mg oral tablet 1 tablet = 5 mg, By Mouth, Every 6 hours, PRN Nausea & Vomiting, may cause drowsiness, # 30 tablet, 0 Refills, Maintenance, 08/26/19 9:18:00 EDT, [facility], 159.4, cm, 06/27/19 14:32:00 EDT, [...] Refills, Maintenance, 06/17/19 16:34:00 EST, deliver to [facility] on 06/26 for 06/27 visit Start [...] oldest [Reference Range]: 1 2 3 Height 161 cm (10/07/19 8:23 PM) Weight 70.5 kg (10/07/19 8:23 PM) Oxygen Saturation [94-100 %] 99 % (10/08/19 2:04 AM) 99 % (10/07/19 10:25 PM) 99 % (10/07/19 8:23 PM) Pulse Rate [55-90 bpm] 69 bpm (10/08/19 2:04 AM) 67 bpm (10/07/19 10:25 PM) 66 bpm (10/07/19 8:23 PM) Blood Pressure [90-138/55-84 mm Hg] 106/55mm Hg (10/08/19 2:04 AM) 107/73mm Hg (10/07/19 10:25 PM) 105/70mm Hg (10/07/19 8:23 PM) Respiratory Rate [16-30 br/min] 18 br/min (10/08/19 2:04 AM) 18 br/min (10/07/19 10:25 PM) 18 br/min (10/07/19 8:23 PM) Temperature [96.8-100.4 DegF] 97.2 DegF (10/08/19 2:04 AM) 97.2 DegF (10/07/19 10:25 PM) 98.4 DegF (10/07/19 8:23 PM) Mode of Delivery (Oxygen) Room air (10/08/19 2:04 AM) Room air (10/07/19 10:25 PM) Room air (10/07/19 8:23 PM) Blood pressure sites Arm, left (10/08/19 2:04 AM) Arm, left (10/07/19 10:25 PM) Arm, right (10/07/19 8:23 PM) Temperature Route Oral (10/08/19 2:04 AM) Oral (10/07/19 10:25 PM) Oral (10/07/19 8:23 PM) Dry Weight 70.5 kg (10/07/19 8:23 PM) Weight Obtained Via Patient/family state d (10/07/19 8:23 PM) Social History Social History Type Response Smoking Status Current every day juliano stokes entered on: 09/02/16 Sex
--- OUTSIDE RECORDS SUMMARY | 2022-12-26 22:17 | XMS_ITS | Continuity of Care Document ---
Author Name Unknown Organization [facility] Address Unknown Care Team Providers Care Oncology Radiation Physician Name Role Phone Justice CASTILLO, Mona Primary Care Physician En[place] [facility] [place] Date(s): 11/25/20 - 12/25/20 [facility] Attending Physician: Sylvia Aggarwal Admitting Physician: Sylvia Aggarwal Referring Physician: Sylvia Aggarwal Allergies, Adverse Reactions, Alerts Substance Reaction Severity [...] mL in dorsal gluteal left. Second lot [id number] exp 11/26/2015 Medications Albuterol 90 mcg Inhaler 2, puffs, Inhalation, Every 4 hours, PRN, Maintenance, 01/10/13 11:18:40 Start Date: 01/10/13 Status: Ordered dexamethasone 2 mg oral tablet See Instructions, 1 tablet By Mouth 2 times a day days 1-5 of chemotherapy, then t tablet in AM x 2days, then stop, # 50 tablet, 0 Refills, Maintenance, 06/01/20 13:08:00 EST, Tablet, [facility], 160, cm, 05/13/20 15:07:00 EST, Height, 87.1,... Start Date: 06/01/20 Status: Ordered Flonase 50 mcg/inh nasal spray 2 sprays, Nares, Both, Daily in AM, # 15.8 mL, 0 Refills, Maintenance, 10/19/20 14:57:00 EDT, [place], [facility]/pharmacy #[id number], Partial fill upon patient request [...] Refills, Maintenance, 11/12/20 8:58:00 EDT, Tablet, [facility]/pharmacy #[id number], 160, cm, 10/19/20 15:19:00 EDT, Height, 99.8, kg, 10/19/20 15:19:00 EDT, D... Start Date: 11/12/20 Status: Ordered ondansetron 8 mg oral tablet See Instructions, take 30minutes before chemotherapy then as needed every 8 hrs for Daily 5 days while on Temodar, # 15 tablet, 5 Refills, Maintenance, 12/22/20 8:53:00 EDT, [facility], 161, cm, 12/02/20 17:19:00 EDT, Height, 101, kg, 12/02/20... Start Date: 12/22/20 Status: Ordered prochlorperazine 5 mg oral tablet 1 tablet = 5 mg, By Mouth, Every 6 hours, PRN Nausea & Vomiting, may cause drowsiness, # 30 tablet, 0 Refills, Maintenance, 08/26/19 9:18:00 EDT, [facility], 159.4, cm, 06/27/19 14:32:00 EDT, [...]
--- OUTSIDE RECORDS SUMMARY | 2022-12-26 22:17 | XMS_ITS | Continuity of Care Document ---
Author Name Unknown Organization [facility] Address [address] [place] [address]- Care Team Providers Care Dividend Deposit Voucher Clerk Name Role Phone Justice CASTILLO, Mona Primary Care Physician [phone] Encounter [facility] [place] Date(s): 05/14/21 - 05/19/[address] [address]- Discharge Disposition: Transfer to [facility] Facility Attending Physician: Jodi Gil MD Admitting Physician: Ian ROMERO, Sina Chowdhury Referring Physician: Not on Staff, Referring MD [...] mL in dorsal gluteal left. Second lot [id number] exp 11/26/2015 Medications Albuterol 90 mcg Inhaler 2, puffs, Inhalation, Every 4 hours, PRN, Maintenance, 01/10/13 11:18:40 EDT Start Date: 01/10/13 Status: Ordered temozolomide 100 mg oral capsule 4 capsule = 400 mg, By Mouth, Daily, 0 Refills, Maintenance, 05/14/21 20:32:00 EST, Partial fill upon patient request if the prescription is for a schedule II opioid drug. Start Date: 05/14/21 Status: Ordered Problem List Condition Effective Dates [...] oldest [Reference Range]: 1 2 3 Height 165 cm (05/19/21 8:14 PM) 165 cm (05/19/21 5:37 PM) 165 cm (05/19/21 12:55 PM) Weight 105.0 kg (05/14/21 6:07 PM) 105 kg (05/14/21 6:07 PM) 107.0 kg (05/14/21 11:43 AM) Oxygen Saturation [94-100 %] 100 % (05/19/21 8:14 PM) 99 % (05/19/21 5:37 PM) 99 % (05/19/21 12:55 PM) Pulse Rate [55-90 bpm] 70 bpm (05/19/21 8:14 PM) 66 bpm (05/19/21 5:37 PM) 64 bpm (05/19/21 12:55 PM) Body Mass Index [18.5-24.99] 38.57 *>HHI* (05/14/21 6:07 PM) 38.57 *>HHI* (05/14/21 6:07 PM) Blood Pressure [90-138/55-84 mm Hg] 120/77mm Hg (05/19/21 8:14 PM) 128/76mm Hg (05/19/21 5:37 PM) 114/70mm Hg (05/19/21 12:55 PM) Respiratory Rate [16-30 br/min] 20 br/min (05/19/21 8:14 PM) 18 br/min (05/19/21 5:37 PM) 18 br/min (05/19/21 12:55 PM) Temperature [96.8-100.4 DegF] 97.7 DegF (05/19/21 8:14 PM) 98.6 DegF (05/19/21 5:37 PM) 98 DegF (05/19/21 12:55 PM) Liters per Minute 0 L/min (05/19/21 4:30 AM) 0 L/min (05/18/21 11:56 PM) 0 L/min (05/18/21 8:00 PM) Mode of Delivery (Oxygen) Room air (05/19/21 8:14 PM) Room air (05/19/21 5:37 PM) Room air (05/19/21 12:55 PM) Blood pressure sites Arm, right (05/19/21 8:14 PM) Arm, left (05/19/21 5:37 PM) Arm, right (05/19/21 12:55 PM) Temperature Route Oral (05/19/21 8:14 PM) Oral (05/19/21 5:37 PM) Oral (05/19/21 12:55 PM) Dry Weight 107 kg (05/14/21 8:05 PM) 107.0 kg (05/14/21 11:43 AM) Weight Obtained Via Bed scale (05/14/21 6:07 PM) Social History Social History Type Response Tobacco Other: 3/4 ppd. Sex
--- OUTSIDE RECORDS SUMMARY | 2022-12-26 22:17 | XMS_ITS | Continuity of Care Document ---
Author Name Unknown Organization [facility] Address [address] [place] [address]- Care Team Providers Care Bonded Strand Operator Name Role Phone Justice CASTILLO, Mona Primary Care Physician Encounter [facility] [place] Date(s): 03/22/19 - 10/20/19 [facility] [address] [place] [address]- [facility] Discharge Disposition: A-D/C Home Attending Physician: Anna ROMERO, Corine Hernandez Admitting Physician: Winston ROMERO, Ehsan Chowdhury Referring Physician: Mona Rendon NP Allergies, Adverse [...] mL in dorsal gluteal left. Second lot [id number] exp 11/26/2015 Medications acetaminophen 325 mg oral tablet 650 mg, 2, tablet, By Mouth, 4 times a day, PRN, Refills 0, Maintenance, Pain , Moderate, 01/14/19 13:38:09 EDT Start Date: 9/30/19 Status: Ordered Albuterol 90 mcg Inhaler 2, [...] tablet, 1 Refills, Maintenance, 05/10/19 14:35:00 EST, [facility], 159.4, cm, 05/09/19 11:12:00 EST, Height, 71.1, kg, 05/09/19 11:12:00 EST, Dry Weight Start Date: 05/10/19 Stop Date: 08/02/19 Status: Ordered prochlorperazine 5 mg oral tablet 1 tablet = 5 mg, By Mouth, Every 6 hours, PRN Nausea & Vomiting, may cause drowsiness, # 30 tablet, 0 Refills, Maintenance, 08/26/19 9:18:00 EDT, [facility], 159.4, cm, 06/27/19 14:32:00 EDT, [...] capsule, 4 Refills, Maintenance, 07/26/19 15:55:00 EDT[facility], 159.4, cm, 06/27/19 14:32:00 EDT, Height, 70.4, kg, 06/10/19 11:09:00 EST, Dry Weight Start Date: 07/26/19 Status: Ordered Zofran 8 mg oral tablet 1 tablet = 8 mg, By Mouth, 3 times a day, take 30 min before chemotherapy, then every 8 hours if needed, # 15 tablet, 5 Refills, Maintenance, 06/17/19 16:34:00 EST, deliver [place] [facility] [place] [facility] on 06/26 for 06/27 visit Start [...] oldest [Reference Range]: 1 2 3 Height 159.4 cm (05/09/19 11:12 AM) 159.4 cm (04/22/19 10:45 AM) 162.3 cm (03/26/19 8:02 AM) Weight 71.1 kg (05/09/19 11:12 AM) 70.3 kg (04/22/19 10:45 AM) 71.2 kg (03/26/19 8:02 AM) Pulse Rate [55-90 bpm] 71 bpm (05/09/19 11:12 AM) 65 bpm (04/22/19 10:45 AM) 72 bpm (03/26/19 8:02 AM) Body Mass Index [18.5-24.99] 27.98 *H* (05/09/19 11:12 AM) 27.67 *H* (04/22/19 10:45 AM) 27.03 *H* (03/26/19 8:02 AM) Blood Pressure [90-138/55-84 mm Hg] 125/69mm Hg (05/09/19 11:12 AM) 115/54mm Hg (04/22/19 10:45 AM) 110/58mm Hg (03/26/19 8:02 AM) Temperature [96.8-100.4 DegF] 98.7 DegF (05/09/19 11:12 AM) 97.8 DegF (04/22/19 10:45 AM) 98.9 DegF (03/26/19 8:02 AM) Blood pressure sites Arm, left (05/09/19 11:12 AM) Arm, right (04/22/19 10:45 AM) Arm, right (03/26/19 8:02 AM) Temperature Route Temporal (05/09/19 11:12 AM) Tympanic (04/22/19 10:45 AM) Tympanic (03/26/19 8:02 AM) Dry Weight 71.1 kg (05/09/19 11:12 AM) 70.3 kg (04/22/19 10:45 AM) 71.2 kg (03/26/19 8:02 AM) Weight Obtained Via Standing scale (05/09/19 11:12 AM) Standing scale (04/22/19 10:45 AM) Standing scale (03/26/19 8:02 AM) Dry Weight Obtained Via Standing scale (05/09/19 11:12 AM) Standing scale (04/22/19 10:45 AM) Standing scale (03/26/19 8:02 AM) Social History Social History Type Response Smoking Status Current every day juliano stokes entered on: 09/02/16 Sex
--- OUTSIDE RECORDS SUMMARY | 2022-12-26 22:17 | XMS_ITS | Continuity of Care Document ---
Author Name Unknown Organization [facility] Address [address] [place] [address]- Care Team Providers Care Cmm Technician Name Role Phone Justice CASTILLO, Mona Primary Care Physician [phone] [place] [facility] [place]/10/22 - 02/09/[address] [address] Attending Physician: Admtr, Ar8 Admitting [...] mL in dorsal gluteal left. Second lot [id number] exp 11/26/2015 Medications Albuterol 90 mcg Inhaler [...] Refills, Maintenance, 06/01/21 9:02:00 EST, Tablet, [facility], 152.4, cm, 05/21/21 18:46:00 EST, Height, [...] 1 Refills,Maintenance, 06/01/21 9:04:00 EST, Tablet, [facility], Partial fill upon patient request ifthe [...] 3/4 ppd. Sex Patient Care team information Personnel Name: Mona Rendon NP Address: Address: [address] [place] [address]
--- OUTSIDE RECORDS SUMMARY | 2022-12-26 22:17 | XMS_ITS | Continuity of Care Document ---
Author Name Unknown Organization [facility] Address [address] [place] [address]- Care Team Providers Care Metallurgical Or Materials Technician Name Role Phone Justice CASTILLO, Mona Primary Care Physician Encounter [facility] [place] Date(s): 10/04/21 - 11/03/[address] [address]- Attending Physician: AdmSylvia puentes Admitting Physician: AdmtrSylvia Referring Physician: Admtr, Ar8 Allergies, Adverse Reactions, [...] mL in dorsal gluteal left. Second lot [id number] exp 11/26/2015 Medications Albuterol 90 mcg Inhaler [...] Active Partial seizure disorder(Confirmed) Active Migraine(Confirmed) Active Obese class II(Confirmed) Active Open heart surgery age 5 wks [...]
--- OUTSIDE RECORDS SUMMARY | 2022-12-26 22:17 | XMS_ITS | Continuity of Care Document ---
Author Name Unknown Organization [facility] Address [address] [place] [address]- Care Team Providers Care Paper Latcher Name Role Phone Justice CASTILLO, Mona Primary Care Physician [place] [facility] [place] 07/13/22 - 07/14/[address] [address]- Encounter Diagnosis Recurrent headache(Final) - 07/13/22 Discharge Disposition: A-D/C Home Attending Physician: Prince Perez MD Admitting Physician: Prince Perez MD Referring Physician: Not on Staff, Referring [...] mL in dorsal gluteal left. Second lot [id number] exp 11/26/2015 Medications Albuterol 90 mcg Inhaler [...] Refills, Maintenance, 06/01/21 9:02:00 EST, Tablet, [facility], 152.4, cm, 05/21/21 18:46:00 EST, Height, [...] 1 Refills,Maintenance, 06/01/21 9:04:00 EST, Tablet, [facility], Partial fill upon patient request ifthe [...] 5Nexplanon inserted. Due for removal in 09/2015 Results Radiology Reports * Exam Date Time Procedure Performing Provider Status 07/13/22 11:[address] Head/Brain W/O Contrast Iveth Whipple; Auth (Verified) Notes: (CT Head/Brain W/O Contrast) Reason For Exam: History of glioma status postresection and migraine headaches now with moderate, anterior headache;Headache(s) RESULT: CT Head/Brain W/O Contrast CT Head/Brain W/O Contrast INDICATION: Hx of Present Illness: sudden headache, blurry vision, and unequeal pupils noted this night 1hr ago when pt went to the bathroom. HX of brain surgery 3 years ago (Jan 2019) TECHNIQUE: Noncontrast head CT using axial technique and reconstructed in axial and coronal planes.Iterative reconstruction techniques are used to optimize dose and image quality. CTDIvol Head: 48.85 mGy, DLP Head: 836 mGy*cm. COMPARISON: 12/21/2021 FINDINGS: M1A1 Tank Crewman view findings, lines and tubes: None. BRAIN AND EXTRA-AXIAL SPACES: No parenchymal hemorrhage, midline shift, or mass effect. Vences-white matter differentiation is wellpreserved. No acute infarct. Negative insular ribbon and hyperdense vessel signs. Ventricles, sulci, and basilar cisterns are normal. Moderate low-density white matter changes. No subarachnoid hemorrhage. No subdural or epidural collection. CALVARIUM, SKULL BASE, AND SOFT TISSUES: Unchanged craniotomy. The paranasal sinuses and mastoid air cells are clear. Visualized orbits and globes are intact. The extracranial soft tissues are unremarkable. IMPRESSION: No acute intracranial pathology. WSN: [id number] Ordering Physician: Prince Perez Dictated By: Akash Cotter MD Dictated Date/Time: 07/14/22 7:45 am Reviewed By: Aksah Cotter MD Signed By: Akash Cotter MD Signed Date/Time: 07/14/22 7:45 am Transcribed By: ALFREDO Transcribed Date/Time: 07/14/22 7:35 am Vital Signs Most recent to oldest [Reference Range]: 1 2 Height 161 cm (07/13/22 10:55 PM) Weight 89 kg (07/13/22 10:55 PM) Oxygen Saturation [94-100 %] 98 % (07/14/22 12:38 AM) 99 % (07/13/22 10:55 PM) Pulse Rate [55-90 bpm] 80 bpm (07/14/22 12:38 AM) 84 bpm (07/13/22 10:55 PM) Blood Pressure [90-138/55-84 mm Hg] 118/ 77mm Hg (07/14/22 12:38 AM) 116/74mm Hg (07/13/22 10:55 PM) Respiratory Rate [16-30 br/min] 19 br/mi n (07/14/22 12:38 AM) 18 br/min (07/13/22 10:55 PM) Temperature [96.8-100.4 DegF] 97.5 DegF (07/13/22 10:55 PM) Mode of Delivery (Oxygen) Room air (07/14/22 12:38 AM) Room air (07/13/22 10:55 PM) Blood pressure sites Arm, left (07/14/22 12:38 AM) Arm, left (07/13/22 10:55 PM) Temperature Route Oral (07/13/22 10:55 PM) Dry Weight 89 kg (07/13/22 10:55 PM) Weight Obtained Via Patient/family state d (07/13/22 10:55 PM) Dry Weight Obtained Via Patient/family s tated (07/13/22 10:55 PM) Social History Social History Type Response Tobacco Other: 3/4 ppd. Sex Note * Chris ROMERO, Prince: PERFORM Event Display: Patient Education Leaflets Authored Date: [id number] Headache, Unspecified ?? [id number] Headache, Unspecified A number of things can cause headaches. The cause of your headache isn???t clear. But it doesn???t seem to be a sign of any serious illness. Headache affects almost everyone at some time. It's the most common reason people miss days from work or school. A physical and nervous system exam can help rule out any serious causes of headache. Sometimes you may need more testing. This could include blood work or imaging tests of the head, such as a CAT scan or MRI. You could have a tension headache or a migraine headache. Stress can cause a tension headache. This can happen if you tense the muscles of your shoulders, neck, and scalp without knowing it. If this stress lasts long enough, you may develop a tension headache. It's not clear why migraines occur, but certain things called triggers can raise the risk of havinga migraine attack. Migraine triggers may include emotional stress or depression, or by hormone changes during the menstrual cycle. Other triggers include control pills and other medicines, alcohol or caffeine, foods with tyramine, such as aged cheese or wine, eyestrain, weather changes, missed meals, and lack of sleep or oversleeping. Other causes of headache include: ??? Viral illness with high fever ??? Head injury with concussion ??? Sinus, ear, or throat infection ??? Dental pain and jaw joint (TMJ) pain More serious but less common causes of headache include stroke, brain hemorrhage, brain tumor, meningitis, and encephalitis. Home care Follow these tips when taking care of yourself at home: ??? Don???t drive yourself home if you weregiven pain medicine for your headache. Instead, have someone else drive you home. Try to sleep whenyou get home. You should feel much better when you wake up. ??? Apply heat to the back of your neckto ease a neck muscle spasm. Take care of a migraine headache by putting an ice pack on your forehead or at the base of your skull. ??? If you have nausea or vomiting, eat a light diet until your headache eases. ??? If you have a migraine headache, use sunglasses when in the daylight or around bright indoor lighting until your symptoms get better. Bright glaring light can make this type of headache worse. ?? Follow-up care Follow up with your healthcare provider, or as advised. Talk with your provider if you have frequent headaches. They can help figure out a treatment plan. By knowing the earliest signs of headache, and starting treatment right away, you may be able to stop the pain yourself. ?? When to get medical advice Call your healthcare provider right away??if any of the following occur: ??? Your head pain suddenly gets worse after sexual intercourse or strenuous activity ??? Your head pain doesn???t get better within 24 hours ??? You have new symptoms ??? You aren???t able to keep liquids down (repeated vomiting) ??? Fever of 100.4??F (38??C) or higher, or as directed by your healthcare provider ??? Stiff neck ??? Extreme drowsiness, confusion, or fainting ??? Dizziness or dizziness with spinning sensation (vertigo) ??? Weakness in an arm or leg or one side of your face ??? You have trouble talking or seeing ?? Last Reviewed Date: 2022 ?? [id number] [employer]. All rights reserved. This information is not intended as a substitute for professional medical care. Always follow your healthcare professional's instructions. ?? CT Head WO contrast * BHSPowerscribe , CIS S: TRANSCAkash Sainz MD: VERIFY Event Display: Result: Authored Date: [id number] CT Head/Brain W/O Contrast INDICATION: Hx of Present Illness: sudden headache, blurry vision, and unequeal pupils noted this night 1hr ago when pt went to the bathroom. HX of brain surgery 3 years ago (Jan 2019) TECHNIQUE: Noncontrast head CT using axial technique and reconstructed in axial and coronal planes.Iterative reconstruction techniques are used to optimize dose and image quality. CTDIvol Head: 48.85 mGy, DLP Head: 836 mGy*cm. COMPARISON: 12/21/2021 FINDINGS: M1A1 Tank Crewman view findings, lines and tubes: None. BRAIN AND EXTRA-AXIAL SPACES: No parenchymal hemorrhage, midline shift, or mass effect. Vences-white matter differentiation is wellpreserved. No acute infarct. Negative insular ribbon and hyperdense vessel signs. Ventricles, sulci, and basilar cisterns are normal. Moderate low-density white matter changes. No subarachnoid hemorrhage. No subdural or epidural collection. CALVARIUM, SKULL BASE, AND SOFT TISSUES: Unchanged craniotomy. The paranasal sinuses and mastoid air cells are clear. Visualized orbits and globes are intact. The extracranial soft tissues are unremarkable. IMPRESSION: No acute intracranial pathology. WSN: [id number] Ordering Physician: Prince Perez Dictated By: Akash Cotter MD Dictated Date/Time: 07/14/22 7:45 am Reviewed By: Akash Cotter MD Signed By: Akash Cotter MD Signed Date/Time: 07/14/22 7:45 am Transcribed By: CSAsif Transcribed Date/Time: 07/14/22 7:35 am Patient Care team information Care Team Personnel Name: Jailene Harris Position: [facility] Onco RN Member Role: Primary Care Nurse Name: Mona Rendon NP Position: [facility] PCO Associate Professional Member Role: PCP Address: Address: [address] [place] [address] Name: Blake Kidd MD Position: [facility] HEALTHCARE ADMINISTRATOR MD Member Role: [facility] HEALTHCARE ADMINISTRATOR Physician Address: Address: [address] [place] [address]- Name: Jodi Ngyuễn RN Position: [facility] RN Member Role: Primary Care Nurse Name: Enedelia Chamberlain RN Position: [facility] RN Member Role: Primary Care Nurse Name: Kadi Torre RN Position: [facility] RN Member Role: Primary Care Nurse Name: Hemalatha Wellington RN Position: [facility] ED RN W/OE and Tasks Member Role: Patient Care Provider Name: Prince Perez MD Position: [facility] ED Medicine MD Member Role: ED Attending Physician Address: Address: [address] [place] [address]- Care Team Related Persons Name: BELEM SNYDER Address: home [address] [place] [address] Name: JAIDA SNYDER Address: home [address] [place] [address] Name: MEDARDO MEZA Address: home [address] [place] [address]
--- OUTSIDE RECORDS SUMMARY | 2022-12-26 22:17 | XMS_ITS | Continuity of Care Document ---
Author Name Unknown Organization [facility] Address [address] [place] [address]- Care Team Providers Care Counseling Psychologist Name Role Phone Justice CASTILLO, Mona Primary Care Physician Encounter [facility] [place] Date(s): 10/07/19 - 10/07/[address] [address]- [facility] [phone] Discharge Disposition: A-D/C Walkout Attending Physician: Nicho Dunaway MD Admitting Physician: Nicho Dunaway MD Referring Physician: Not on Staff, Referring [...] mL in dorsal gluteal left. Second lot [id number] exp 11/26/2015 Medications acetaminophen 325 mg oral [...] tablet, 1 Refills, Maintenance, 05/10/19 14:35:00 EST, [facility], 159.4, cm, 05/09/19 11:12:00 EST, [...] Refills, Maintenance, 06/17/19 16:34:00 EST, deliver to [facility] [place] on 06/26 for 06/27 visit Start [...] oldest [Reference Range]: 1 Height 160 cm (10/07/19 12:09 PM) Weight 70.5 kg (10/07/19 12:09 PM) Oxygen Saturation [94-100 %] 97 % (10/07/19 12:09 PM) Pulse Rate [55-90 bpm] 69 bpm (10/07/19 12:09 PM) Blood Pressure [90-138/55-84 mm Hg] 106/ 68mm Hg (10/07/19 12:09 PM) Respiratory Rate [16-30 br/min] 20 br/mi n (10/07/19 12:09 PM) Temperature [96.8-100.4 DegF] 97.8 DegF (10/07/19 12:09 PM) Mode of Delivery (Oxygen) Room air (10/07/19 12:09 PM) Temperature Route Oral (10/07/19 12:09 PM) Dry Weight 70.5 kg (10/07/19 12:09 PM) Social History Social History Type Response Smoking Status Current every day juliano stokes entered on: 09/02/16 Sex
--- OUTSIDE RECORDS SUMMARY | 2022-12-26 22:17 | XMS_ITS | Continuity of Care Document ---
Author Name Unknown Organization [facility] Address [address] [place] [address]- Care Team Providers Care Wet Machine Tender Name Role Phone Justice CASTILLO, Mona Primary Care Physician [place] [facility] [place] - 08/25/[address] [address] Attending Physician: Admtr, Ar8 Admitting Physician: Admtr, [...] mL in dorsal gluteal left. Second lot [id number] exp 11/26/2015 Medications Albuterol 90 mcg Inhaler [...] Refills, Maintenance, 06/01/21 9:02:00 EST, Tablet, [facility], 152.4, cm, 05/21/21 18:46:00 EST, Height, [...] 1 Refills,Maintenance, 06/01/21 9:04:00 EST, Tablet, [facility], Partial fill upon patient request ifthe [...] Care Team Personnel Name: Jailene Harris Position: [facility] Onco RN Member Role: Primary Care Nurse Name: Mona Rendon NP Position: [facility] PCO Associate Professional Member Role: PCP Address: Address: [address] [place] [address] Name: Blake Kidd MD Position: [facility] C.O.D. AUDIT CLERK MD Member Role: [employer] C.O.D. AUDIT CLERK Physician Address: Address: [address] [place] [address] Name: Jodi Nguyễn RN Position: [facility] RN Member Role: Primary Care Nurse Name: Kadi Torre RN Position: [facility] RN Member Role: Primary Care Nurse Care Team Related Persons Name: BELEM SNYDER Address: home [address] [place] [id number] Name: JAIDA SNYDER Address: home [address] [place] [address] Name: MEDARDO MEZA Address: home [address] [place] [address]
--- OUTSIDE RECORDS SUMMARY | 2022-12-26 22:17 | XMS_ITS | Continuity of Care Document ---
Author Name Unknown Organization [facility] Address [address] [place] [address]- Care Team Providers Care Bioengineer Name Role Phone Justice CASTILLO, Mona Primary Care Physician [phone] [facility] Date(s): 09/21/20 - 01/18/[address] [address]- Encounter Diagnosis Malignant neoplasm of brain, unspecified(Final) [...] mL in dorsal gluteal left. Second lot [id number] exp 11/26/2015 Medications Albuterol 90 mcg Inhaler 2, puffs, Inhalation, Every 4 hours, PRN, Maintenance, 01/10/13 11:18:40 Start Date: 01/10/13 Status: Ordered dexamethasone 2 mg oral tablet See Instructions, 1 tablet By Mouth 2 times a day days 1-5 of chemotherapy, then t tablet in AM x 2days, then stop, # 50 tablet, 0 Refills, Maintenance, 06/01/20 13:08:00 EST, Tablet, [facility], 160, cm, 05/13/20 15:07:00 EST, Height, 87.1,... Start Date: 06/01/20 Status: Ordered Flonase 50 mcg/inh nasal spray 2 sprays, Nares, Both, Daily in AM, # 15.8 mL, 0 Refills, Maintenance, 10/19/20 14:57:00 EDT, [place], [facility]/pharmacy #[id number], Partial fill upon patient request if the prescription is for a schedule II opioid drug., 2 sprays Nares, Both Daily in AM, 160, cm... Start Date: 10/19/20 Status: Ordered LORazepam 0.5 mg oral tablet 1 tablet = 0.5 mg, By Mouth, 3 times a day, PRN for anxiety, [facility] reviewed 11/12/2020, # 60 tablet, 0 Refills, Maintenance, 11/12/20 8:58:00 EDT, Tablet, [facility]/pharmacy #[id number], 160, cm, 10/19/20 15:19:00 EDT, Height, 99.8, kg, 10/19/20 15:19:00 EDT, D... Start Date: 11/12/20 Status: Ordered ondansetron 8 mg oral tablet See Instructions, take 30minutes before chemotherapy then as needed every 8 hrs for Daily 5 days while on Temodar, # 15 tablet, 5 Refills, Maintenance, 12/22/20 8:53:00 EDT, [facility], 161, cm, 12/02/20 17:19:00 EDT, Height, 101, kg, 12/02/20... Start Date: 12/22/20 Status: Ordered prochlorperazine 5 mg oral tablet 1 tablet = 5 mg, By Mouth, Every 6 hours, PRN Nausea & Vomiting, may cause drowsiness, # 30 tablet, 0 Refills, Maintenance, 08/26/19 9:18:00 EDT, [facility], 159.4, cm, 06/27/19 14:32:00 EDT, [...] 0 Refills, Maintenance, 01/17/20 15:15:00 EDT, [id number], 163,cm, 12/06/19 12:26:00 EDT, Height, 73, kg, [...] [Reference Range]: 1 2 Height 160 cm (11/18/20 1: PM) 160 cm (10/06/20 10: AM) Weight 100.8 kg (11/18/20: PM) 100 kg (10/06/20 10:27 AM) Oxygen Saturation [94-100 %] 98 % (11/18/20: PM) 99 % (10/06/20 10: AM) Pulse Rate [55-90 bpm] 81 bpm (11/18/20: PM) 65 bpm (10/06/20 10: AM) Body Mass Index [18.5-24.99] 39.38 *>HHI* (11/18/20: PM) 39.06 *>HHI* (10/06/20 10: AM) Blood Pressure [90-138/55-84 mm Hg] 103/ 64mm Hg (11/18/20: PM) 110/65mm Hg (10/06/20 10: AM) Respiratory Rate [16-30 br/min] 18 br/mi n (11/18/20: PM) 18 br/min (10/06/20 10:27 AM) Temperature [96.8-100.4 DegF] 97.8 DegF (11/18/20: PM) 97.2 DegF (10/06/20 10:27 AM) Liters per Minute 0 L/min (11/18/20: PM) 0 L/min (10/06/20 10:27 AM) Mode of Delivery (Oxygen) Room air (11/18/20 1: PM) Room air (10/06/20 10:27 AM) Blood pressure sites Arm, left (11/18/20: PM) Arm, left (10/06/20 10:27 AM) Temperature Route Temporal (11/18/20: PM) Temporal (10/06/20 10:27 AM) Dry Weight 100.8 kg (11/18/20 1:21 PM) 100 kg (10/06/20 10:27 AM) Weight Obtained Via Standing scale (11/18/20: PM) Standing scale (10/06/20 10:27 AM) Dry Weight Obtained Via Standing scale (11/18/20 1:21 PM) Standing scale (10/06/20 10:27 AM) Social History Social History Type Response Smoking Status Current every day juliano stokes entered on: 09/02/16 Sex
--- OUTSIDE RECORDS SUMMARY | 2022-12-26 22:17 | XMS_ITS | Continuity of Care Document ---
Author Name Unknown Organization [facility] Address [address] [place] [address]- Care Team Providers Care Global Sales Manager Name Role Phone Justice CASTILLO, Mona Primary Care Physician Encounter [facility] Date(s): 01/15/20 - 01/15/[address] [address]- [facility] Encounter Diagnosis Pre-syncope(Final) - 01/15/20 Discharge Disposition: A-D/C Home Attending Physician: Shimon Johnston DO Admitting Physician: Shimon Johnston DO Referring Physician: Not on Staff, Referring [...] mL in dorsal gluteal left. Second lot [id number] exp 11/26/2015 Medications acetaminophen 325 mg oral [...] 0 Refills, Maintenance, 11/27/19 16:33:00 EDT, Tablet, [facility], 162, cm, 11/26/19 16:17:00 EDT, [...] tablet, 1 Refills, Maintenance, 05/10/19 14:35:00 EST, [facility], 159.4, cm, 05/09/19 11:12:00 EST, Height, 71.1, kg, 05/09/19 11:12:00 EST, Dry Weight Start Date: 05/10/19 Stop Date: 08/02/19 Status: Ordered prochlorperazine 5 mg oral tablet 1 tablet = 5 mg, By Mouth, Every 6 hours, PRN Nausea & Vomiting, may cause drowsiness, # 30 tablet, 0 Refills, Maintenance, 08/26/19 9:18:00 EDT, [facility], 159.4, cm, 06/27/19 14:32:00 EDT, [...] Dry Weight Start Date: 11/27/19 Status: Ordered Zofran 8 mg oral tablet 1 tablet = 8 mg, By Mouth, 3 times a day, take 30 min before chemotherapy, then every 8 hours if needed, # 15 tablet, 5 Refills, Maintenance, 06/17/19 16:34:00 EST, deliver to [facility] on 06/26 for 06/27 visit Start [...] recent to oldest [Reference Range]: 1 2 Oxygen Saturation [94-100 %] 99 % (01/15/20 11:19 PM) 100 % (01/15/20 6:49 PM) Pulse Rate [55-90 bpm] 57 bpm (01/15/20 11:19 PM) 66 bpm (01/15/20 6:49 PM) Blood Pressure [90-138/55-84 mm Hg] 112/ 57mm Hg (01/15/20 11:19 PM) 102/71mm Hg (01/15/20 6:49 PM) Respiratory Rate [16-30 br/min] 16 br/mi n (01/15/20 11:19 PM) 16 br/min (01/15/20 6:49 PM) Temperature [96.8-100.4 DegF] 98 DegF (01/15/20 11:19 PM) 98 DegF (01/15/20 6:49 PM) Mode of Delivery (Oxygen) Room air (01/15/20 11:19 PM) Room air (01/15/20 6:49 PM) Blood pressure sites Arm, left (01/15/20 11:19 PM) Arm, left (01/15/20 6:49 PM) Temperature Route Oral (01/15/20 11:19 PM) Oral (01/15/20 6:49 PM) Social History Social History Type Response Smoking Status Current every day juliano stokes entered on: 09/02/16 Sex
--- OUTSIDE RECORDS SUMMARY | 2022-12-26 22:17 | XMS_ITS | Continuity of Care Document ---
Author Name Unknown Organization [facility] Address [address] [place] [address]- Care Team Providers Care Streetcar Starter Name Role Phone Justice CASTILLO, Mona Primary Care Physician Encounter [facility] Date(s): 07/26/22 - 10/11/[address] [address]- Encounter Diagnosis Personal history of malignant neoplasm of brain(Final) - Discharge Disposition: A-D/C Home Attending Physician: Pierce Nichols MD Admitting Physician: Pierce Nichols MD Referring Physician: [...] mL in dorsal gluteal left. Second lot [id number] exp 11/26/2015 Medications Albuterol 90 mcg Inhaler [...] 1 Refills,Maintenance, 06/01/21 9:04:00 EST, Tablet, [facility], Partial fill upon patient request ifthe [...] Most recent to oldest [Reference Range]: 1 Weight 80 kg (08/11/22 9:57 AM) Oxygen Saturation [94-100 %] 99 % (08/11/22 9:57 AM) Pulse Rate [55-90 bpm] 72 bpm (08/11/22 9:57 AM) Blood Pressure [90-138/55-84 mm Hg] 112/ 77mm Hg (08/11/22 9:57 AM) Respiratory Rate [16-30 br/min] 18 br/mi n (08/11/22 9:57 AM) Temperature [96.8-100.4 DegF] 97.5 DegF (08/11/22 9:57 AM) Liters per Minute 0 L/min (08/11/22 9:57 AM) Mode of Delivery (Oxygen) Room air (08/11/22 9:57 AM) Blood pressure sites Arm, left (08/11/22 9:57 AM) Temperature Route Oral (08/11/22 9:57 AM) Dry Weight 80 kg (08/11/22 9:57 AM) Weight Obtained Via Standing scale (08/11/22 9:57 AM) Dry Weight Obtained Via Standing scale (08/11/22 9:57 AM) Social History Social History Type Response Tobacco Other: 3/4 ppd. Sex Note * Yojana Smith: PERFORM, SIGN, VERIFY Event Display: Patient Education/Instruction Authored Date: [id number] [facility] Clinical Summary Name GUDELIA SNYDER Age 36 Years 1985 PCP Justice TUB RIDER, Mona PCP Visit Date 07/26/2022 14:23:00 Additional Instructions: Scheduled Appointments?? Future Appointments ?No [...] ?No future orders Vital Signs Height Weight 80 kg BMI Blood Pressure 112 mm Hg/77 mm Hg Temperature 97.5 DegF Pulse Rate 72 bpm Respiratory Rate 18 br/min 02 Sat Mode of Delivery 99 %/Room air You can now view a summary of your hospital visit from the comfort of your home through a free online portal called [employer]. [employer] is a website that allows you to securely view your medical information including discharge summary, medications and follow-up visits. ??You can alsosend a secure electronic message to your doctor???s office to request appointments, renew medications or just ask a question. You can enroll at [email or web address] or register during your next office [...] primary care provider, you may find a [facility] provider by calling [facility] [employer] at [phone]. For information about the plan of care [...] Care Team Personnel Name: Jailene Harris Position: [facility] Onco RN Member Role: Primary Care Nurse Name: Mona Rendon NP Position: [facility] PCO Associate Professional Member Role: PCP Address: Address: [address] [place] [address]- Name: Blake Kidd MD Position: [facility] SKIN CARE INSTRUCTOR MD Member Role: [employer] SKIN CARE INSTRUCTOR Physician Address: Address: [address] [place] [address] Name: Jodi Nguyễn RN Position: [facility] Onco RN Member Role: Primary Care Nurse Name: Kadi Torre RN Position: [facility] RN Member Role: Primary Care Nurse Care Team Related Persons Name: BELEM SNYDER Address: home [address] [place] [address] Name: JAIDA SNYDER Address: home [address] [place] [id number] Name: MEDARDO MEZA Address: [place] [address] [place] [address]
--- OUTSIDE RECORDS SUMMARY | 2022-12-26 22:17 | XMS_ITS | Continuity of Care Document ---
Author Name Unknown Organization [facility] Address [address] [place] [address]- Care Team Providers Care Campus Rep Name Role Phone Justice CASTILLO, Mona Primary Care Physician Encounter [facility] Date(s): 10/19/20 - 10/19/[address] [address]- Encounter Diagnosis Asthma(Final) - 10/19/20 Rhinorrhea(Final) - 10/19/20 Wheezing(Final) - 10/19/20 Cough(Final) - 10/19/20 Discharge Disposition: A-D/C Home Attending Physician: El Mendes DO Admitting Physician: [...] mL in dorsal gluteal left. Second lot [id number] exp 11/26/2015 Medications Albuterol 90 mcg Inhaler 2, puffs, Inhalation, Every 4 hours, PRN, Maintenance, 01/10/13 11:18:40 Start Date: 01/10/13 Status: Ordered dexamethasone 2 mg oral tablet See Instructions, 1 tablet By Mouth 2 times a day days 1-5 of chemotherapy, then t tablet in AM x 2days, then stop, # 50 tablet, 0 Refills, Maintenance, 06/01/20 13:08:00 EST, Tablet, [facility], 160, cm, 05/13/20 15:07:00 EST, Height, 87.1,... Start Date: 06/01/20 Status: Ordered Flonase 50 mcg/inh nasal spray 2 sprays, Nares, Both, Daily in AM, # 15.8 mL, 0 Refills, Maintenance, 10/19/20 14:57:00 EDT, [place], [facility]/pharmacy #[id number], Partial fill upon patient [...] 0 Refills, Maintenance, 06/01/20 13:00:00 EST, Tablet, [facility], 160, cm, 05/13/20 15:07:00 EST, Height, 87.1, kg, 05/13/20 15:07:00 EST,... Start Date: 06/01/20 Status: Ordered ondansetron 8 mg oral tablet 1 tablet = 8 mg, By Mouth, Daily, 30 minutes before chemotherapy, # 42 tablet, 1 Refills, Maintenance, 07/16/20 13:41:00 EDT, [facility], 160, cm, 07/15/20 10:30:00 EDT, Height, 95.9, kg, 07/15/20 10:30:00 EDT, Dry Weight Start Date: 07/16/20 Stop Date: 10/08/20 Status: Ordered predniSONE 20 mg oral tablet 1 tablet = 20 mg, By Mouth, 2 times a day, for 3 days, # 6 tablet, 0 Refills, Acute 10/22/20 14:55:00 EDT, 10/19/20 14:55:00 EDT, Tablet, [facility]/pharmacy #[id number], Partial fill upon patient request if the prescription is for a schedule II opioid drug., 160,... Start Date: 10/19/20 Stop Date: 10/22/20 Status: Ordered prochlorperazine 5 mg oral tablet 1 tablet = 5 mg, By Mouth, Every 6 hours, PRN Nausea & Vomiting, may cause drowsiness, # 30 tablet, 0 Refills, Maintenance, 08/26/19 9:18:00 EDT, [facility], 159.4, cm, 06/27/19 14:32:00 EDT, [...] each, 0 Refills, Maintenance, 01/17/20 15:15:00 EDT, [facility]/pharmacy #[id number], 163,cm, 12/06/19 12:26:00 EDT, Height, 73, kg, 12/06/19... Start Date: 01/17/20 Stop Date: 01/20/20 Status: Ordered zonisamide 25 mg oral capsule See Instructions, 1 capsule By Mouth 2 times a day for 1 week, then 2 bid for 1 week then 3 bid, # 120 capsule, 2 Refills, Maintenance, 10/14/20 15:29:00 EDT, Caps[place], [facility]/pharmacy #[id number], Partial fill upon patient [...] Exam Date Time Procedure Performing Provider Status 10/19/20 2:20 PM Chest 2 Views Frontal and Lat Tejal Robertson; Auth (Verified) Notes: (Chest 2 Views Frontal and Lat) Reason For Exam: Shortness of Breath, Fever;Other: RESULT: Chest 2 Views Frontal and Lat Chest 2 Views Frontal and Lat Hx of Present Illness: [place] since Monday, advised to come to ED by oncologist (brain CA), hacking productive cough, headache, denies fever; Reason: Other:; Shortness of Breath, Fever; Clinical Question(s): Pneumonia COMPARISON: 10/01/2018 FINDINGS: LINES AND TUBES: None. LUNGS AND PLEURA: Clear lungs. Normal pulmonary vascularity. No pleural effusion. No pneumothorax. HEART, MEDIASTINUM AND JOSE RAUL: Heart is normal in size. Normal upper mediastinal and hilar contour. BONES AND SOFT TISSUES: No acute abnormality. IMPRESSION: No acute abnormality. WSN: [id number] Ordering Physician: El Mendes Dictated By: Stephanie Sepulveda MD Dictated Date/Time: 10/19/20 2:30 pm Reviewed By: Stephanie Sepulveda MD Signed By: Stephanie Sepulveda MD Signed Date/Time: 10/19/20 2:30 pm Transcribed By: ALFREDO Transcribed Date/Time: 10/19/20 2:29 pm Vital Signs Most recent to oldest [Reference Range]: 1 2 3 Height 160 cm (10/19/20 3:19 PM) 160 cm (10/19/20 1:30 PM) 160 cm (10/19/20 12:43 PM) Weight 99.8 kg (10/19/20 3:19 PM) 99.8 kg (10/19/20 1:30 PM) 99.8 kg (10/19/20 12:43 PM) Oxygen Saturation [94-100 %] 96 % (10/19/20 3:19 PM) 97 % (10/19/20 1:30 PM) 97 % (10/19/20 12:43 PM) Pulse Rate [55-90 bpm] 96 bpm *H* (10/19/20 3:19 PM) 88 bpm (10/19/20 1:30 PM) 86 bpm (10/19/20 12:43 PM) Body Mass Index [18.5-24.99] 38.98 *>HHI* (10/19/20 3:19 PM) 38.98 *>HHI* (10/19/20 1:30 PM) Blood Pressure [90-138/55-84 mm Hg] 117/74mm Hg (10/19/20 3:19 PM) 115/98mm Hg (10/19/20 1:30 PM) Respiratory Rate [16-30 br/min] 20 br/min (10/19/20 3:19 PM) 18 br/min (10/19/20 1:30 PM) 20 br/min (10/19/20 12:43 PM) Temperature [96.8-100.4 DegF] 97.9 DegF (10/19/20 12:43 PM) Mode of Delivery (Oxygen) Room air (10/19/20 3:19 PM) Room air (10/19/20 1:30 PM) Blood pressure sites Arm, right (10/19/20 3:19 PM) Arm, left (10/19/20 1:30 PM) Temperature Route Oral (10/19/20 12:43 PM) Dry Weight 99.8 kg (10/19/20 3:19 PM) 99.8 kg (10/19/20 1:30 PM) 99.8 kg (10/19/20 12:43 PM) Social History Social History Type Response Smoking Status Current every day juliano stokes entered on: 09/02/16 Sex
--- OUTSIDE RECORDS SUMMARY | 2022-12-26 22:17 | XMS_ITS | Continuity of Care Document ---
Author Name Unknown Organization [facility] Address [address] [place] [address]- Care Team Providers Care Bilingual Case Manager Name Role Phone Justice CASTILLO, Mona Primary Care Physician Encounter [facility] Date(s): 01/04/22 - 03/06/[address] [address]- Attending Physician: Mona Rendon NP Admitting Physician: Justice CASTILLO, oMna Referring Physician: Justice CASTILLO, Mona Allergies, Adverse Reactions, Alerts Substance Reaction Severity [...] mL in dorsal gluteal left. Second lot [id number] exp 11/26/2015 Medications Albuterol 90 mcg Inhaler [...] Refills, Maintenance, 06/01/21 9:02:00 EST, Tablet, [facility], 152.4, cm, 05/21/21 18:46:00 EST, Height, [...] 1 Refills,Maintenance, 06/01/21 9:04:00 EST, Tablet, [facility], Partial fill upon patient request ifthe [...] Care Team Personnel Name: Jailene Harris Position: [facility] Onco RN Member Role: Primary Care Nurse Name: Mona Rendon NP Position: [facility] PCO Associate Professional Member Role: PCP Address: Address: [address] [place] [address] Name: Blake Kidd MD Position: [facility] QUALITY IMPROVEMENT COORDINATOR (RN) MD Member Role: [employer]etime QUALITY IMPROVEMENT COORDINATOR (RN) Physician Address: Address: [address] [place], [place] [address] Name: Jodi Nguyễn RN Position: [facility] RN Member Role: Primary Care Nurse Name: Enedelia Chamberlain RN Position: [facility] RN Member Role: Primary Care Nurse Name: Kadi Torre RN Position: [facility] RN Member Role: Primary Care Nurse Care Team Related Persons Name: BELEM SNYDER Address: home [address] [place] [address] Name: JAIDA SNYDER Address: home [address] [place] [address] Name: MEDARDO MEZA Address: home [address] [place] [address]
--- OUTSIDE RECORDS SUMMARY | 2022-12-26 22:18 | XMS_ITS | Continuity of Care Document ---
Author Name Unknown Organization [facility] Address [address] [place] [address]- Care Team Providers Care Foreign Clerk Name Role Phone Mona Rendon NP Primary Care Physician [phone] [place] [facility] Date(s): 10/09/19 - 10/09/[address] [address]- [facility] [phone] Discharge Disposition: A-D/C Home Attending Physician: Ita Ovalles MD Admitting Physician: Ita Ovalles MD Referring Physician: Not on Staff, Referring [...] mL in dorsal gluteal left. Second lot [id number] exp 11/26/2015 Medications acetaminophen 325 mg oral [...] Refills, Maintenance, 08/21/19 12:48:00 EDT, Tablet, [facility], 159.4, cm, 06/27/19 14:32:00 EDT, Height, [...] tablet, 0 Refills, Maintenance, 08/26/19 9:18:00 EDT, [facility], 159.4, cm, 06/27/19 14:32:00 EDT, [...] Refills, Maintenance, 06/17/19 16:34:00 EST, deliver to [facility] on 06/26 for 06/27 visit Start [...] Range]: 1 2 3 Height 161 cm (10/09/19 6:07 PM) 161 cm (10/09/19 5:19 PM) 161 cm (10/09/19 3:53 PM) Weight 70.5 kg (10/09/19 6:07 PM) 70.5 kg (10/09/19 5:19 PM) 70.5 kg (10/09/19 3:53 PM) Oxygen Saturation [94-100 %] 99 % (10/09/19 6:07 PM) 100 % (10/09/19 3:53 PM) Pulse Rate [55-90 bpm] 65 bpm (10/09/19 6:07 PM) 64 bpm (10/09/19 5:19 PM) 64 bpm (10/09/19 3:53 PM) Body Mass Index [18.5-24.99] 27.2 *H* (10/09/19 6:07 PM) 27.2 *H* (10/09/19 5:19 PM) 27.2 *H* (10/09/19 3:53 PM) Blood Pressure [90-138/55-84 mm Hg] 102/62mm Hg (10/09/19 6:07 PM) 108/67mm Hg (10/09/19 5:19 PM) 110/60mm Hg (10/09/19 3:53 PM) Respiratory Rate [16-30 br/min] 16 br/min (10/09/19 6:07 PM) 16 br/min (10/09/19 3:53 PM) 16 br/min (10/09/19 2:38 PM) Temperature [96.8-100.4 DegF] 98.5 DegF (10/09/19 6:07 PM) 98.7 DegF (10/09/19 2:38 PM) Mode of Delivery (Oxygen) Room air (10/09/19 6:07 PM) Room air (10/09/19 3:53 PM) Room air (10/09/19 2:38 PM) Temperature Route Oral (10/09/19 6:07 PM) Oral (10/09/19 2:38 PM) Dry Weight 70.5 kg (10/09/19 6:07 PM) 70.5 kg (10/09/19 5:19 PM) 70.5 kg (10/09/19 3:53 PM) Social History Social History Type Response Smoking Status Current every day juliano stokes entered on: 09/02/16 Sex
--- OUTSIDE RECORDS SUMMARY | 2022-12-26 22:18 | XMS_ITS | Continuity of Care Document ---
Author Name Unknown Organization [facility] Address [address] [facility], [address] Floor, [address] [place] [address]- Care Team Providers Care Director Of Sales Name Role Phone Mona Rendon NP Primary Care Physician [place] [facility] [place]22 [facility] [address], [address], [address] [place] [id number] Attending Physician: Admtr, Ar8 Admitting Physician: [...] mL in dorsal gluteal left. Second lot [id number] exp 11/26/2015 Medications Albuterol 90 mcg Inhaler [...] Refills, Maintenance, 06/01/21 9:02:00 EST, Tablet, [facility], 152.4, cm, 05/21/21 18:46:00 EST, Height, [...] 1 Refills,Maintenance, 06/01/21 9:04:00 EST, Tablet, [facility], Partial fill upon patient request ifthe [...] Care Team Personnel Name: Jailene Harris Position: [facility] Onco RN Member Role: Primary Care Nurse Name: Mona Rendon NP Position: [facility] PCO Associate Professional Member Role: PCP Address: Address: [address] [place] [address] Name: Blake Kidd MD Position: [facility] SMALL BUSINESS SALES REPRESENTATIVE MD Member Role: [employer] SMALL BUSINESS SALES REPRESENTATIVE Physician Address: Address: [address] [place], [place] [address] [address] Name: Jodi Nguyễn RN Position: [facility] RN Member Role: Primary Care Nurse Name: Enedelia Chamberlain RN Position: [facility] RN Member Role: Primary Care Nurse Name: Kadi Torre RN Position: [facility] RN Member Role: Primary Care Nurse Care Team Related Persons Name: BELEM SNYDER Address: home [address] [place] [address] Name: JAIDA SNYDER Address: home [address] [place] [address] Name: MEDARDO MEZA Address: home [address] [place] [address]
--- OUTSIDE RECORDS SUMMARY | 2022-12-26 22:18 | XMS_ITS | Continuity of Care Document ---
Author Name Unknown Organization [facility] Address [address] [place] [address]- Care Team Providers Care Peach Grower Name Role Phone Mona Rendon NP Primary Care Physician Encounter [facility] [place] Date(s): 09/19/19 - 10/19/[address] [address]- [place] [phone] Attending Physician: AdmSylvia puentes Admitting Physician: AdmtrSylvia [...] mL in dorsal gluteal left. Second lot [id number] exp 11/26/2015 Medications acetaminophen 325 mg oral [...] Refills, Maintenance, 08/21/19 12:48:00 EDT, Tablet, [facility], 159.4, cm, 06/27/19 14:32:00 EDT, Height, [...] tablet, 0 Refills, Maintenance, 08/26/19 9:18:00 EDT, [facility], 159.4, cm, 06/27/19 [...] capsule, 4 Refills, Maintenance, 07/26/19 15:55:00 EDT, [facility], 159.4, cm, 06/27/19 14:32:00 EDT, Height, 70.4, kg, 06/10/19 11:09:00 EST, Dry Weight Start Date: 07/26/19 Status: Ordered Zofran 8 mg oral tablet 1 tablet = 8 mg, By Mouth, 3 times a day, take 30 min before chemotherapy, then every 8 hours if needed, # 15 tablet, 5 Refills, Maintenance, 06/17/19 16:34:00 EST, deliver [place] [facility] [place] 06/26 for 06/27 visit Start [...]
--- OUTSIDE RECORDS SUMMARY | 2022-12-26 22:18 | XMS_ITS | Continuity of Care Document ---
Author Name Unknown Organization [facility] Address [address] [place] [address]- Care Team Providers Care Windows Security Analyst Name Role Phone Mona Rendon NP Primary Care Physician [phone] [place] [facility] [place] 11[place]13/19 [facility] [address] [place] [address]- [place] Allergies, Adverse Reactions, Alerts Substance Reaction Severity [...] mL in dorsal gluteal left. Second lot [id number] exp 11/26/2015 Medications acetaminophen 325 mg oral [...] 0 Refills, Maintenance, 08/21/19 12:48:00 EDT, Tablet, [facility] [place], 159.4, cm, 06/27/19 14:32:00 EDT, Height, [...] tablet, 1 Refills, Maintenance, 05/10/19 14:35:00 EST, [facility] [place], 159.4, cm, 05/09/19 11:12:00 EST, Height, 71.1, kg, 05/09/19 11:12:00 EST, Dry Weight Start Date: 05/10/19 Stop Date: 08/02/19 Status: Ordered prochlorperazine 5 mg oral tablet 1 tablet = 5 mg, By Mouth, Every 6 hours, PRN Nausea & Vomiting, may cause drowsiness, # 30 tablet, 0 Refills, Maintenance, 08/26/19 9:18:00 EDT, [facility] [place], 159.4, cm, 06/27/19 14:32:00 EDT, Height, [...] Refills, Maintenance, 06/17/19 16:34:00 EST, [place] [facility] [place] 06/26 for 06/27 visit Start [...]
--- OUTSIDE RECORDS SUMMARY | 2022-12-26 22:18 | XMS_ITS | Continuity of Care Document ---
Author Name Unknown Organization [facility] Address [address] [place] [address]- Care Team Providers Care Marine Structural Designer Name Role Phone Justice CASTILLO, Mona Primary Care Physician [phone] [place] [facility] [place] 07/28/[address] [address]- Discharge Disposition: A-D/C AMA Attending Physician: Prince Perez MD Admitting Physician: [...] mL in dorsal gluteal left. Second lot [id number] exp 11/26/2015 Medications acetaminophen 325 mg oral [...] Refills, Maintenance, 06/01/20 13:08:00 EST, Tablet, [facility], 160, cm, 05/13/20 15:07:00 EST, Height, 87.1,... Start Date: 06/01/20 Status: Ordered LORazepam 0.5 mg oral tablet 1 tablet = 0.5 mg, By Mouth, 3 times a day, PRN for anxiety, [facility] reviewed 06/01/2020, # 60 tablet, 0 Refills, Maintenance, 06/01/20 13:00:00 EST, Tablet, [facility], 160, cm, 05/13/20 15:07:00 EST, Height, 87.1, kg, 05/13/20 15:07:00 EST,... Start Date: 06/01/20 Status: Ordered ondansetron 8 mg oral tablet 1 tablet = 8 mg, By Mouth, Daily, 30 minutes before chemotherapy, # 42 tablet, 1 Refills, Maintenance, 07/16/20 13:41:00 EDT, [facility], 160, cm, 07/15/20 10:30:00 EDT, Height, 95.9, kg, 07/15/20 10:30:00 EDT, Dry Weight Start Date: 07/16/20 Stop Date: 10/08/20 Status: Ordered prochlorperazine 5 mg oral tablet 1 tablet = 5 mg, By Mouth, Every 6 hours, PRN Nausea & Vomiting, may cause drowsiness, # 30 tablet, 0 Refills, Maintenance, 08/26/19 9:18:00 EDT, [facility], 159.4, cm, 06/27/19 14:32:00 [...] capsule, 5 Refills, Maintenance, 02/26/20 13:26:00 EST, [facility], 161, cm, 02/19/20 11:43:00 [...] [Reference Range]: 1 2 Height 160 cm (07/28/20 12:08 AM) 160 cm (07/27/20 10:14 PM) Weight 95.8 kg (07/28/20 12:08 AM) 95.8 kg (07/27/20 10:14 PM) Oxygen Saturation [94-100 %] 98 % (07/27/20 10:39 PM) Pulse Rate [55-90 bpm] 62 bpm (07/27/20 10:39 PM) Blood Pressure [90-138/55-84 mm Hg] 121/ 7mm Hg (07/27/20 10:39 PM) Respiratory Rate [16-30 br/min] 18 br/mi n (07/27/20 10:39 PM) Temperature [96.8-100.4 DegF] 97.6 DegF (07/27/20 10:39 PM) Mode of Delivery (Oxygen) Room air (07/27/20 10:39 PM) Temperature Route Oral (07/27/20 10:39 PM) Dry Weight 95.8 kg (07/28/20 12:08 AM) 95.8 kg (07/27/20 10:14 PM) Social History Social History Type Response Smoking Status Current every day juliano stokes entered on: 09/02/16 Sex
--- OUTSIDE RECORDS SUMMARY | 2022-12-26 22:18 | XMS_ITS | Continuity of Care Document ---
Author Name Unknown Organization [facility] Address [address] [place] [address]- Care Team Providers Care Manager Dairy Name Role Phone Justice CASTILLO, Mona Primary Care Physician [phone] [place] [facility] [place]19 - 11/20/19 [facility] [place] [address] [place] [address]- [place] Attending Physician: Marin Gipson MD Admitting Physician: Marin Gipson MD Referring Physician: Emily Sharp DNP Allergies, Adverse Reactions, Alerts Substance Reaction Severity [...] mL in dorsal gluteal left. Second lot [id number] exp 11/26/2015 Medications acetaminophen 325 mg oral [...] 0 Refills, Maintenance, 08/21/19 12:48:00 EDT, Tablet, [facility], 159.4, cm, [...] 1 Refills, Maintenance, 05/10/19 14:35:00 EST, [facility], 159.4, cm, 05/09/19 11:12:00 EST, [...] Refills, Maintenance, 06/17/19 16:34:00 EST, deliver to [facility] on 06/26 for 06/27 visit Start [...] incontinence(Confirmed) Active in - , girl - Lliibeth 3Elevated AFP 4Surgery done for PDA 5Nexplanon inserted. Due for removal in 09/2015 Social History Social History Type Response Smoking Status Current every day juliano stokes entered on: 09/02/16 Sex
--- OUTSIDE RECORDS SUMMARY | 2022-12-26 22:18 | XMS_ITS | Continuity of Care Document ---
Author Name Unknown Organization [facility] Address [address] [place] [address]- Care Team Providers Care Plastics Fabricator And Assembler Name Role Phone Justice CASTILLO, Mona Primary Care Physician [phone] [place] [facility] [place] - 12/06/[address] [address]- [facility] [phone] Encounter Diagnosis Weakness(Final) - 12/06/19 Discharge Disposition: A-D/C Home Attending Physician: Meg ROMERO, Pal Monaco Admitting Physician: Pal Weaver MD Referring Physician: Not on Staff, Referring [...] mL in dorsal gluteal left. Second lot [id number] exp 11/26/2015 Medications acetaminophen 325 mg oral [...] 0 Refills, Maintenance, 11/27/19 16:33:00 EDT, Tablet, [facility], 162, cm, 11/26/19 16:17:00 EDT, Height, [...] tablet, 1 Refills, Maintenance, 05/10/19 14:35:00 EST, [facility], 159.4, cm, 05/09/19 11:12:00 EST, Height, 71.1, kg, 05/09/19 11:12:00 EST, Dry Weight Start Date: 05/10/19 Stop Date: 08/02/19 Status: Ordered prochlorperazine 5 mg oral tablet 1 tablet = 5 mg, By Mouth, Every 6 hours, PRN Nausea & Vomiting, may cause drowsiness, # 30 tablet, 0 Refills, Maintenance, 08/26/19 9:18:00 EDT, [facility], 159.4, cm, 06/27/19 14:32:00 [...] Refills, Maintenance, 06/17/19 16:34:00 EST, deliver to [facility] on 06/26 [...] oldest [Reference Range]: 1 2 3 Height 163 cm (12/06/19 12:26 PM) 163 cm (12/06/19 9:09 AM) Weight 73 kg (12/06/19 12:26 PM) 73 kg (12/06/19 9:09 AM) Oxygen Saturation [94-100 %] 100 % (12/06/19 12:26 PM) 100 % (12/06/19 10:15 AM) 98 % (12/06/19 10:00 AM) Pulse Rate [55-90 bpm] 63 bpm (12/06/19 12:26 PM) 54 bpm *L* (12/06/19 10:15 AM) 53 bpm *L* (12/06/19 10:00 AM) Body Mass Index [18.5-24.99] 27.48 *H* (12/06/19 12:26 PM) Blood Pressure [90-138/55-84 mm Hg] 110/61mm Hg (12/06/19 12:26 PM) 104/71mm Hg (12/06/19 10:15 AM) 103/63mm Hg (12/06/19 10:00 AM) Respiratory Rate [16-30 br/min] 16 br/min (12/06/19 12:26 PM) 20 br/min (12/06/19 10:15 AM) 20 br/min (12/06/19 10:00 AM) Temperature [96.8-100.4 DegF] 97.3 DegF (12/06/19 12:26 PM) 97.5 DegF (12/06/19 10:15 AM) 99.2 DegF (12/06/19 9:09 AM) Mode of Delivery (Oxygen) Room air (12/06/19 12:26 PM) Room air (12/06/19 10:15 AM) Room air (12/06/19 10:00 AM) Blood pressure sites Arm, left (12/06/19 12:26 PM) Arm, left (12/06/19 10:15 AM) Arm, left (12/06/19 10:00 AM) Temperature Route Oral (12/06/19 12:26 PM) Oral (12/06/19 10:15 AM) Oral (12/06/19 9:09 AM) Dry Weight 73 kg (12/06/19 12:26 PM) 73 kg (12/06/19 9:09 AM) Dry Weight Obtained Via Patient/family s tated (12/06/19 9:09 AM) Social History Social History Type Response Smoking Status Current every day juliano stokes entered on: 09/02/16 Sex
--- OUTSIDE RECORDS SUMMARY | 2022-12-26 22:18 | XMS_ITS | Continuity of Care Document ---
Author Name Unknown Organization [facility] Address [address] [place] [address]- Care Team Providers Care Compliance Examiner Name Role Phone Justice CASTILLO, Mona Primary Care Physician [place] [facility] [place]07[place]20 - 02/06/20 [facility] [address] [place] [address]- [facility] Allergies, Adverse Reactions, Alerts Substance Reaction [...] mL in dorsal gluteal left. Second lot [id number] exp 11/26/2015 Medications acetaminophen 325 mg oral [...] 0 Refills, Maintenance, 11/27/19 16:33:00 EDT, Tablet, [facility], 162, cm, 11/26/19 16:17:00 EDT, Height, 73.7,... Start Date: 11/27/19 Status: Ordered LORazepam 0.5 mg oral tablet 1 tablet = 0.5 mg, By Mouth, 3 times a day, PRN for anxiety, # 60 tablet, 0 Refills, Maintenance, 01/21/20 8:48:00 EDT, Tablet, [facility], 163, cm, 12/06/19 12:26:00 EDT, [...] tablet, 1 Refills, Maintenance, 01/21/20 10:20:00 EDT, [facility], 163, cm, 12/06/19 12:26:00 EDT, [...]
--- OUTSIDE RECORDS SUMMARY | 2022-12-26 22:18 | XMS_ITS | Continuity of Care Document ---
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 Second lot [id number] exp 11/26/2015 Medications Albuterol 90 mcg Inhaler [...] 1 Refills, Maintenance, 06/01/21 9:02:00 EST, Tablet, [facility], 152.4, cm, 05/21/21 18:46:00 EST, [...] 1 Refills,Maintenance, 06/01/21 9:04:00 EST, Tablet, [facility], Partial fill upon patient request ifthe [...] oldest [Reference Range]: 1 Height 160 cm (10/27/21 11:07 AM) Weight 91.8 kg (10/27/21 11:07 AM) Oxygen Saturation [94-100 %] 99 % (10/27/21 11:07 AM) Pulse Rate [55-90 bpm] 78 bpm (10/27/21 11:07 AM) Body Mass Index [18.5-24.99] 35.86 *>HHI* (10/27/21 11:07 AM) Blood Pressure [90-138/55-84 mm Hg] 111/ 72mm Hg (10/27/21 11:07 AM) Respiratory Rate [16-30 br/min] 18 br/mi n (10/27/21 11:07 AM) Temperature [96.8-100.4 DegF] 97.9 DegF (10/27/21 11:07 AM) Liters per Minute 0 L/min (10/27/21 11:07 AM) Mode of Delivery (Oxygen) Room air (10/27/21 11:07 AM) Blood pressure sites Arm, right (10/27/21 11:07 AM) Temperature Route Temporal (10/27/21 11:07 AM) Dry Weight 91.8 kg (10/27/21 11:07 AM) Weight Obtained Via Standing scale (10/27/21 11:07 AM) Dry Weight Obtained Via Standing scale (10/27/21 11:07 AM) Social History Social History Type Response Tobacco Other: 3/4 ppd. Sex Care Team Personnel Name: Mona Rendon NP Address: [address] [place] [id number]
--- OUTSIDE RECORDS SUMMARY | 2022-12-26 22:18 | XMS_ITS | Continuity of Care Document ---
Author Name Unknown Organization [facility] Address [address] [place] [address]- Care Team Providers Care Contract Forester Name Role Phone Mona Rendon NP Primary Care Physician [place] [facility] [place] 06/03/19 - 06/13/[address] [address]- [place] [phone] Attending Physician: AdmSylvia puentes Admitting Physician: AdmtrSylvia [...] mL in dorsal gluteal left. Second lot [id number] exp 11/26/2015 Medications acetaminophen 325 mg oral [...] tablet, 0 Refills, Maintenance, 04/22/19 11:39:00 EST, [facility] #[id number], 1 tablet By Mouth Every monday during radiation therapy, 159.4... Start Date: 04/22/19 Status: Ordered ondansetron 8 mg oral tablet 1 tablet = 8 mg, By Mouth, Daily, 30 minutes before chemotherapy, # 42 tablet, 1 Refills, Maintenance, 05/10/19 14:35:00 EST, [facility], 159.4, cm, 05/09/19 11:12:00 EST, Height, 71.1, kg, 05/09/19 11:12:00 EST, Dry Weight Start Date: 05/10/19 Stop Date: 08/02/19 Status: Ordered prochlorperazine 5 mg oral tablet 1 tablet = 5 mg, By Mouth, Every 6 hours, PRN Nausea & Vomiting, may cause drowsiness, # 30 tablet, 0 Refills, Maintenance, 04/22/19 11:45:00 EST, [facility] #[id number], 159.4, cm, 04/22/19 10:45:00EST, Height, 70.3, kg, 04/22/19 10:45:00 EST, Dry Weight Start Date: 04/22/19 Status: Ordered Ritalin 5 mg oral tablet 5 mg, 1, tablet, By Mouth, 2 times a day, per pt, Refills 0, Tot. Refills 0, Maintenance, 04/22/19 11:47:00 EST Start Date: 04/22/19 Status: Ordered Vimpat 50 mg oral tablet [...]
--- OUTSIDE RECORDS SUMMARY | 2022-12-26 22:18 | XMS_ITS | Continuity of Care Document ---
Author Name Unknown Organization [facility] Address [address] [place] [address]- Care Team Providers Care Md Do Resident Urgent Care Name Role Phone Justice CASTILLO, Mona Primary Care Physician Encounter [facility] [place] Date(s): 02/09/21 - 02/09/[address] [address]- Discharge Disposition: A-D/C Home Attending Physician: Tristen Crawford MD Admitting Physician: Tristen Crawford MD Referring Physician: Not on Staff, Referring [...] mL in dorsal gluteal left. Second lot [id number] exp 11/26/2015 Medications Albuterol 90 mcg Inhaler 2, puffs, Inhalation, Every 4 hours, PRN, Maintenance, 01/10/13 11:18:40 Start Date: 01/10/13 Status: Ordered dexamethasone 2 mg oral tablet See Instructions, 1 tablet By Mouth 2 times a day days 1-5 of chemotherapy, then t tablet in AM x 2days, then stop, # 50 tablet, 0 Refills, Maintenance, 06/01/20 13:08:00 EST, Tablet, [facility], 160, cm, 05/13/20 15:07:00 EST, Height, 87.1,... Start Date: 06/01/20 Status: Ordered Flonase 50 mcg/inh nasal spray 2 sprays, Nares, Both, Daily in AM, # 15.8 mL, 0 Refills, Maintenance, 10/19/20 14:57:00 EDT, [place], [facility]/pharmacy #[id number], Partial fill upon patient [...] 0 Refills, Maintenance, 11/12/20 8:58:00 EDT, Tablet, [facility]/pharmacy #[id number], 160, cm, 10/19/20 15:19:00 EDT, Height, 99.8, kg, 10/19/20 15:19:00 EDT, D... Start Date: 11/12/20 Status: Ordered ondansetron 8 mg oral tablet See Instructions, take 30minutes before chemotherapy then as needed every 8 hrs for Daily 5 days while on Temodar, # 15 tablet, 5 Refills, Maintenance, 12/22/20 8:53:00 EDT, [facility], 161, cm, 12/02/20 17:19:00 EDT, Height, 101, kg, 12/02/20... Start Date: 12/22/20 Status: Ordered prochlorperazine 5 mg oral tablet 1 tablet = 5 mg, By Mouth, Every 6 hours, PRN Nausea & Vomiting, may cause drowsiness, # 30 tablet, 0 Refills, Maintenance, 08/26/19 9:18:00 EDT, [facility], 159.4, cm, 06/27/19 14:32:00 EDT, Height, [...] Range]: 1 2 3 Height 160 cm (02/09/21 12:50 AM) Weight 100 kg (02/09/21 12:50 AM) Oxygen Saturation [94-100 %] 100 % (02/09/21 6:00 AM) 100 % (02/09/21 3:00 AM) 98 % (02/09/21 12:50 AM) Pulse Rate [55-90 bpm] 63 bpm (02/09/21 6:00 AM) 61 bpm (02/09/21 3:00 AM) 91 bpm *H* (02/09/21 12:50 AM) Blood Pressure [90-138/55-84 mm Hg] 137/76mm Hg (02/09/21 6:00 AM) 112/74mm Hg (02/09/21 3:00 AM) 139/86mm Hg *H* (02/09/21 12:50 AM) Respiratory Rate [16-30 br/min] 16 br/min (02/09/21 6:00 AM) 16 br/min (02/09/21 3:00 AM) 17 br/min (02/09/21 12:50 AM) Temperature [96.8-100.4 DegF] 97.1 DegF (02/09/21 12:50 AM) Temperature Route Oral (02/09/21 12:50 AM) Dry Weight 100 kg (02/09/21 12:50 AM) Social History Social History Type Response Smoking Status Current every day juliano stokes entered on: 09/02/16 Sex
--- OUTSIDE RECORDS SUMMARY | 2022-12-26 22:18 | XMS_ITS | Continuity of Care Document ---
Author Name Unknown Organization [facility] Address [address] [place] [address]- Care Team Providers Care Shipper And Receiving Name Role Phone Mona Rendon NP Primary Care Physician [place] [facility] [place] 10/15/19 - 11/14/19 [facility] [address] [place] [address]- [place] Allergies, Adverse Reactions, Alerts Substance Reaction [...] mL in dorsal gluteal left. Second lot [id number] exp 11/26/2015 Medications acetaminophen 325 mg oral [...] 0 Refills, Maintenance, 08/21/19 12:48:00 EDT, Tablet, [facility], 159.4, cm, 06/27/19 14:32:00 EDT, [...] tablet, 1 Refills, Maintenance, 05/10/19 14:35:00 EST, [facility], 159.4, cm, 05/09/19 11:12:00 EST, Height, 71.1, kg, 05/09/19 11:12:00 EST, Dry Weight Start Date: 05/10/19 Stop Date: 08/02/19 Status: Ordered prochlorperazine 5 mg oral tablet 1 tablet = 5 mg, By Mouth, Every 6 hours, PRN Nausea & Vomiting, may cause drowsiness, # 30 tablet, 0 Refills, Maintenance, 08/26/19 9:18:00 EDT, [facility], 159.4, cm, 06/27/19 14:32:00 EDT, [...] Refills, Maintenance, 06/17/19 16:34:00 EST, [place] [facility] [place] [facility] [place] for [...]
--- OUTSIDE RECORDS SUMMARY | 2022-12-26 22:18 | XMS_ITS | Continuity of Care Document ---
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 Second lot [id number] exp 11/26/2015 Medications acetaminophen 325 mg oral [...] tablet, 0 Refills, Maintenance, 04/22/19 11:39:00 EST, [facility]/pharmacy #[id number], 1 tablet By Mouth Every monday during radiation therapy, 159.4... Start Date: 04/22/19 Status: Ordered ondansetron 8 mg oral tablet 1 tablet = 8 mg, By Mouth, Daily, 30 minutes before chemotherapy, # 42 tablet, 0 Refills, Maintenance, 04/12/19 17:02:00 EST Start Date: 04/12/19 Stop Date: 05/24/19 Status: Ordered ondansetron 8 mg oral tablet 1 tablet = 8 mg, By Mouth, Daily, 30 minutes before chemotherapy, # 42 tablet, 0 Refills, Maintenance, 03/22/19 16:58:17 EST Start Date: 03/22/19 Stop Date: 05/03/19 Status: Ordered prochlorperazine 5 mg oral tablet 1 tablet = 5 mg, By Mouth, Every 6 hours, PRN Nausea & Vomiting, may cause drowsiness, # 30 tablet, 0 Refills, Maintenance, 04/22/19 11:45:00 EST, [facility]/pharmacy #[id number], 159.4, cm, 04/22/19 10:45:00EST, Height, 70.3, kg, 04/22/19 10:45:00 EST, Dry Weight Start Date: 04/22/19 Status: Ordered Ritalin 5 mg oral tablet 5 mg, 1, tablet, By Mouth, 2 times a day, per pt, Refills 0, Tot. Refills 0, Maintenance, 04/22/19 11:47:00 EST Start Date: 04/22/19 Status: Ordered sulfamethoxazole-trimethoprim 400 mg-80 mg oral tablet See Instructions, 1 tablet By Mouth Everymon throughout chemotherapy, # 18 tablet, 0 Refills, Maintenance, 03/22/19 16:59:27 EST Start Date: 03/22/19 Status: Ordered Temodar 100 mg oral capsule 1 capsule = 100 mg, By Mouth, Daily at bedtime, for 42 days, total daily dose 130 mg, # 42 capsule,0 Refills, Acute 05/24/19 17:01:00 EST, 04/12/19 17:01:00 EST Start Date: 04/12/19 Stop Date: 05/24/19 Status: Ordered Temodar 20 mg oral capsule 1 capsule = 20 mg, By Mouth, Daily at bedtime, for 42 days, total daily dose 130 mg (100, 20, two 5's), # 42 capsule, 0 Refills, Acute 05/24/19 17:02:00 EST, 04/12/19 17:02:00 EST Start Date: 04/12/19 Stop Date: 05/24/19 Status: Ordered Temodar 5 mg oral capsule 2 capsule = 10 mg, By Mouth, Daily at bedtime, for 42 days, total daily dose 130 mg, # 84 capsule, 0 Refills, Acute 05/24/19 17:02:00 EST, 04/12/19 17:02:00 EST Start Date: 04/12/19 Stop Date: 05/24/19 Status: Ordered temozolomide 100 mg oral capsule [...] oldest [Reference Range]: 1 Height 160 cm (03/06/19 11:44 AM) Weight 70.2 kg (03/06/19 11:44 AM) Oxygen Saturation [94-100 %] 100 % (03/06/19 11:44 AM) Pulse Rate [55-90 bpm] 70 bpm (03/06/19 11:44 AM) Body Mass Index [18.5-24.99] 27.42 *H* (03/06/19 11:44 AM) Blood Pressure [90-138/55-84 mm Hg] 117/ 69mm Hg (03/06/19 11:44 AM) Respiratory Rate [16-30 br/min] 18 br/mi n (03/06/19 11:44 AM) Temperature [96.8-100.4 DegF] 98.2 DegF (03/06/19 11:44 AM) Liters per Minute 0 L/min (03/06/19 11:44 AM) Mode of Delivery (Oxygen) Room air (03/06/19 11:44 AM) Blood pressure sites Arm, right (03/06/19 11:44 AM) Temperature Route Oral (03/06/19 11:44 AM) Dry Weight 70.2 kg (03/06/19 11:44 AM) Social History Social History Type Response Smoking Status Current every day juliano stokes entered on: 09/02/16 Sex
--- OUTSIDE RECORDS SUMMARY | 2022-12-26 22:18 | XMS_ITS | Continuity of Care Document ---
Author Name Unknown Organization [facility] Address [address] [place] [address]- Care Team Providers Care Power Wood Sawyer Name Role Phone Justice CASTILLO, Mona Primary Care Physician [phone] Encounter [facility] [place] Date(s): 08/23/21 - 08/23/[address] [address]- Discharge Disposition: A-D/C Home Attending Physician: Nicho Dunaway MD Admitting Physician: [...] mL in dorsal gluteal left. Second lot [id number] exp 11/26/2015 Medications Albuterol 90 mcg Inhaler [...] Exam Date Time Procedure Performing Provider Status 08/23/21 9:40 PM Wrist Comp Min 3 Views Right Iveth Whipple L; Auth (Verified) Notes: (Wrist Comp Min 3 Views Right) Reason For Exam: with Pain;Trauma RESULT: Wrist Comp Min 3 Views Right Wrist Comp Min 3 Views Right Hx of Present Illness: Fall. Pain. COMPARISON: 06/04/2018 FINDINGS: Question subtle offset of the radial articular surface. No arthritic change. Normal carpal configuration. Intact radial and ulnar styloid processes. Normal soft tissues. IMPRESSION: Question subtle offset of the radial articular surface which could reflect a nondisplaced fracture.If tender in this region, correlation with CT is recommended. A [place] message has been communicated via the [employer] system on 08/23/2021 9:50 PM, Message ID [id number]. WSN: [id number] Ordering Physician: Nicho Dunaway Dictated By: Virgilio Acevedo MD Dictated Date/Time: 08/23/21 9:51 pm Reviewed By: Virgilio Acevedo MD Signed By: Virgilio Acevedo MD Signed Date/Time: 08/23/21 9:51 pm Transcribed By: ALFREDO Transcribed Date/Time: 08/23/21 9:48 pm Vital Signs Most recent to oldest [Reference Range]: 1 2 Height 160 cm (08/23/21 8:30 PM) Weight 101 kg (08/23/21 8:30 PM) Oxygen Saturation [94-100 %] 99 % (08/23/21 11:11 PM) 98 % (08/23/21 8:30 PM) Pulse Rate [55-90 bpm] 84 bpm (08/23/21 11:11 PM) 78 bpm (08/23/21 8:30 PM) Blood Pressure [90-138/55-84 mm Hg] 113/ 82mm Hg (08/23/21 11:11 PM) 109/81mm Hg (08/23/21 8:30 PM) Respiratory Rate [16-30 br/min] 18 br/mi n (08/23/21 11:11 PM) 18 br/min (08/23/21 8:30 PM) Temperature [96.8-100.4 DegF] 98 DegF (08/23/21 8:30 PM) Mode of Delivery (Oxygen) Room air (08/23/21 11:11 PM) Dry Weight 101 kg (08/23/21 8:30 PM) Social History Social History Type Response Tobacco Other: 3/4 ppd. Sex
--- OUTSIDE RECORDS SUMMARY | 2022-12-26 22:18 | XMS_ITS | Continuity of Care Document ---
Author Name Unknown Organization [facility] Address [address] [place] [address]- Care Team Providers Care Renal Social Worker Name Role Phone Justice CASTILLO, Mona Primary Care Physician [place] [facility] [place] - 05/06/[address] [address]- [place] Attending Physician: AdmtrSylvia Admitting Physician: AdmtrSylvia Referring Physician: Admtr, Ar8 [...] mL in dorsal gluteal left. Second lot [id number] exp 11/26/2015 Medications acetaminophen 325 mg oral [...] tablet, 0 Refills, Maintenance, 04/22/19 11:39:00 EST, [facility]/pharmacy #[id number], 1 tablet By Mouth Every [...] tablet, 0 Refills, Maintenance, 04/22/19 11:45:00 EST, [facility]/pharmacy #[id number], 159.4, cm, 04/22/19 10:45:00EST, Height, [...]
--- OUTSIDE RECORDS SUMMARY | 2022-12-26 22:18 | XMS_ITS | Continuity of Care Document ---
Author Name Unknown Organization [facility] Address [address] [place] [address]- Care Team Providers Care Internet Marketing Consultant Name Role Phone Justice CASTILLO, Mona Primary Care Physician Encounter [facility] [place] Date(s): 04/20/19 - 05/26/[address] [address]- [place] Attending Physician: Corine Castillo MD Admitting Physician: [...] mL in dorsal gluteal left. Second lot [id number] exp 11/26/2015 Medications acetaminophen 325 mg oral [...] tablet, 0 Refills, Maintenance, 04/22/19 11:39:00 EST, [facility]/pharmacy #[id number], 1 tablet By Mouth Every monday during radiation therapy, 159.4... Start Date: 04/22/19 Status: Ordered dexamethasone 4 mg oral tablet 1 tablet = 4 mg, By Mouth, 2 times a day, for 7 days, take a daily dose of Prilosec while on Dexamethasone, # 14 tablet, 0 Refills, Acute 05/31/19 11:12:00 EST, 05/24/19 11:12:00 EST, Tablet, [facility]/pharmacy #[id number], 159.4, cm, 05/09/19 11:12:00 EST, Hejacqu[facility]... Start Date: 05/24/19 Stop Date: 05/31/19 Status: Ordered ondansetron 8 mg oral tablet 1 tablet = 8 mg, By Mouth, Daily, 30 minutes before chemotherapy, # 42 tablet, 1 Refills, Maintenance, 05/10/19 14:35:00 EST, [facility], 159.4, cm, 05/09/19 11:12:00 EST, Height, 71.1, kg, 05/09/19 11:12:00 EST, Dry Weight Start Date: 05/10/19 Stop Date: 08/02/19 Status: Ordered prochlorperazine 5 mg oral tablet 1 tablet = 5 mg, By Mouth, Every 6 hours, PRN Nausea & Vomiting, may cause drowsiness, # 30 tablet, 0 Refills, Maintenance, 04/22/19 11:45:00 EST, [facility]/pharmacy #[id number], 159.4, cm, 04/22/19 10:45:00EST, Height, 70.3, [...]
--- OUTSIDE RECORDS SUMMARY | 2022-12-26 22:18 | XMS_ITS | Continuity of Care Document ---
Author Name Unknown Organization [facility] Address [address] [place] [address]- Care Team Providers Care Side Panel Padder Name Role Phone Justice CASTILLO, Mona Primary Care Physician [phone] [place] [facility] [place] Date(s): 05/24/21 - 06/23/[address] [address]- Attending Physician: AdmSylvia puentes Admitting Physician: AdmtrSylvia Referring Physician: Admtr, Ar8 Allergies, Adverse Reactions, Alerts Substance Reaction Severity Status Pineapple Active Animal Dander Active Pollen Active [...] mL in dorsal gluteal left. Second lot [id number] exp 11/26/2015 Medications Albuterol 90 mcg Inhaler [...] Refills, Maintenance, 06/01/21 9:02:00 EST, Tablet, [facility], 152.4, cm, 05/21/21 18:46:00 EST, Height, [...] 1 Refills,Maintenance, 06/01/21 9:04:00 EST, Tablet, [facility], Partial fill upon patient request ifthe [...]
--- OUTSIDE RECORDS SUMMARY | 2022-12-26 22:18 | XMS_ITS | Continuity of Care Document ---
Author Name Unknown Organization [facility] Address [address] [facility], 3[address] d Floor, [address] [place] [address]- Care Team Providers Care Virology Teacher Name Role Phone Mona Rendon NP Primary Care Physician Encounter [facility] [place] Date(s): 04/28/22 - 05/28/22 [facility] [address], 3[address], [address] [place] [id number] Allergies, Adverse Reactions, Alerts Substance Reaction Severity [...] mL in dorsal gluteal left. Second lot [id number] exp 11/26/2015 Medications Albuterol 90 mcg Inhaler [...] Refills, Maintenance, 06/01/21 9:02:00 EST, Tablet, [facility], 152.4, cm, 05/21/21 18:46:00 EST, Height, [...] 1 Refills,Maintenance, 06/01/21 9:04:00 EST, Tablet, [facility], Partial fill upon patient request ifthe [...] History Social History Type Response Tobacco Other: 3 ppd. Sex Patient Care team information Care Team Personnel Name: Jailene Harris Position: [facility] Onco RN Member Role: Primary Care Nurse Name: Mona Rendon NP Position: [facility] PCO Associate Professional Member Role: PCP Address: Address: [address] [place] [address]- Name: Blake Kidd MD Position: [facility] DAMPER WORKER MD Member Role: Lifetime DAMPER WORKER Physician Address: Address: [address] [place] [address] Name: Jodi Nguyễn RN Position: [facility] RN Member Role: Primary Care Nurse Name: Enedelia Chamberlain RN Position: [facility] RN Member Role: Primary Care Nurse Name: Kadi Torre RN Position: [facility] RN Member Role: Primary Care Nurse Care Team Related Persons Name: BELEM SNYDER Address: home [address] [place] [address] Name: JAIDA SNYDER OR NADIA Address: home [address] [place] [address] Name: MEDARDO MEZA Address: home [address] [place] [address]
--- OUTSIDE RECORDS SUMMARY | 2022-12-26 22:18 | XMS_ITS | Continuity of Care Document ---
Author Name Unknown Organization [facility] Address [address] [facility], 3r d Floor, [address] [place] [address]- Care Team Providers Care Brush Polisher Name Role Phone Justice CASTILLO, Mona Primary Care Physician [phone] Encounter [facility] Date(s): 10/15/19 - 10/22/19 [facility] [address], 3[address] Floor, [address] [place] [address]- [facility] Attending Physician: Emily Sharp DNP Allergies, Adverse Reactions, [...] mL in dorsal gluteal left. Second lot [id number] exp 11/26/2015 Medications acetaminophen 325 mg oral [...] Refills, Maintenance, 08/21/19 12:48:00 EDT, Tablet, [facility], 159.4, cm, 06/27/19 14:32:00 [...] tablet, 1 Refills, Maintenance, 05/10/19 14:35:00 EST, [facility], 159.4, cm, 05/09/19 11:12:00 EST, Height, 71.1, kg, 05/09/19 11:12:00 EST, Dry Weight Start Date: 05/10/19 Stop Date: 08/02/19 Status: Ordered prochlorperazine 5 mg oral tablet 1 tablet = 5 mg, By Mouth, Every 6 hours, PRN Nausea & Vomiting, may cause drowsiness, # 30 tablet, 0 Refills, Maintenance, 08/26/19 9:18:00 EDT, [facility], 159.4, cm, 06/27/19 14:32:00 EDT, Height, [...] Refills, Maintenance, 06/17/19 16:34:00 EST, deliver to [facility] on 06/26 for 06/27 visit Start [...] oldest [Reference Range]: 1 Height 161 cm (10/15/19 11:37 AM) Weight 70.5 kg (10/15/19 11:37 AM) Social History Social History Type Response Smoking Status Current every day juliano stokes entered on: 09/02/16 Sex
--- OUTSIDE RECORDS SUMMARY | 2022-12-26 22:18 | XMS_ITS | Continuity of Care Document ---
Author Name Unknown Organization [facility] Address [address] [place] [address]- Care Team Providers Care Tower Observer Name Role Phone Mona Rendon NP Primary Care Physician Encounter [facility] [place] Date(s): 09/19/19 - 07/13/[address] [address]- [phone] Encounter Diagnosis Malignant neoplasm of brain, unspecified(Final) [...] mL in dorsal gluteal left. Second lot [id number] exp 11/26/2015 Medications acetaminophen 325 mg oral [...] Refills, Maintenance, 06/01/20 13:08:00 EST, Tablet, [facility], 160, cm, 05/13/20 15:07:00 EST, Height, 87.1,... Start Date: 06/01/20 Status: Ordered LORazepam 0.5 mg oral tablet 1 tablet = 0.5 mg, By Mouth, 3 times a day, PRN for anxiety, MassPAT reviewed 06/01/2020, # 60 tablet, 0 Refills, Maintenance, 06/01/20 13:00:00 EST, Tablet, [facility], 160, cm, 05/13/20 15:07:00 EST, Height, 87.1, kg, 05/13/20 15:07:00 EST,... Start Date: 06/01/20 Status: Ordered ondansetron 8 mg oral tablet 1 tablet = 8 mg, By Mouth, Daily, 30 minutes before chemotherapy, # 42 tablet, 1 Refills, Maintenance, 06/01/20 13:01:00 EST, [facility], 160, cm, 05/13/20 15:07:00 EST, Height, 87.1, kg, 05/13/20 15:07:00 EST, Dry Weight Start Date: 06/01/20 Stop Date: 08/24/20 Status: Ordered prochlorperazine 5 mg oral tablet 1 tablet = 5 mg, By Mouth, Every 6 hours, PRN Nausea & Vomiting, may cause drowsiness, # 30 tablet, 0 Refills, Maintenance, 08/26/19 9:18:00 EDT, [facility], 159.4, cm, 06/27/19 14:32:00 [...] Refills, Maintenance, 02/26/20 13:26:00 EST, [facility], 161, cm, 02/19/20 11:43:00 EST, Height, 79.4, kg, 02/19/20 11:43:00 EST, Dry Weight Start Date: 02/26/20 Stop Date: 03/27/20 Status: Ordered Zofran 8 mg oral tablet 1 tablet = 8 mg, By Mouth, Every 8 hours, PRN Nausea, take 30 min before chemotherapy, then every 8hours if needed, # 10 each, 0 Refills, Maintenance, 01/17/20 15:15:00 EDT, [facility]/pharmacy #[id number], 163,cm, 12/06/19 12:26:00 EDT, Height, [...] Range]: 1 2 3 Height 160 cm (06/17/20 9:53 AM) 160 cm (05/13/20 3:07 PM) 160 cm (03/16/20 3:06 PM) Weight 92.9 kg (06/17/20 9:53 AM) 87.1 kg (05/13/20 3:07 PM) 84 kg (03/16/20 3:06 PM) Oxygen Saturation [94-100 %] 98 % (05/13/20 3:07 PM) 98 % (03/16/20 3:06 PM) 99 % (02/27/20 3: PM) Pulse Rate [55-90 bpm] 72 bpm (05/13/20 3:07 PM) 77 bpm (03/16/20 3: PM) 76 bpm (02/27/20 3: PM) Body Mass Index [18.5-24.99] 36.29 *>HHI* (06/17/20 9:53 AM) 34.02 *>HHI* (05/13/20 3:07 PM) 32.81 *>HHI* (03/16/20 3:06 PM) Blood Pressure [90-138/55-84 mm Hg] 112/71mm Hg (05/13/20 3:07 PM) 118/73mm Hg (03/16/20 3:06 PM) 116/69mm Hg (02/27/20 3:11 PM) Respiratory Rate [16-30 br/min] 18 br/min (05/13/20 3:07 PM) 18 br/min (03/16/20 3:06 PM) 18 br/min (02/27/20 3: PM) Temperature [96.8-100.4 DegF] 98.2 DegF (05/13/20 3:07 PM) 98.5 DegF (03/16/20 3:06 PM) 97.9 DegF (02/27/20: PM) Liters per Minute 0 L/min (05/13/20 3:07 PM) 0 L/min (03/16/20 3:06 PM) 0 L/min (02/27/20 3: PM) Mode of Delivery (Oxygen) Room air (05/13/20 3:07 PM) Room air (03/16/20 3:06 PM) Room air (02/27/20 3:11 PM) Blood pressure sites Arm, left (05/13/20 3:07 PM) Arm, left (03/16/20 3:06 PM) Arm, left (02/27/20 3:11 PM) Temperature Route Temporal (05/13/20 3:07 PM) Temporal (03/16/20 3:06 PM) Temporal (02/27/20 3:11 PM) Dry Weight 92.9 kg (06/17/20 9:53 AM) 87.1 kg (05/13/20 3:07 PM) 84 kg (03/16/20 3:06 PM) Weight Obtained Via Standing scale (06/17/20 9:53 AM) Standing scale (05/13/20 3:07 PM) Standing scale (03/16/20 3:06 PM) Dry Weight Obtained Via Standing scale (06/17/20 9:53 AM) Standing scale (05/13/20 3:07 PM) Standing scale (03/16/20 3:06 PM) Social History Social History Type Response Smoking Status Current every day juliano stokes entered on: 09/02/16 Sex
--- OUTSIDE RECORDS SUMMARY | 2022-12-26 22:18 | XMS_ITS | Continuity of Care Document ---
Author Name Unknown Organization [facility] Address [address] [place] [address]- Care Team Providers Care Gis Software Engineer Name Role Phone Mona Rendon NP Primary Care Physician [place] [facility] [place]): [place] - 08/27/[address] [address]- [place] [phone] Encounter Diagnosis Leukopenia(Final) - 08/27/19 Nausea & vomiting(Final) - 08/27/19 Discharge Disposition: A-D/C Home Attending Physician: Jefe Morrison MD Admitting Physician: Jefe Morrison MD Referring Physician: Not on Staff, Referring [...] mL in dorsal gluteal left. Second lot [id number] exp 11/26/2015 Medications acetaminophen 325 mg oral [...] tablet, 0 Refills, Maintenance, 04/22/19 11:39:00 EST, [facility] #[id number], 1 tablet By Mouth Every monday during radiation therapy, 159.4... Start Date: 04/22/19 Status: Ordered dexamethasone 2 mg oral tablet See Instructions, 1 tablet By Mouth 2 times a day days 1-5 of chemotherapy, then t tablet in AM x 2days, then stop, # 50 tablet, 0 Refills, Maintenance, 08/21/19 12:48:00 EDT, Tablet, [facility], 159.4, [...] tablet, 1 Refills, Maintenance, 05/10/19 14:35:00 EST, [facility], 159.4, cm, 05/09/19 [...] Refills, Maintenance, 06/17/19 16:34:00 EST, deliver to [facility] on 06/26 for 06/27 visit Start [...] oldest [Reference Range]: 1 2 3 Height 159 cm (08/27/19 6:34 AM) 159 cm (08/27/19 1:04 AM) Weight 70.4 kg (08/27/19 6:34 AM) 70.4 kg (08/27/19 1:04 AM) Oxygen Saturation [94-100 %] 100 % (08/27/19 6:34 AM) 100 % (08/27/19 3:04 AM) 100 % (08/27/19 1:04 AM) Pulse Rate [55-90 bpm] 63 bpm (08/27/19 6:34 AM) 65 bpm (08/27/19 3:04 AM) 75 bpm (08/27/19 1:04 AM) Body Mass Index [18.5-24.99] 27.85 *H* (08/27/19 6:34 AM) Blood Pressure [90-138/55-84 mm Hg] 100/62mm Hg (08/27/19 6:34 AM) 96/60mm Hg (08/27/19 3:04 AM) 109/67mm Hg (08/27/19 1:04 AM) Respiratory Rate [16-30 br/min] 16 br/min (08/27/19 6:34 AM) 16 br/min (08/27/19 5:47 AM) 16 br/min (08/27/19 3:04 AM) Temperature [96.8-100.4 DegF] 97.6 DegF (08/27/19 6:34 AM) 97.8 DegF (08/27/19 3:04 AM) 97.9 DegF (08/27/19 1:04 AM) Mode of Delivery (Oxygen) Room air (08/27/19 6:34 AM) Room air (08/27/19 3:04 AM) Room air (08/27/19 1:04 AM) Blood pressure sites Arm, left (08/27/19 6:34 AM) Arm, left (08/27/19 3:04 AM) Arm, left (08/27/19 1:04 AM) Temperature Route Oral (08/27/19 6:34 AM) Oral (08/27/19 3:04 AM) Oral (08/27/19 1:04 AM) Dry Weight 70.4 kg (08/27/19 6:34 AM) 70.4 kg (08/27/19 1:04 AM) Weight Obtained Via Patient/family state d (08/27/19 1:04 AM) Dry Weight Obtained Via Patient/family s tated (08/27/19 1:04 AM) Social History Social History Type Response Smoking Status Current every day juliano stokes entered on: 09/02/16 Sex
--- OUTSIDE RECORDS SUMMARY | 2022-12-26 22:18 | XMS_ITS | Continuity of Care Document ---
Author Name Unknown Organization [facility] Address [address] [place] [address]- Care Team Providers Care Haul Truck Driver Name Role Phone Justice CASTILLO, Mona Primary Care Physician [phone] [place] [facility] [place] 07/15/20 - 09/14/[address] [address]- Encounter Diagnosis Malignant neoplasm of brain, unspecified(Final) [...] mL in dorsal gluteal left. Second lot [id number] exp 11/26/2015 Medications acetaminophen 325 mg oral [...] Refills, Maintenance, 06/01/20 13:08:00 EST, Tablet, [facility], 160, cm, 05/13/20 15:07:00 EST, Height, 87.1,... Start Date: 06/01/20 Status: Ordered LORazepam 0.5 mg oral tablet 1 tablet = 0.5 mg, By Mouth, 3 times a day, PRN for anxiety, MassPAT reviewed 06/01/2020, # 60 tablet, 0 Refills, Maintenance, 06/01/20 13:00:00 EST, Tablet, [facility], 160, cm, 05/13/20 15:07:00 EST, Height, 87.1, kg, 05/13/20 15:07:00 EST,... Start Date: 06/01/20 Status: Ordered ondansetron 8 mg oral tablet 1 tablet = 8 mg, By Mouth, Daily, 30 minutes before chemotherapy, # 42 tablet, 1 Refills, Maintenance, 07/16/20 13:41:00 EDT, [facility], 160, cm, 07/15/20 10:30:00 EDT, Height, 95.9, kg, 07/15/20 10:30:00 EDT, Dry Weight Start Date: 07/16/20 Stop Date: 10/08/20 Status: Ordered prochlorperazine 5 mg oral tablet 1 tablet = 5 mg, By Mouth, Every 6 hours, PRN Nausea & Vomiting, may cause drowsiness, # 30 tablet, 0 Refills, Maintenance, 08/26/19 9:18:00 EDT, [facility], 159.4, cm, 06/27/19 14:32:00 [...] capsule, 5 Refills, Maintenance, 02/26/20 13:26:00 EST, [facility], 161, cm, 02/19/20 11:43:00 EST, Height, 79.4, kg, 02/19/20 11:43:00 EST, Dry Weight Start Date: 02/26/20 Stop Date: 03/27/20 Status: Ordered Zofran 8 mg oral tablet 1 tablet = 8 mg, By Mouth, Every 8 hours, PRN Nausea, take 30 min before chemotherapy, then every 8hours if needed, # 10 each, 0 Refills, Maintenance, 01/17/20 15:15:00 EDT, [facility]/pharmacy #[id number], 163,cm, 12/06/19 12:26:00 EDT, Height, 73, [...] [Reference Range]: 1 2 Height 160 cm (09/11/20 11:30 AM) 160 cm (07/15/20:30 AM) Weight 99.2 kg (09/11/20 11:30 AM) 95.9 kg (07/15/20 10:30 AM) Oxygen Saturation [94-100 %] 99 % (09/11/20: AM) 98 % (07/15/20: AM) Pulse Rate [55-90 bpm] 72 bpm (09/11/20 11:30 AM) 72 bpm (07/15/20:30 AM) Body Mass Index [18.5-24.99] 38.75 *>HHI* (09/11/20: AM) 37.46 *>HHI* (07/15/20: AM) Blood Pressure [90-138/55-84 mm Hg] 104/ 66mm Hg (09/11/20: AM) 113/70mm Hg (07/15/20:30 AM) Respiratory Rate [16-30 br/min] 18 br/mi n (09/11/20 11:30 AM) 18 br/min (07/15/20:30 AM) Temperature [96.8-100.4 DegF] 97.9 DegF (09/11/20:30 AM) 97.6 DegF (07/15/20:30 AM) Liters per Minute 0 L/min (09/11/20: AM) 0 L/min (07/15/20:30 AM) Mode of Delivery (Oxygen) Room air (09/11/20 11:30 AM) Room air (07/15/20:30 AM) Blood pressure sites Arm, left (09/11/20 11:30 AM) Arm, left (07/15/20 10:30 AM) Temperature Route Temporal (09/11/20 11:30 AM) Temporal (07/15/20:30 AM) Dry Weight 99.2 kg (09/11/20 11:30 AM) 95.9 kg (07/15/20 10:30 AM) Weight Obtained Via Standing scale (09/11/20 11:30 AM) Standing scale (07/15/20 10:30 AM) Dry Weight Obtained Via Standing scale (09/11/20 11:30 AM) Standing scale (07/15/20 10:30 AM) Social History Social History Type Response Smoking Status Current every day juliano stokes entered on: 09/02/16 Sex
--- OUTSIDE RECORDS SUMMARY | 2022-12-26 22:18 | XMS_ITS | Continuity of Care Document ---
Author Name Unknown Organization [facility] Address [address] [facility], [address] d Floor, [address] [place] [address]- Care Team Providers Care Glass Calibrator Name Role Phone Justice CASTILLO, Mona Primary Care Physician [phone] [place] [facility] [place](s): 05/06/22 - 06/17/22 [facility] [address], [address], [address] [place] [id number] Attending Physician: Mindi ROMERO, Shimon Villalba Admitting Physician: Shimon Obregon MD Referring Physician: Pierce Nichols MD Allergies, Adverse Reactions, Alerts Substance Reaction [...] mL in dorsal gluteal left. Second lot [id number] exp 11/26/2015 Medications Albuterol 90 mcg Inhaler [...] Refills, Maintenance, 06/01/21 9:02:00 EST, Tablet, [facility], 152.4, cm, 05/21/21 18:46:00 EST, Height, [...] 1 Refills,Maintenance, 06/01/21 9:04:00 EST, Tablet, [facility], Partial fill upon patient request ifthe [...] Care Team Personnel Name: Jailene Harris Position: [facility] Onco RN Member Role: Primary Care Nurse Name: Mona Rendon NP Position: [facility] PCO Associate Professional Member Role: PCP Address: Address: [address] [place] [address] Name: Blake Kidd MD Position: [facility] KENO WRITER/RUNNER MD Member Role: Lifetime KENO WRITER/RUNNER Physician Address: Address: [address] [place], [place] [address] [address] Name: Jodi Nguyễn RN Position: [facility] RN Member Role: Primary Care Nurse Name: Enedelia Chamberlain RN Position: [facility] RN Member Role: Primary Care Nurse Name: Kadi Torre RN Position: [facility] RN Member Role: Primary Care Nurse Care Team Related Persons Name: BELEM SNYDER Address: home [address] [place] [address] Name: JAIDA SNYDER Address: home [address] [place] [address] Name: MEDARDO MEZA Address: home [address] [place] [address]
--- OUTSIDE RECORDS SUMMARY | 2022-12-26 22:18 | XMS_ITS | Continuity of Care Document ---
Author Name Unknown Organization [facility] Address [address] [place] [address]- Care Team Providers Care Screwdown Operator Name Role Phone Justice CASTILLO, Mona Primary Care Physician [phone] [place] [facility] [place] 02/19/20 - 02/19/[address] [address]- [facility] [phone] Discharge Disposition: A-D/C Home Attending Physician: Og Hale MD Admitting Physician: Og Hale MD Referring Physician: Not on Staff, Referring [...] mL in dorsal gluteal left. Second lot [id number] exp 11/26/2015 Medications acetaminophen 325 mg oral [...] 0 Refills, Maintenance, 11/27/19 16:33:00 EDT, Tablet, [facility], 162, cm, 11/26/19 16:17:00 EDT, Height, 73.7,... Start Date: 11/27/19 Status: Ordered LORazepam 0.5 mg oral tablet 1 tablet = 0.5 mg, By Mouth, 3 times a day, PRN for anxiety, # 60 tablet, 0 Refills, Maintenance, 01/21/20 8:48:00 EDT, Tablet, [facility], 163, cm, 12/06/19 12:26:00 [...] tablet, 1 Refills, Maintenance, 01/21/20 10:20:00 EDT, [facility], 163, cm, 12/06/19 12:26:00 EDT, Height, 73, kg, 12/06/19 12:26:00 EDT, Dry Weight Start Date: 01/21/20 Stop Date: 04/14/20 Status: Ordered prochlorperazine 5 mg oral tablet 1 tablet = 5 mg, By Mouth, Every 6 hours, PRN Nausea & Vomiting, may cause drowsiness, # 30 tablet, 0 Refills, Maintenance, 08/26/19 9:18:00 EDT, [facility], 159.4, cm, 06/27/19 14:32:00 [...] each, 0 Refills, Maintenance, 01/17/20 15:15:00 EDT, [facility]/pharmacy #[id number], 163,cm, 12/06/19 12:26:00 EDT, Height, 73, [...] [Reference Range]: 1 2 Height 161 cm (02/19/20 11:43 AM) 161 cm (02/19/20 9:37 AM) Weight 79.4 kg (02/19/20 11:43 AM) 79.4 kg (02/19/20 9:37 AM) Oxygen Saturation [94-100 %] 100 % (02/19/20 11:43 AM) 99 % (02/19/20:37 AM) Pulse Rate [55-90 bpm] 61 bpm (02/19/20 11:43 AM) 61 bpm (02/19/20:37 AM) Body Mass Index [18.5-24.99] 30.63 *>HHI* (02/19/20 11:43 AM) Blood Pressure [90-138/55-84 mm Hg] 114/ 76mm Hg (02/19/20 11:43 AM) 113/77mm Hg (02/19/20:37 AM) Respiratory Rate [16-30 br/min] 15 br/mi n *L* (02/19/20 11:43 AM) 16 br/min (02/19/20 9:37 AM) Temperature [96.8-100.4 DegF] 97.4 DegF (02/19/20 11:43 AM) 98 DegF (02/19/20:37 AM) Mode of Delivery (Oxygen) Room air (02/19/20 11:43 AM) Room air (02/19/20 9:37 AM) Blood pressure sites Arm, left (02/19/20 11:43 AM) Arm, left (02/19/20 9:37 AM) Temperature Route Oral (02/19/20 11:43 AM) Oral (02/19/20 9:37 AM) Dry Weight 79.4 kg (02/19/20 11:43 AM) 79.4 kg (02/19/20 9:37 AM) Weight Obtained Via Patient/family state d (02/19/20 9:37 AM) Social History Social History Type Response Smoking Status Current every day juliano stokes entered on: 09/02/16 Sex
--- OUTSIDE RECORDS SUMMARY | 2022-12-26 22:18 | XMS_ITS | Continuity of Care Document ---
Author Name Unknown Organization [facility] Address [address] [place] [address]- Care Team Providers Care Tectonophysicist Name Role Phone Justice CASTILLO, Mona Primary Care Physician [facility] Date(s): 12/21/21 - 12/21/[address] [address]- Discharge Disposition: A-D/C AMA Attending Physician: Shimon Chris DO Admitting Physician: Shimon Chris DO Referring Physician: Not on Staff, Referring [...] mL in dorsal gluteal left. Second lot [id number] exp 11/26/2015 Medications Albuterol 90 mcg Inhaler [...] Refills, Maintenance, 06/01/21 9:02:00 EST, Tablet, [facility], 152.4, cm, 05/21/21 18:46:00 EST, Height, [...] Exam Date Time Procedure Performing Provider Status 12/21/21 5:25 PM Chest Portable Eric Garcia; Auth (Verified) Notes: (Chest Portable) Reason For Exam: Stroke;Other: RESULT: Chest Portable Chest Portable INDICATION: Headache since 8:30 am with left arm weakness.; Stroke; Clinical Question(s): CHF COMPARISON: Multiple priors, most recently 10/19/2020 FINDINGS: LINES AND TUBES: None. LUNGS AND PLEURA: Clear lungs. Normal pulmonary vascularity. No pleural effusion. No pneumothorax. HEART, MEDIASTINUM AND JOSE RAUL: Heart is normal in size. Normal upper mediastinal and hilar contour. BONES AND SOFT TISSUES: No acute abnormality. 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 IMPRESSION: No acute abnormality. I have personally reviewed the images and I agree with this report. WSN: [id number] Ordering Physician: Prince Perez Dictated By: Néstor Mcdonald DO Dictated Date/Time: 12/21/21 5:35 pm Reviewed By: Pal Gutierrez MD Signed By: Pal Gutierrez MD Signed Date/Time: 12/21/21 5:40 pm Transcribed By: ALFREDO Transcribed Date/Time: 12/21/21 5:29 pm Vital Signs Most recent to oldest [Reference Range]: 1 2 3 Height 161 cm (12/21/21 4:39 PM) Weight 90 kg (12/21/21 4:39 PM) Oxygen Saturation [94-100 %] 100 % (12/21/21 6:30 PM) 100 % (12/21/21 5:30 PM) 100 % (12/21/21 5:00 PM) Pulse Rate [55-90 bpm] 76 bpm (12/21/21 6:30 PM) 75 bpm (12/21/21 5:30 PM) 72 bpm (12/21/21 5:00 PM) Blood Pressure [90-138/55-84 mm Hg] 118/75mm Hg (12/21/21 6:30 PM) 113/82mm Hg (12/21/21 5:30 PM) 111/88mm Hg (12/21/21 5:00 PM) Respiratory Rate [16-30 br/min] 18 br/min (12/21/21 6:30 PM) 20 br/min (12/21/21 5:30 PM) 21 br/min (12/21/21 5:00 PM) Temperature [96.8-100.4 DegF] 98.4 DegF (12/21/21 4:39 PM) Mode of Delivery (Oxygen) Room air (12/21/21 6:30 PM) Room air (12/21/21 5:30 PM) Room air (12/21/21 5:00 PM) Blood pressure sites Arm, left (12/21/21 5:30 PM) Arm, left (12/21/21 5:00 PM) Arm, left (12/21/21 4:39 PM) Temperature Route Oral (12/21/21 4:39 PM) Dry Weight 90 kg (12/21/21 4:39 PM) Dry Weight Obtained Via Patient/family s tated (12/21/21 4:39 PM) Social History Social History Type Response Tobacco Other: 3/4 ppd. Sex Note * BHSPowerscribe , CIS S: TRANSCRIBE Néstor Mcdonald DO: SIGN Pal Gutierrez MD: VERIFY Event Display: Result: Authored Date: Chest Portable INDICATION: Headache since 8:30 am with left arm weakness.; Stroke; Clinical Question(s): CHF COMPARISON: Multiple priors, most recently 10/19/2020 FINDINGS: LINES AND TUBES: None. LUNGS AND PLEURA: Clear lungs. Normal pulmonary vascularity. No pleural effusion. No pneumothorax. HEART, MEDIASTINUM AND JOSE RAUL: Heart is normal in size. Normal upper mediastinal and hilar contour. BONES AND SOFT TISSUES: No acute abnormality. 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 IMPRESSION: No acute abnormality. I have personally reviewed the images and I agree with this report. WSN: [id number] Ordering Physician: Prince Perez Dictated By: Néstor Mcdonald DO Dictated Date/Time: 12/21/21 5:35 pm Reviewed By: Pal Gutierrez MD Signed By: Pal Gutierrez MD Signed Date/Time: 12/21/21 5:40 pm Transcribed By: ALFREDO Transcribed Date/Time: 12/21/21 5:29 pm Care Team Personnel Name: Mona Rendon NP Address: [address] [place] [address]
--- OUTSIDE RECORDS SUMMARY | 2022-12-26 22:19 | XMS_ITS | Continuity of Care Document ---
Author Name Unknown Organization [facility] Address [address] [place] [address]- Care Team Providers Care Federal Appellate Law Clerk Name Role Phone Justice CASTILLO, Mona Primary Care Physician [place] [facility] [place]/10/22 - 03/22/[address] [address]- Encounter Diagnosis Personal history of malignant neoplasm [...] mL in dorsal gluteal left. Second lot [id number] exp 11/26/2015 Medications Albuterol 90 mcg Inhaler [...] Refills, Maintenance, 06/01/21 9:02:00 EST, Tablet, [facility], 152.4, cm, 05/21/21 18:46:00 EST, Height, [...] oldest [Reference Range]: 1 Height 158.5 cm (01/20/22 1:20 PM) Weight 87.5 kg (01/20/22 1:20 PM) Oxygen Saturation [94-100 %] 99 % (01/20/22 1:20 PM) Pulse Rate [55-90 bpm] 89 bpm (01/20/22 1:20 PM) Body Mass Index [18.5-24.99 kg/m2] 34.83 kg/m2 *>HHI* (01/20/22 1:20 PM) Blood Pressure [90-138/55-84 mm Hg] 110/ 64mm Hg (01/20/22 1:20 PM) Respiratory Rate [16-30 br/min] 18 br/mi n (01/20/22 1:20 PM) Temperature [96.8-100.4 DegF] 97.9 DegF (01/20/22 1:20 PM) Liters per Minute 0 L/min (01/20/22 1:20 PM) Mode of Delivery (Oxygen) Room air (01/20/22 1:20 PM) Blood pressure sites Arm, left (01/20/22 1:20 PM) Temperature Route Oral (01/20/22 1:20 PM) Dry Weight 87.5 kg (01/20/22 1:20 PM) Weight Obtained Via Standing scale (01/20/22 1:20 PM) Dry Weight Obtained Via Standing scale (01/20/22 1:20 PM) Social History Social History Type Response Tobacco Other: 3/4 ppd. Sex Note * Yojana Smith: PERFORM, SIGN, VERIFY Event Display: Patient Education/Instruction Authored Date: [id number] [facility] Oncology Clinical Summary Name GUDELIA SNYDER Age 36 Years 1985 PCP Justice WASTE TRANSPORTATION TECHNICIAN, Mona PCP Visit Date 01/10/2022 09:35:00 Additional Instructions: Scheduled Appointments?? Future Appointments ?[facility] ?[address],??[place],??[address] ?Phone:??[phone]?Fax:??-- ?Appt. Date:??01/20/2022?2:00 PM ?Scheduled Provider:??[facility]ammo [facility]m [facility] ?[facility] ?[address],??[place],??[address] ?Phone:??[phone]?Fax:??-- ?Appt. Date:??01/20/2022?2:30 PM ?Scheduled Provider:??[facility] US/MM 3 Follow-Up Instructions ?? Diagnosis Medications: Please continue [...] home through a free online portal called [employer]. [employer] is a website that allows you to securely view your medical information including discharge summary, medications and follow-up visits. ??You can alsosend a secure electronic message to your doctor???s office to request appointments, renew medications or just ask a question. You can enroll at [email or web address] or register during your next [...] primary care provider, you may find a [facility] provider by calling [facility] Link at [phone]. For information about the plan of care [...] Professional Member Role: PCP Address: Address: [address] [place] [address]- Name: Blake Kidd MD Position: [facility] COLLAR CLOSER LOCKSTITCH MD Member Role: Lifetime COLLAR CLOSER LOCKSTITCH Physician Address: Address: [address] [place] [address]- Name: Jodi Nguyễn RN Position: S RN Member Role: Primary Care Nurse Name: Kadi Torre RN Position: [facility] RN Member Role: Primary Care Nurse Care Team Related Persons Name: BELEM SNYDER Address: home [address] [place] [address] Name: JAIDA SNYDER Address: home [address] [place] [address] Name: MEDARDO MEZA Address: home [address] [place] [address]
--- OUTSIDE RECORDS SUMMARY | 2022-12-26 22:19 | XMS_ITS | Continuity of Care Document ---
Author Name Unknown Organization [facility] Address [address] [facility], [address] d Floor, [address] [place] [address]- Care Team Providers Care Ingot Stripper Name Role Phone Justice CASTILLO, Mona Primary Care Physician Encounter [facility] Date(s): 10/17/19 - 10/24/19 [facility] [address], [address] Floor, [address] [place] [address]- [facility] Attending Physician: Emily Sharp DNP Allergies, Adverse [...] mL in dorsal gluteal left. Second lot [id number] exp 11/26/2015 Medications acetaminophen 325 mg oral [...] 0 Refills, Maintenance, 08/21/19 12:48:00 EDT, Tablet, [facility], 159.4, cm, 06/27/19 [...] tablet, 1 Refills, Maintenance, 05/10/19 14:35:00 EST, [facility], 159.4, cm, 05/09/19 11:12:00 EST, Height, 71.1, kg, 05/09/19 11:12:00 EST, Dry Weight Start Date: 05/10/19 Stop Date: 08/02/19 Status: Ordered prochlorperazine 5 mg oral tablet 1 tablet = 5 mg, By Mouth, Every 6 hours, PRN Nausea & Vomiting, may cause drowsiness, # 30 tablet, 0 Refills, Maintenance, 08/26/19 9:18:00 EDT, [facility], 159.4, cm, 06/27/19 14:32:00 EDT, Height, [...]
--- OUTSIDE RECORDS SUMMARY | 2022-12-26 22:19 | XMS_ITS | Continuity of Care Document ---
Author Name Unknown Organization [facility] Address [address] [place] [address]- Care Team Providers Care Director Of Medical Staff Services Name Role Phone Justice CASTILLO, Mona Primary Care Physician [phone] [place] [facility] Date(s): 06/08/21 - 08/25/[address] [address]- Encounter Diagnosis Major depressive disorder, recurrent, moderate(Final) - Discharge Disposition: A-D/C Home Attending Physician: Jose Henning MD Admitting Physician: Jose Henning MD Referring Physician: Not on Staff, Referring [...] mL in dorsal gluteal left. Second lot [id number] exp 11/26/2015 Medications Albuterol 90 mcg Inhaler [...] 1 Refills, Maintenance, 06/01/21 9:02:00 EST, Tablet, [facility], 152.4, cm, 05/21/21 18:46:00 EST, Height, [...] tablet, 1 Refills,Maintenance, 06/01/21 9:04:00 EST, Tablet, [facility], Partial fill upon patient request [...] Most recent to oldest [Reference Range]: 1 Sensory deficits None (06/08/21 3:10 PM) Social History Social History Type Response Tobacco Other: 3/4 ppd. Sex
--- OUTSIDE RECORDS SUMMARY | 2022-12-26 22:19 | XMS_ITS | Continuity of Care Document ---
Author Name Unknown Organization [facility] Address [address] [facility], 3[address] d Floor, [address] [place] [address]- Care Team Providers Care Chief Airline Radio Operator Name Role Phone Justice CASTILLO, Mona Primary Care Physician [phone] Encounter [facility] [place] Date(s): 10/17/19 - 11/16/19 [facility] [address] [place], [address] Floor, [address] [place] [address] [facility] Attending Physician: Admtr, [id number] Admitting Physician: Admtr, [...] mL in dorsal gluteal left. Second lot [id number] exp 11/26/2015 Medications acetaminophen 325 mg oral [...] Refills, Maintenance, 08/21/19 12:48:00 EDT, Tablet, [facility], 159.4, cm, 06/27/19 14:32:00 EDT, Height, [...] 1 Refills, Maintenance, 05/10/19 14:35:00 EST, [facility], 159.4, cm, 05/09/19 11:12:00 EST, Height, 71.1, kg, 05/09/19 11:12:00 EST, Dry Weight Start Date: 05/10/19 Stop Date: 08/02/19 Status: Ordered prochlorperazine 5 mg oral tablet 1 tablet = 5 mg, By Mouth, Every 6 hours, PRN Nausea & Vomiting, may cause drowsiness, # 30 tablet, 0 Refills, Maintenance, 08/26/19 9:18:00 EDT, [facility], 159.4, cm, 06/27/19 14:32:00 EDT, Height, [...] Refills, Maintenance, 06/17/19 16:34:00 EST, deliver to [facility] on 06/26 for 06/27 visit Start [...]
[2022-12-26] MEDS: Doxycycline Monohydrate 100 MG CAPSULE PO (23:45)
[2022-12-26] MEDS: cephALEXin 500 MG CAPSULE PO (23:45)
[2022-12-26] MEDS: Ibuprofen 600 MG TABLET PO (23:45)
[2022-12-26 23:47] VITALS: BP 117/70; PULSE 82; RESP 16; TEMP 36.8; O2SAT 98
--- NOTE | 2022-12-26 23:54 | PC.NURSE ---
and PA to bedside to drain abcess. Patient tolerated procedure. Patient was discharged with family member who is staff at hospital. Education provided regarding wound care.
--- NOTE | 2023-01-06 07:49 | ED_ITS ---
HPI - General Adult General Chief complaint: General Medical Stated complaint: left breast pain Time Seen by Provider: 12/26/22 23:02 Source: patient Mode of arrival: ambulatory Limitations: no limitations History of Present Illness HPI narrative: Patient comes here was redness and swelling of the left breast for last few days getting worse now with surrounding erythema Related Data Previous Rx's Medication Instructions Recorded cephalexin 500 mg capsule 500 mg PO QID 10 days #40 caps 12/26/22 doxycycline hyclate 100 mg tablet 100 mg PO BID #20 tabs 12/26/22 ibuprofen 600 mg tablet 600 mg PO Q6H PRN fever or pain 12/26/22 #30 tabs Allergies Allergy/AdvReac Type Severity Reaction Status Date / Time No Known Allergies Allergy Verified 11/02/22 20:11 Review of Systems 2 Review of Systems: Yes all other systems are reviewed and are negative PMFSH Past Medical History Medical History Anxiety Syncope Astrocytoma Social History Social History Alcohol intake: current Alcohol intake frequency: holidays/special occasions only Patient Tobacco Use Status: Current someday Tobacco user Advance Directives: No Advance Directives Information Provided: Yes Physical Exam ED Vital Signs: BMI result Body Mass Index 33.1 Appearance: Alert. Oriented X3. No acute distress. ENT: Pharynx normal. Oral Mucosa moist Neck: Normal inspection. Neck supple. CVS: Normal heart rate and rhythm. Pulses normal. Respiratory: No respiratory distress. Equal air entry bilateral, abscess left breast Neuro: Oriented X 3. Chest Chest/axillae images: 2 1. Prominent abscess with surrounding erythema Medications Administered Discontinued Medications Generic Name Dose Route Start Last Admin Trade Name Freq PRN Reason Stop Dose Admin Cephalexin HCl 500 mg 12/26/22 23:25 12/26/22 23:45 Cephalexin 500 Mg Capsule PO 12/26/22 23:26 500 mg ONCE ONE Administration Doxycycline Monohydrate 100 mg 12/26/22 23:25 12/26/22 23:45 Doxycycline Monohydrate 100 Mg Capsule PO 12/26/22 23:26 100 mg ONCE ONE Administration Ibuprofen 600 mg 12/26/22 23:28 12/26/22 23:45 Ibuprofen 600 Mg Tablet PO 12/26/22 23:29 600 mg ONCE ONE Administration Procedures Abscess I/D Site: other (Left breast) Local Anesthetic: lidocaine 1% Amount of anesthesia used (mL): 10 Technique: incised with blade Amount of fluid expressed (mL): 15 Sent for culture/gram staining?: No Irrigation: No Packing used?: none Discharge Plan Discharge Clinical Impression: Left breast abscess Patient Disposition: Home, Self-Care Instructions: Abscess Incision and Drainage (DC) Additional Instructions: Local care as adv Take antibiotic Warm packs Report to the ER if increasing swelling /redness/fever Prescriptions: New cephalexin 500 mg capsule 500 mg PO QID 10 Days Qty: 40 0RF ibuprofen 600 mg tablet 600 mg PO Q6H PRN (Reason: fever or pain) Qty: 30 0RF doxycycline hyclate 100 mg tablet 100 mg PO BID Qty: 20 0RF Discharge Date/Time: 12/26/22 23:53
== END 2022-12-26 23:53 | disposition home or self-care (01) ==
PROVIDERS: Emergency Provider Internal Medicine; PCP Nurse Practitioner Family
DX: N61.1 Abscess of the breast and nipple (principal); N64.4 Mastodynia; Z79.899 Other long term (current) drug therapy
CPT/HCPCS: 10060; 76642; 87070; 87205; 99283; 99284

== ENCOUNTER 2023-05-16 01:26 | Emergency (ER) | payer BC, MEDICARE, SELFPAY ==
[2023-05-16 01:35] VITALS: BP 116/73; BP 118/72; PULSE 52; PULSE 69; RESP 16; TEMP 36.6; O2SAT 97; O2SAT 98; BMI 32.8
--- OUTSIDE RECORDS SUMMARY | 2023-05-16 03:08 | XMS_ITS | Continuity of Care Document ---
Author Name Unknown Organization [facility] Address [address] [place] [address]- Care Team Providers Care Hardware Assembler Name Role Phone Justice CASTILLO, Mona Primary Care Physician [phone] Encounter [facility] Date(s): 12/21/22 - 01/20/23 [facility] [address] [place] [address] Attending Physician: Admtr, Ar8 Admitting Physician: Admtr, Ar8 Referring Physician: Admtr, Ar8 Allergies, Adverse Reactions, Alerts Substance Reaction Severity Status Animal Dander Active Pollen Active Other Environmental Allergy 1 Active Pineapple Active Keppra Active 1euccalyptus Immunizations Given and Recorded Vaccine [...] mL in dorsal gluteal left. Second lot [id number] exp 11/26/2015 Medications Albuterol 90 mcg Inhaler [...] Refills, Maintenance, 06/01/21 9:02:00 EST, Tablet, [facility], 152.4, cm, 05/21/21 18:46:00 EST, Height, [...] 1 Refills,Maintenance, 06/01/21 9:04:00 EST, Tablet, [facility], Partial fill upon patient request ifthe [...] Care Team Personnel Name: Jailene Harris Position: [facility] Onco RN Member Role: Primary Care Nurse Name: Mona Rendon NP Position: [facility] PCO Associate Professional Member Role: PCP Address: Address: [address] [place] [address]- Name: Blake Kidd MD Position: [facility] CREDIT COLLECTION ASSOCIATE MD Member Role: Lifetime CREDIT COLLECTION ASSOCIATE Physician Address: Address: [address] [place] [address] Name: Jodi Nguyễn RN Position: [facility] Onco RN Member Role: Primary Care Nurse Name: Kadi Torre RN Position: S RN Member Role: Primary Care Nurse Care Team Related Persons Name: BELEM SNYDER Address: home [address] [place] [address] Name: JAIDA SNYDER OR NADIA Address: home [address] [place] [address] Name: MEDARDO MEZA Address: home [address] [place] [address]
== END 2023-05-16 03:18 | disposition left against medical advice (07) ==
PROVIDERS: Emergency Provider Emergency Medicine
DX: M79.601 Pain in right arm (principal)
CPT/HCPCS: 99281

== ENCOUNTER 2023-08-14 14:58 | Inpatient (IN) | payer BC, MEDICARE, SELFPAY ==
--- NOTE | ~2023-08-14 | CT_ITS ---
EXAMINATION: CT HEAD WITH CONTRAST CLINICAL INFORMATION: History of brain tumors. Stuttering. Abnormal behavior. COMPARISON: Head CT dated 11/02/2022. TECHNIQUE: Contiguous axial imaging was performed from the skull base to vertex following the administration of 100 mL of Omnipaque [address] examination was performed using dose optimization techniques as appropriate, variously including the following: *Automated exposure control *Adjustment of mA and/or kV according to patient size (this includes techniques or standardized protocols for targeted exams where dose is matched to indication/reason for exam; i.e. extremities or head) *Use of iterative reconstruction technique DLP: 657 mGy-cm FINDINGS: There is no intracranial hemorrhage. There is no evidence of acute/subacute cerebral or cerebellar infarction. There is a stable area of low attenuation within the anterior/inferior right frontal lobe. There are chronic postoperative changes of a partial right temporal lobectomy. There is no midline shift or mass effect. There is no extra-axial fluid collection. There is no pathologic enhancement. No hydrocephalus. The orbits are symmetric and within normal limits. There is a right frontal craniotomy defect. The mastoid air cells are clear. Visualized paranasal sinuses are well aerated. CT/CT head/brain w IV con IMPRESSION: No acute intracranial pathology. Surgical changes status post partial right temporal lobectomy. There is a stable area of low attenuation within the anterior/inferior right frontal lobe, likely an area of chronic ischemia/infarction. This may also be the result of remote trauma.
--- NOTE | ~2023-08-14 | XR_ITS ---
EXAMINATION: XR CERVICAL SPINE XR THORACIC SPINE XR LUMBAR SPINE XR LEFT HIP XR RIGHT HIP CLINICAL INFORMATION: History of cancer. Headaches. Bilateral hip pain. Neck and back pain. COMPARISON: 11/30/2022 TECHNIQUE: AP, bilateral oblique and open-mouth odontoid views of the cervical spine. AP, lateral and swimmer's views of the thoracic spine. AP and lateral views of the lumbar spine. AP and frog-leg lateral views of each hip. FINDINGS: Cervical spine: The lateral masses are symmetric. No significant neural foraminal narrowing. Imaged lung apices are clear. There is a round peripherally calcified density projecting over the thoracic inlet measuring 2.0 x 1.9 cm. This is seen on the 11/30/2022 chest x-ray. Thoracic spine: There are 12 rib-bearing thoracic vertebral bodies. Normal alignment. Vertebral body heights and intervertebral disc spaces are maintained. Pedicles are intact. Lumbar spine: There are 5 nonrib-bearing lumbar vertebral bodies. Normal sagittal alignment. Vertebral body heights are maintained. No significant intervertebral disc space narrowing. Sacroiliac joints are intact. Right hip: Normal alignment of the right hip. Right hip cartilage space is maintained. No displaced fracture or dislocation. Left hip: Normal alignment of the left hip. Left hip cartilage space is maintained. No displaced fracture or dislocation. XR/XR lumbar spine 2-3V IMPRESSION: As above.
--- NOTE | ~2023-08-14 | XR_ITS ---
EXAMINATION: XR CERVICAL SPINE XR THORACIC SPINE XR LUMBAR SPINE XR LEFT HIP XR RIGHT HIP CLINICAL INFORMATION: History of cancer. Headaches. Bilateral hip pain. Neck and back pain. COMPARISON: 11/30/2022 TECHNIQUE: AP, bilateral oblique and open-mouth odontoid views of the cervical spine. AP, lateral and swimmer's views of the thoracic spine. AP and lateral views of the lumbar spine. AP and frog-leg lateral views of each hip. FINDINGS: Cervical spine: The lateral masses are symmetric. No significant neural foraminal narrowing. Imaged lung apices are clear. There is a round peripherally calcified density projecting over the thoracic inlet measuring 2.0 x 1.9 cm. This is seen on the 11/30/2022 chest x-ray. Thoracic spine: There are 12 rib-bearing thoracic vertebral bodies. Normal alignment. Vertebral body heights and intervertebral disc spaces are maintained. Pedicles are intact. Lumbar spine: There are 5 nonrib-bearing lumbar vertebral bodies. Normal sagittal alignment. Vertebral body heights are maintained. No significant intervertebral disc space narrowing. Sacroiliac joints are intact. Right hip: Normal alignment of the right hip. Right hip cartilage space is maintained. No displaced fracture or dislocation. Left hip: Normal alignment of the left hip. Left hip cartilage space is maintained. No displaced fracture or dislocation. XR/XR hip LT min 2V IMPRESSION: As above.
--- NOTE | ~2023-08-14 | XR_ITS ---
EXAMINATION: XR CERVICAL SPINE XR THORACIC SPINE XR LUMBAR SPINE XR LEFT HIP XR RIGHT HIP CLINICAL INFORMATION: History of cancer. Headaches. Bilateral hip pain. Neck and back pain. COMPARISON: 11/30/2022 TECHNIQUE: AP, bilateral oblique and open-mouth odontoid views of the cervical spine. AP, lateral and swimmer's views of the thoracic spine. AP and lateral views of the lumbar spine. AP and frog-leg lateral views of each hip. FINDINGS: Cervical spine: The lateral masses are symmetric. No significant neural foraminal narrowing. Imaged lung apices are clear. There is a round peripherally calcified density projecting over the thoracic inlet measuring 2.0 x 1.9 cm. This is seen on the 11/30/2022 chest x-ray. Thoracic spine: There are 12 rib-bearing thoracic vertebral bodies. Normal alignment. Vertebral body heights and intervertebral disc spaces are maintained. Pedicles are intact. Lumbar spine: There are 5 nonrib-bearing lumbar vertebral bodies. Normal sagittal alignment. Vertebral body heights are maintained. No significant intervertebral disc space narrowing. Sacroiliac joints are intact. Right hip: Normal alignment of the right hip. Right hip cartilage space is maintained. No displaced fracture or dislocation. Left hip: Normal alignment of the left hip. Left hip cartilage space is maintained. No displaced fracture or dislocation. XR/XR hip RT min 2V IMPRESSION: As above.
[2023-08-14 15:11] VITALS: BP 132/82; PULSE 90; O2SAT 96
[2023-08-14 15:15] VITALS: BP 91/55; PULSE 81; RESP 18; TEMP 36.8; O2SAT 97; BMI 32.6
--- NOTE | 2023-08-14 15:41 | PC.NURSE ---
Patient reports is having thoughts of self harm. Reports that she thought about taking a large knife and cutting her carotid so that she would bleed out. Reports she feels lonely because her works at night and sleeps during the day. Reports hx of brain cancer and seizure disorder
--- NOTE | 2023-08-14 15:59 | MHC.CARE ---
CARE Team received a call from [facility] co-response, Pt was assessed in the community and found IPLOC. Pt reported SI with a plan to overdose on rx medication. Pt has no current mental health providers and no current medications. Pt has all medical providers in the [facility]. Pt has hx of brain tumors.
--- NOTE | 2023-08-14 16:21 | PC.NURSE ---
1:1 at bedside, dwight at bedside reporting that patient stating that patient does not usually stutter and the stuttering has just recently started
--- NOTE | 2023-08-14 17:29 | ECG_ITS ---
Test Reason : PSYCH Blood Pressure : / mmHG Vent. Rate : 077 BPM Atrial Rate : 077 BPM P-R Int : 178 ms QRS Dur : 076 ms QT Int : 438 ms P-R-T Axes : 038 070 106 degrees QTc Int : 495 ms Normal sinus rhythm with sinus arrhythmia T wave abnormality, consider anterior ischemia Prolonged QT Abnormal ECG When compared with ECG of 30-NOV-2022 11:28, T wave inversion more evident in Anterior leads Referred By: Ayaka Murrell Electronically Signed By:JOCELYN ALEX
--- NOTE | 2023-08-14 17:39 | ED_ITS ---
HPI - Psych General Chief Complaint: Psychiatric Symptoms Stated Complaint: SI STATEMENTS,CALM/COOP PER EMS Time Seen by Provider: 08/14/23 16:11 Source: patient, family and EMS Mode of arrival: EMS Limitations: no limitations History of Present Illness HPI Narrative: Patient comes to the emergency room accompanied by her sister. Patient has had suicidal thoughts, patient said that she was planning to caught her carotids with a knife so she would bleed out. Patient's sister is at bedside, patient has history of brain tumors in 2019, status post resection, chemo and radiation. According to the family, the patient has had new behaviors such as intermittent stuttering and worsening headaches. This has been going on for about 3 months now. Patient has an MRI scheduled. However, due to phobias, when the patient goes to her MRI appointment, she ends up getting scared and rejecting it. At this time, patient has no stuttering Related Data Home Medications ?Medication ?Instructions ?Recorded ?Confirmed No Known Home Meds 08/14/23 08/14/23 Allergies Allergy/AdvReac Type Severity Reaction Status Date / Time pineapple Allergy Unknown Verified 08/14/23 15:29 levetiracetam [From Keppra] AdvReac Agitated Verified 08/14/23 15:30 Review of Systems 2 Review of Systems: Constitutional : No Weight loss, No Fever, No Chills, No Night Sweats, No Fatigue, No Malaise ENT/Mouth : No Hearing loss, No Ear Pain, No Nasal Congestion, No Sinus Pain, No Hoarseness, No sore throat, No Rhinorrhea, No Swallowing Difficulty Eyes: No Eye Pain, No Swelling, No Redness, No Foreign Body, No Discharge, No Vision Changes Cardiovascular : No Chest Pain, No SOB, No Dyspnea on Exertion, No Orthopnea, No Edema, No Palpitations Respiratory : No Cough, No Sputum, No Wheezing, No Smoke Exposure, No Dyspnea Gastrointestinal : No Nausea, No Vomiting, No Diarrhea, No Constipation, No abdominal Pain, No Hematochezia, No Melena Genitourinary : no irregular bleeding, No Dysuria, No Urinary Frequency, No Hematuria, No Urinary Incontinence, No Urgency, No Flank Pain, No Urinary Flow Changes, No Hesitancy Musculoskeletal : No joint pain, No Myalgias, No Joint Swelling Skin : No Skin Lesions, No rash Neuro : No Weakness, No Numbness, No Paresthesias, No Loss of Consciousness, per family intermittent stuttering and more headaches Psych : Patient admits to suicidal thoughts Heme/Lymph: No Bruising, No Bleeding,No Lymphadenopathy Endocrine : No Polyuria, No Polydipsia, No Temperature Intolerance PMFSH Past Medical History Medical History Anxiety Syncope Astrocytoma Social History Social History (System 01/31/23 @ 11:51 by Laura Dean) Alcohol intake: current Alcohol intake frequency: holidays/special occasions only Patient Tobacco Use Status: Current someday Tobacco user Smoked in Last 30 Days: No Use of substances other than those prescribed or required for medical reasons: No Advance Directives: No Advance Directives Information Provided: No Do you have a plan to hurt others: No Plan Physical Exam 2 Vital Signs: Vital Signs: Last Vital Signs Temp 97.9 F 08/14/23 19:23 Pulse 77 08/14/23 19:23 Resp 18 08/14/23 19:23 BP 102/55 L 08/14/23 19:23 Pulse Ox 98 08/14/23 19:23 O2 Del Method Room Air 08/14/23 19:23 BMI result Body Mass Index 32.6 Const: Other: Appearance: Alert. Oriented X3. No acute distress. Eyes: Pupils equal, round and reactive to light. ENT: Pharynx normal. Neck: Normal inspection. Neck supple. No lymph nodes noted. No crepitus CVS: Normal heart rate and rhythm. Pulses normal. Normal S1 and S2 Respiratory: No respiratory distress. Breath sounds normal. No Wheezing. No rales Abdomen: Soft and nontender. No rigidity. No distention. Skin: Skin warm and dry. Normal skin color. Normal skin turgor. Extremities: No lower extremity edema. No Lacerations. No Rash Neuro: Oriented X 3. No motor deficit. No sensory deficit. Moving all extremities. No slurred speech. CN 2 through 12 grossly intact Psych: calm, cooperative, normal affect NIH Stroke Scale Internal: Initial- Upon Arrival Level of Consciousness: Alert Level of Consciousness Questions: Answers both questions correctly Level of Consciousness Commands: Performs both tasks correctly Best Gaze: Normal Visual: No visual loss Facial Palsy: Normal Motor Arm (Right): No drift Motor Arm (Left): No drift Motor Leg (Right): No drift Motor Leg (Left): No drift Limb Ataxia: Absent Sensory: Normal Best Language: No aphasia Dysarthia: Normal Extinction and Inattention: No abnormality Score: 0 Course Course Course Narrative: -I discussed the patient's situation with the MRI technicians. At this time, it is not an immediate emergency to get an MRI done, today the MRI can not be accommodated but in the morning, if the patient is still here, they can try to accommodate the patient if she is willing to get the MRI done, but no promises. -I discussed with the patient her family that in the meantime we can go ahead and start with a CT scan of the brain with contrast, to rule out any acute pathology that may need emergent treatment. The patient and family agree with plan Medications Administered Discontinued Medications Generic Name Dose Route Start Last Admin Trade Name Freq PRN Reason Stop Dose Admin Iohexol 85 ml 08/14/23 18:59 08/14/23 18:59 Iohexol 350 Mg/Ml 75 Ml Infus..Btl IV 08/14/23 19:00 85 ml ONCE ONE Administration Lorazepam 1 mg 08/14/23 17:42 08/14/23 18:09 Lorazepam 1 Mg Tablet PO 08/14/23 17:43 1 mg ONCE ONE Administration Medical Decision Making Medical Decision Making [facility] Narrative: -my interpretation of labs: Hematology at baseline, chemistry within normal limits your negative, urine toxicology negative, ETOH negative -patient is on a Section 12, waiting to be seen by the care team. Differential Diagnosis Differential Diagnoses: The differential diagnosis associated with the presentation includes (Anxiety, depression a brain mass) Admission/Observation Consideration of admission/observation: Escalation of care including admission/observation considered (Patient is on a Section 12 under physician observation, waiting to be seen by the care team.) Lab Data [facility] Lab Attestation statement: I reviewed the patient's lab results. 08/14/23 17:55 08/14/23 17:55 Labs: Lab Results 08/14/23 08/14/23 Range/Units 17:55 18:10 WBC 4.4 L (4.8-10.8) X10*3/uL RBC 4.50 (4.20-5.50) X10*6/uL Hgb 12.6 (12.0-16.0) g/dl Hct 35.1 L (37.0-47.0) % MCV 78.0 L (80.0-98.0) fL MCH 28.0 (27.0-33.0) pg MCHC 35.9 H (31.0-35.0) g/dl RDW 13.1 (11.0-16.0) % Plt Count 229 D (160-400) X10*3/uL MPV 11.0 (9.4-12.3) fL Immature Gran % (Auto) 0.5 H (0.0-0.4) % Neut % (Auto) 35.1 L (45-73) % Lymph % (Auto) 47.7 H (20-40) % Cooper % (Auto) 7.2 (2-11) % Eos % (Auto) 7.7 H (0-4) % Baso % (Auto) 1.8 (0-2) % Lymph # (Auto) 2.1 (1.2-4.9) X10*3/uL Cooper # (Auto) 0.3 (0.1-1.2) X10*3/uL Eos # (Auto) 0.3 (0.0-0.4) X10*3/uL Baso # (Auto) 0.1 (0.0-0.2) X10*3/uL Abs Immat Gran (auto) 0.02 (0.00-0.03) X10*3/uL Absolute Neuts (auto) 1.6 L (2.0-8.3) x10*3/uL Absolute Nucleated RBC 0.000 (0.0-0.012) X10*3/uL Nucleated RBC % (auto) 0.0 (0.0-0.2) /100WBC PT 11.7 (11.1-13.3) SEC INR 1.0 (0.9-1.1) Sodium 137 (135-145) mmol/L Potassium 4.3 (3.3-5.1) mmol/L Chloride 101 (96-108) mmol/L Carbon Dioxide 27 (22-29) mmol/L Anion Gap 13 (12-20) BUN 6 L (9-16) mg/dL Creatinine 0.75 (0.5-1.4) mg/dL Estim Creat Clear Calc 110.8 Estimated GFR > 60 Random Glucose 98 (60-115) mg/dL Calcium 9.7 (8.4-10.2) mg/dL Total Bilirubin 0.5 (0.0-1.0) mg/dL Direct Bilirubin 0.1 (0.0-0.5) mg/dL AST 38 H (5-31) U/L ALT 31 (0-31) U/L Alkaline Phosphatase 98 (39-117) U/L Troponin I High Sens < 2.7 (<3.5-17.0) ng/L Total Protein 7.4 (6.5-8.0) g/dL Albumin 3.9 (3.5-5.0) g/dL Urine Color Yellow Urine Appearance Clear Urine pH 6.0 (5.0-9.0) Ur Specific [place] 1.020 (1.005-1.025) Urine Protein Negative (Neg-Trace) mg/dL Urine Glucose (UA) Negative (Negative) mg/dL Urine Ketones Negative (Negative) mg/dL Urine Blood Negative (Negative) Urine Nitrite Negative (Negative) Ur Leukocyte Esterase Negative (Negative) Urine Opiates Screen Not Detected (Not Detect) Ur Buprenorphine Scrn Not Detected (Not Detect) ng/mL Ur Oxycodone Screen Not Detected (Not Detect) ng/mL Urine Methadone Screen Not Detected (Not Detect) ng/mL Urine Fentanyl Screen Not Detected (Not Detect) Ur Barbiturates Screen Not Detected (Not Detect) Ur Phencyclidine Scrn Not Detected (Not Detect) Ur Amphetamines Screen Not Detected (Not Detect) U Benzodiazepines Scrn Not Detected (Not Detect) Urine Cocaine Screen Not Detected (Not Detect) U Marijuana (THC) Screen Not Detected (Not Detect) Ethyl Alcohol < 10 mg/dL Critical Care Time Critical Care Time Total Critical Care Time: 40 Attestation: I have personally provided critical care time. Time includes review of lab data, radiology results, discussion with consultants, and monitoring for potential decompensation. Intervention performed as documented. Discharge Plan Discharge Clinical Impression: Suicidal ideation Patient Disposition: Still a Patient Prescriptions: No Action No Known Home Meds Interventions: [place]-Suicide Risk Severity Scale Last Done: 08/14/23 15:33 Print Language: Syrian
[2023-08-14 17:42] VITALS: BP 92/59; PULSE 84; RESP 18; O2SAT 98
[2023-08-14 18:02] LABS: MANUAL DIFF FLAG NO
[2023-08-14] MEDS: LORazepam 1 MG TABLET PO (18:09)
[2023-08-14 18:23] LABS: Appearance Urine Clear; Color Urine Yellow; Glucose Urine UA Negative (Negative); Leukocyte Esterase Urine Negative (Negative); Nitrite Urine Negative (Negative); Urine Blood Negative (Negative); Urine Ketones Negative (Negative); Urine Protein Negative (Neg-Trace)
[2023-08-14 18:26] LABS: Alanine Aminotransferase 31 U/L (0-31); Albumin Level 3.9 g/dL (3.5-5.0); Alkaline Phosphatase 98 U/L (39-117); Anion Gap 13 (12-20); Aspartate Amino Transferase 38 U/L (5-31); Bilirubin Direct 0.1 mg/dL (0.0-0.5); Bilirubin Total 0.5 mg/dL (0.0-1.0); Blood Urea Nitrogen 6 mg/dL (9-16); Calcium 9.7 mg/dL (8.4-10.2); Carbon Dioxide 27 mmol/L (22-29); Chloride 101 mmol/L (96-108); Creatinine Clr Calc Pharmacy 110.8; Estimated Glomerular Filt Rate > 60; Ethanol < 10 mg/dL; Glucose Random 98 mg/dL (60-115); Potassium 4.3 mmol/L (3.3-5.1); Sodium 137 mmol/L (135-145); Total Protein 7.4 g/dL (6.5-8.0)
[2023-08-14 18:27] LABS: Prothrombin Time 11.7 SEC (11.1-13.3)
[2023-08-14 18:31] LABS: Troponin-I High Sensitivity < 2.7 ng/L (<3.5-17.0)
[2023-08-14 18:32] LABS: Amphetamine Screen Urine Not Detected (Not Detect); Barbiturates, Urine Not Detected (Not Detect); Benzodiazepines Screen Urine Not Detected (Not Detect); Buprenorphine Scr Not Detected (Not Detect); Cannabinoid Screen Urine Not Detected (Not Detect); Cocaine Screen Urine Not Detected (Not Detect); Fentanyl, urine Not Detected (Not Detect); Methadone Screen, Urine Not Detected (Not Detect); Opiate Screen Urine Not Detected (Not Detect); Oxycodone Screen Urine Not Detected (Not Detect); Phencyclidine Screen Urine Not Detected (Not Detect)
[2023-08-14] MEDS: iohexoL 350 MG/ML 75 ML INFUS..BTL 85 ML IV (18:59)
[2023-08-14 19:04] LABS: Basophils Absolute Auto 0.1 X10*3/uL (0.0-0.2); Basophils Percent Auto 1.8 % (0-2); Eosinophils Absolute Auto 0.3 X10*3/uL (0.0-0.4); Eosinophils Percent Auto 7.7 % (0-4); Hematocrit 35.1 % (37.0-47.0); Hemoglobin 12.6 g/dl (12.0-16.0); Imm Gran Abs Auto 0.02 X10*3/uL (0.00-0.03); Imm Gran Pct Auto 0.5 % (0.0-0.4); Lymphocytes Absolute Auto 2.1 X10*3/uL (1.2-4.9); Lymphocytes Percent Auto 47.7 % (20-40); Mean Corpuscular HGB Conc 35.9 g/dl (31.0-35.0); Monocytes Absolute Auto 0.3 X10*3/uL (0.1-1.2); Monocytes Percent Auto 7.2 % (2-11); Neutrophils Absolute Auto 1.6 x10*3/uL (2.0-8.3); Neutrophils Percent Auto 35.1 % (45-73); Platelet Count 229 X10*3/uL (160-400); Red Cell Distribution Width 13.1 % (11.0-16.0); White Blood Count 4.4 X10*3/uL (4.8-10.8)
--- NOTE | 2023-08-14 19:22 | PC.NURSE ---
this rn assumed care of pt, pt resting in stretcher, no acute distress noted. 1:1 sitter at bedside, plan of care continues.
[2023-08-14 19:23] VITALS: BP 102/55; PULSE 77; RESP 18; TEMP 36.6; O2SAT 98
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
--- NOTE | 2023-08-15 05:51 | PC.NURSE ---
Patient slept through the night, no distress observed/reported, no concerning behavior issues, patient was assessed by [facility] in the community with disposition section 12 inpatient bed search, med rec completed/currently not on any medication, VSS, appetite good, will continue to monitor
[2023-08-15 06:38] VITALS: BP 107/62; PULSE 75; RESP 17; TEMP 36.4; O2SAT 97
--- NOTE | 2023-08-15 07:45 | PC.NURSE ---
Assumed care of patient at 0645, patient up, walking around BH pod with steady gait. Patient walked over to phone, to talk with family member. Once off the phone, patient stood up and told staff she needs to be carried to room as she cannot walk. Staff informed her that she is capable of walking and is able to go back to her room if she pleases. patient exclaiming that she cannot walk and has back and leg pains. Patient then proceeded to walk back to her room without issue. Patient then approached nurses station stating she needs help moving her tray onto her lap while in bed. Staff encouraged patient to be independent however patient then proceeded to sigh loudly, sit in bed and eat. Continue plan of care for inpatient bedsearch
[2023-08-15] MEDS: Acetaminophen 325 MG TABLET 650 MG PO ×2 (08:43→21:45)
[2023-08-15] MEDS: Ibuprofen 400 MG TABLET PO (08:43)
--- NOTE | 2023-08-15 08:55 | PC.NURSE ---
patient reporting increased back and leg pain that she relays is chronic, requesting ibuprofen and tylenol. 400mg Ibuprofen and 650mg tylenol given per MAR
--- NOTE | 2023-08-15 09:58 | PC.NURSE ---
Patient's visted with patient for approximately 20 minutes, states he will return later with coloring pages for patient. Patient ambulates with steady gait to the nurses station, reporting that someone called her angry behind her back and that that upset her. This RN informed patient that no one is talking about her. Patient continues to claim that staff is talking about her, then proceeded to apologize to staff. Patient then ambulated back to her room and began yelling out, then asked for ISSAC Leung to come in to her room. When Madhu approached the patient, the patient stated my is going to hurt my kids because of you . Patient aware is returning back to ED later with art supplies. Patient now sitting coloring in no apparent distress
--- NOTE | 2023-08-15 11:49 | ECG_ITS ---
Test Reason : incr qtc Blood Pressure : / mmHG Vent. Rate : 095 BPM Atrial Rate : 095 BPM P-R Int : 154 ms QRS Dur : 082 ms QT Int : 426 ms P-R-T Axes : 048 081 119 degrees QTc Int : 535 ms Normal sinus rhythm T wave abnormality, consider anterolateral ischemia Prolonged QT Abnormal ECG When compared with ECG of 14-AUG-2023 17:42, QT has lengthened Referred By: Payam Hancock Electronically Signed By:JOCELYN ALEX
--- NOTE | 2023-08-15 13:03 | PC.NURSE ---
Pt admitted from [facility], transported in via ambulance. Pt was on the phone with sister and sister was concerned pt had a seizure. Pt has a hx of brain tumor, including lobectomy, and radiation in 2019. Pt has not followed up with MRIs, reporting she freaks out and does not follow through. Pt stating she has been having headaches recently (though not now) and has had some stuttering, which her and sister are worried is a symptom of seizures. Pt initially reported SI with plans to cut carotid artery. Pt wanted to bleed out in bed and wanted to find her. Pt cooperative with admission. Has problems with short term memory and concentration. Pt does report having a PCP, but states on no current medication. No drug/ETOH use. Pt reports one prior admit to inpatient psych (remembers being at [facility]), but pt has had more than one admission. Pt does have some concern about safety with current , reporting she wants to divorce him but scared he would get the kids. He gets mad very easy and he kicks the cat . Pt also reporting she previously had a locked box for meds. Reporting psych inpatient hospitalization was because she overdosed on meds. Pt is hoping staff will get her a lock box for her kitchen knives, as that is her concern at the moment.
[2023-08-15 13:25] VITALS: BP 91/65; PULSE 77; RESP 16; O2SAT 98
[2023-08-15 20:00] VITALS: PULSE 95; TEMP 36.2; O2SAT 96
[2023-08-15] MEDS: traZODone HCL 50 MG TABLET PO (21:45)
[2023-08-16 08:00] VITALS: BP 140/65; PULSE 87; RESP 18; TEMP 36.9; O2SAT 92
[2023-08-16] MEDS: Acetaminophen 325 MG TABLET 650 MG PO (14:48)
[2023-08-16] MEDS: Albuterol Sulfate 90 MCG 8 GM INHALER 2 PUFF INHALE (16:33)
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
[2023-08-16 20:00] VITALS: BP 118/73; PULSE 89; RESP 16; TEMP 36.5; O2SAT 99
[2023-08-17 07:00] VITALS: BMI 32.1
[2023-08-17 08:00] VITALS: BP 139/68; PULSE 85; RESP 17; TEMP 36.4; O2SAT 98
[2023-08-17] MEDS: Acetaminophen 325 MG TABLET 650 MG PO ×2 (13:11→20:08)
--- NOTE | 2023-08-17 16:18 | HO.PSYCHPN ---
Subjective Subjective Date of Service: 08/17/23 Reason For Visit: SI hx of brain tumor tx Subjective Notes: Conditional Voluntary and 3 Day (08/18/23) Healthcare Proxy: No Guardianship: No Medical Problems Affecting Mental Status: No Interim History: TDN to 08/17. Pt intends to discharge. Denies SI, plan or intent. I just want a therapist. Care discussed with.... 1.Mother Roberto [phone]. Concerns about ongoing hip/back pain-never assessed (xrays ordered today). Pt off meds for 3 months with no therapist, no med appt and appears to be deteriorating, not at her baseline, although this is an accumulation of 4 years of illness. Reports hx of ADD, describes pt now as a teen with ADD on steroids . Pt has been overwhelmed with pain, headache, stuttering. Mother is concerned for recurrence of cancer. Pt recently unable to completed her scheduled MRI due to fear of contrast. Mother will go with pt for next appt. Encouraged mother to tw pt about retracting TDN and staying longer for treatment. 2. Serene Crowley [phone]- Review of plan of care and discussion with pt's mother. 3. not contacted as he works nights and sleeps during the day. 4. [facility]- Nori Bain NP , Team ordered a repeat MRI that pt could not completed due to pt refusal. What they saw on MRI showed no recurrence of cancer and they doubt hip pain/back pain is cancer related. Neuro eval in ER 06/27 negative with negative CAT for recurrence as well. Pt has missed several appts with Dr. Nichols, next scheduled for October. Their team approves of Lamictal/SSRI combination to begin. Pt would be safe with this combo if chemo needed to be restarted. Medication Compliance: Yes Side effects from medications: No Attending Groups: Intermittent Review of Systems Acute medical concerns: No Medical Review of Systems: unchanged Review of Systems Review of Systems neck pain back pain hip pain Mental Status Exam Mental Status Exam Patient Appearance: Appropriate Patient Orientation: Person, Place, Time and Situation Level of Consciousness: Alert Patient Behavior: Appropriate, Talkative, Cooperative, Anxious and Good Eye Contact Mood Description: Depressed and Anxious Affect Description: Anxious Patient Cognition Impaired: No Ability to Follow Directions: Good Speech Pattern: Spontaneous Speech and Stuttering (initially, appears to be anxiety related) Memory Description: Intact Hallucinations: None Delusions: Not Present Thought Process: Rumination Thought Content: positive for Perseveration and positive for Tangential Depressive Symptoms: Increased Anxiety and Increased Irritability Abnormal Motor Activity Signs and Symptoms: Restlessness Judgement: Good Diagnostics Vital Signs (24Hr): Vital Signs - 24 hr 08/16/23 20:00 08/17/23 08:00 Temperature 97.7 F 97.6 F Pulse Rate 89 85 Respiratory Rate 16 17 Blood Pressure 118/73 139/68 Pulse Oximetry 99 98 Oxygen Delivery Method Room Air Room Air BMI result Body Mass Index 32.6 Labs 08/14/23 17:55 08/14/23 17:55 Imaging Radiology Impressions: ITS Impressions Head CT 08/14/23 19:12 IMPRESSION: No acute intracranial pathology. Surgical changes status post partial right temporal lobectomy. There is a stable area of low attenuation within the anterior/inferior right frontal lobe, likely an area of chronic ischemia/infarction. This may also be the result of remote trauma. Medications Medications Current Medications Acetaminophen (Acetaminophen 325 Mg Tablet) 650 mg PO Q6H PRN PRN Reason: Headache/Pain Mild Scale (1-3) Last Admin: 08/17/23 13:11 Dose: 650 mg Al Hydroxide/Mg Hydroxide (Magnesium Hydrox/Alum Hydrox 30 Ml Oral.Susp) 30 ml PO Q6H PRN PRN Reason: Heartburn/Nausea Albuterol Sulfate (Albuterol Sulfate 90 Mcg 8 Gm Inhaler) 2 puff INHALE RQ4H PRN PRN Reason: wheeze Hydroxyzine HCl (Hydroxyzine Hcl 25 Mg Tablet) 25 mg PO Q6H PRN PRN Reason: Anxiety Lamotrigine (Lamotrigine 25 Mg Tablet) 25 mg PO BEDTIME OMID Lorazepam (Lorazepam 1 Mg Tablet) 1 mg PO Q6H PRN PRN Reason: anxiety/restlessness Magnesium Hydroxide (Milk Of Magnesia 30 Ml Oral.Susp) 30 ml PO DAILY PRN PRN Reason: Constipation Sertraline HCl (Sertraline Hcl 25 Mg Tablet) 12.5 mg PO DAILY OMID Trazodone HCl (Trazodone Hcl 50 Mg Tablet) 50 mg PO BEDTIME MRX1 PRN PRN Reason: Insomnia Last Admin: 08/15/23 21:45 Dose: 50 mg Allergies Allergies Allergy/AdvReac Type Severity Reaction Status Date / Time pineapple Allergy Unknown Verified 08/14/23 15:29 levetiracetam [From [facility]] AdvReac Agitated Verified 08/14/23 15:30 Assessment & Plan Assessment & Plan (1) Depression: Status: Acute Code(s): F32.A - Depression, unspecified (2) Suicidal ideation: Status: Acute Code(s): R45.851 - Suicidal ideations Plan 37 yo female reporting depression, SI with plans to overdose, sustain a fall and head injury, overdose on medications, or cut her carotids. Identifies several relationship, parenting, medical stressors. Also identifies new medical sx of headache, stuttering for ~90 days. MRI pending. Pt asks for regular psychotherapy, medications and added support at home. Plan: Encourage milieu involvement. Collateral contact with OP Cancer team at [facility] Collateral contact with family Trial of medications after consultation with OP team. Pt has signed a three day notice of intent. 08/17/23: Consults with family and oncology Lamictal 25 mg HS Sertraline 12.5 mg a.m. TDN to 08/18/23. Pt planning to discharge Informed Consent: further education needed Reason for continued inpatient stay Substantial Risk for: rapid decompensation and med/psych decompensation Time Spent With Patient Time: Total time managing care of this patient today ____ minutes.
[2023-08-17 20:00] VITALS: BP 123/71; PULSE 93; RESP 16; TEMP 35.7; O2SAT 99
[2023-08-17] MEDS: lamoTRIgine 25 MG TABLET PO (20:08)
[2023-08-18] MEDS: Acetaminophen 325 MG TABLET 650 MG PO (06:43)
[2023-08-18 08:00] VITALS: BP 114/60; PULSE 88; RESP 16; TEMP 36.5; O2SAT 97
[2023-08-18] MEDS: Sertraline HCL 25 MG TABLET 12.5 MG PO (09:07)
--- NOTE | 2023-09-21 15:54 | PM.PSYDC ---
DS: Providers Provider Date of Service: 08/18/23 Date of admission: 08/15/23 10:39 Date of discharge: 08/18/23 Primary care physician: Unknown Physician Admitting clinician: Marina Gray Attending physician on admission: Payam Hancock Attending physician on discharge: Payam Hancock Discharging clinician: Marina Gray DS: Diagnosis Discharge Diagnosis (1) Depression: Status: Acute (2) Suicidal ideation: Status: Resolved DS: Medications Discharge Medications Home Medications: Previous Rx's ?Medication ?Instructions ?Recorded albuterol sulfate 90 mcg/actuation 2 puff inhalation RQ4H PRN wheeze 08/18/23 aerosol inhaler (Ventolin HFA) #1 inhaler lamotrigine 25 mg tablet 25 mg PO BEDTIME #30 tabs 08/18/23 sertraline 25 mg tablet 12.5 mg (1/2 x 25 mg) PO DAILY #15 08/18/23 tabs Mental Status Exam Mental Status Exam Patient Appearance: Appropriate Patient Orientation: Person, Place, Time and Situation Level of Consciousness: Alert Patient Behavior: Appropriate, Talkative, Cooperative, Anxious and Good Eye Contact Mood Description: Depressed and Anxious Affect Description: Anxious Patient Cognition Impaired: No Ability to Follow Directions: Good Speech Pattern: Spontaneous Speech and Stuttering (initially, appears to be anxiety related) Memory Description: Intact Hallucinations: None Delusions: Not Present Thought Process: Rumination Thought Content: positive for Perseveration and positive for Tangential Depressive Symptoms: Increased Anxiety and Increased Irritability Abnormal Motor Activity Signs and Symptoms: Restlessness Judgement: Good Data Imaging Diagnostic Imaging Impressions Head CT 08/14/23 19:12 IMPRESSION: No acute intracranial pathology. Surgical changes status post partial right temporal lobectomy. There is a stable area of low attenuation within the anterior/inferior right frontal lobe, likely an area of chronic ischemia/infarction. This may also be the result of remote trauma. Cervical Spine X-Ray 08/17/23 15:12 IMPRESSION: As above. Hip X-Ray 08/17/23 15:12 IMPRESSION: As above. Hip X-Ray 08/17/23 15:12 IMPRESSION: As above. Lumbar Spine X-Ray 08/17/23 15:12 IMPRESSION: As above. Thoracic Spine X-Ray 08/17/23 15:12 IMPRESSION: As above. DS: Summary Hospital Course Hospital Course: Admission to adult psychiatry for exacerbation of depressive sx with SI in the context of psychosocial/medical stressors including consideration of divorce, daughter with behavioral issues which pt finds overwhelming at times, reports of increase in headaches and stuttering with history of right frontal lobe brain cancer with chemotherapy which ended 2.5 years ago along with pt being unable to secure referrals for psychotherapy and psychopharmacology for out patient treatment. Pt signed a three day notice upon admission. Connection was made with pt's cancer team with [facility] who report no progression of disease upon recent MRI and with upcoming appt and repeat MRI being scheduled. Med trials proposed were reviewed and approved with this team. Lamictal and Sertraline were initiated. Pt was referred to [facility] for out pt psychiatric care and to [facility] Bridge program with Jailene Crow APRN until she is secure with [facility]. Status at Discharge Functional status at discharge: independent ambulation Overall status at discharge: patient is back to baseline Time Spent with Patient Time attestation: Total time managing care of this patient today ____ minutes. Time spent: Less than 30 minutes Discharge Plan Discharge Anticipated Discharge Date/Time: 08/18/23 12:00 Patient Disposition: Home, Self-Care Discharge Diagnosis: Depression Referrals: Eryn Watkins: [facility] ([facility]) [Other] - 08/25/23 11:00 am (Initial diagnostic evaluation for Therapy Appointment in person at [facility]) Edwige Hudson: [facility]ib[facility]ater ([facility]) [Other] - 09/26/23 9:00 am (Initial psychiatric evaluation for Psychiatric medication management Appointment will be by telephone. Provider will call you on dayu of appointment.) Jailene Crow APRN-BC [Other] - 08/28/23 2:00 pm (Bridge Appointment with psychiatric medication provider ) Bhumika Dominguez MD [Physician] - 08/29/23 3:15 pm (in office) Discharge Medications: New lamotrigine 25 mg Tablet 25 mg PO BEDTIME Qty: 30 0RF sertraline 25 mg Tablet 12.5 mg PO DAILY Qty: 15 0RF albuterol sulfate [Ventolin HFA] 90 mcg/actuation Hfa Aerosol Inhaler 2 puff inhalation RQ4H PRN (Reason: wheeze) Qty: 1 0RF Discharge Orders: Discharge Order (Routine); Ordered 08/18/23 Ordered By: Marina Gray Diet: Regular diet Activity on Discharge: As tolerated Stand Alone Forms: Patient Portal Discharge page Print Language: Japanese Care Plan Goals: Mood and Behavioral Stabilization Health Concerns: Mood and Behavioral Stabilization Plan of Treatment: Attend scheduled appointments Take medications as directed Assessment: Discharge via three day notice of intent Discharge Date/Time: 08/18/23 11:35
== END 2023-08-18 11:35 | disposition home or self-care (01) | DRG 754 ==
LOC: HO.ED 20:54 → HO.PM5 08-15 10:46
PROVIDERS: Emergency Medicine; Admitting Provider Psychiatry & Neurology Psychiatry; Emergency Provider Emergency Medicine; Visit Provider Clinical Nurse Specialist Psychiatric/Mental Health, Adult
DX: F32.A Depression, unspecified (principal); R45.851 Suicidal ideations; Z91.52 Personal history of nonsuicidal self-harm; Z91.51 Personal history of suicidal behavior; Z87.891 Personal history of nicotine dependence
CPT/HCPCS: 36415; 70460; 72050; 72072; 72100; 73502; 80048; 80076; 80307; 81003; 83735; 84484; 85025; 85610; 93005; 99285; Q9967

== ENCOUNTER → 2023-08-14 17:29 | Outpatient (BNV) | payer BC, MEDICARE, SELFPAY | PROVIDERS: Admitting Provider Psychiatry & Neurology Psychiatry; Emergency Provider Emergency Medicine; Visit Provider Internal Medicine | DX: I45.81 Long QT syndrome (principal); I49.8 Other specified cardiac arrhythmias | CPT/HCPCS: 93010 ==

== ENCOUNTER 2023-08-15 10:39 | Outpatient (BNV) | payer BC, MEDICARE, SELFPAY | END 2023-08-15 11:49 | PROVIDERS: Admitting Provider Psychiatry & Neurology Psychiatry; Emergency Provider Emergency Medicine; Visit Provider Internal Medicine | DX: I45.81 Long QT syndrome (principal) | CPT/HCPCS: 93010 ==

== ENCOUNTER → 2023-08-15 10:39 | Outpatient (BNV) | payer BC, MEDICARE, SELFPAY | PROVIDERS: Admitting Provider Psychiatry & Neurology Psychiatry; Emergency Provider Emergency Medicine; Visit Provider Clinical Nurse Specialist Psychiatric/Mental Health, Adult | DX: F32.2 Major depressive disorder, single episode, severe without psychotic features (principal); R45.851 Suicidal ideations | CPT/HCPCS: 90792; 99232; 99238 ==

== ENCOUNTER 2023-11-08 18:32 | Emergency (ER) | payer BC, MEDICARE, SELFPAY ==
[2023-11-08 18:43] VITALS: BP 97/63; PULSE 88; O2SAT 97; BMI 26.6
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
[2023-11-08 19:18] VITALS: BP 98/66; PULSE 88; RESP 18; TEMP 36.7; O2SAT 98
[2023-11-08 19:20] VITALS: BP 98/66; PULSE 88; RESP 18; TEMP 36.7; O2SAT 98
== END 2023-11-08 19:25 | disposition home or self-care (01) ==
PROVIDERS: Emergency Provider Emergency Medicine; PCP Nurse Practitioner Family
DX: J45.901 Unspecified asthma with (acute) exacerbation (principal); R06.02 Shortness of breath; Z79.899 Other long term (current) drug therapy
CPT/HCPCS: 99282; 99283

== ENCOUNTER 2023-12-05 23:18 | Inpatient (IN) | payer BC, MEDICARE, SELFPAY ==
[2023-12-05 23:28] VITALS: BP 105/88; BP 122/78; PULSE 78; PULSE 89; RESP 17; TEMP 36.6; O2SAT 10; O2SAT 98; BMI 29.3
--- NOTE | 2023-12-05 23:43 | MHC.EDTECH ---
pt changed over to hospital clothing. Pt belongings sent with security and placed in locker C-1. pt has 1:[address] care on going
--- NOTE | 2023-12-05 23:44 | PC.NURSE ---
pt biba from home a&ox4, respirations even and unlabored. pt reporting thoughts of SI with plan. pt reports she attempted to end her life by placing plastic bag over head and taping it. pt reports she attempted to call the SI hotline and was put on hold. pt reports she has had these thoughts for a while because she is lonely and her does not care about her and works all the time and she states her kids hate her. security at bedside, pt changed into green attire. sitter at bedside. belongings placed in c-1.
[2023-12-06 00:10] LABS: Basophils Absolute Auto 0.1 X10*3/uL (0.0-0.2); Basophils Percent Auto 1.6 % (0-2); Eosinophils Absolute Auto 0.5 X10*3/uL (0.0-0.4); Eosinophils Percent Auto 11.9 % (0-4); Hematocrit 35.4 % (37.0-47.0); Hemoglobin 12.5 g/dl (12.0-16.0); Imm Gran Abs Auto 0.01 X10*3/uL (0.00-0.03); Imm Gran Pct Auto 0.3 % (0.0-0.4); Lymphocytes Absolute Auto 1.9 X10*3/uL (1.2-4.9); Lymphocytes Percent Auto 50.1 % (20-40); MANUAL DIFF FLAG NO; Mean Corpuscular HGB Conc 35.3 g/dl (31.0-35.0); Mean Corpuscular Hemoglobin 27.1 pg (27.0-33.0); Mean Corpuscular Volume 76.8 fL (80.0-98.0); Mean Platelet Volume 10.1 fL (9.4-12.3); Monocytes Absolute Auto 0.3 X10*3/uL (0.1-1.2); Neutrophils Absolute Auto 1.1 x10*3/uL (2.0-8.3); Neutrophils Percent Auto 28.1 % (45-73); Platelet Count 176 X10*3/uL (160-400); Red Blood Count 4.61 X10*6/uL (4.20-5.50); Red Cell Distribution Width 13.4 % (11.0-16.0); White Blood Count 3.8 X10*3/uL (4.8-10.8)
[2023-12-06 00:12] LABS: Appearance Urine Clear; Color Urine Yellow; Glucose Urine UA Negative (Negative); Leukocyte Esterase Urine Negative (Negative); Nitrite Urine Negative (Negative); Specific Gravity - Urine 1.025 (1.005-1.025); Urine Blood Negative (Negative); Urine Ketones Negative (Negative); Urine Protein Trace mg/dL (Neg-Trace)
[2023-12-06 00:23] LABS: Amphetamine Screen Urine Not Detected (Not Detect); Barbiturates, Urine Not Detected (Not Detect); Benzodiazepines Screen Urine Not Detected (Not Detect); Buprenorphine Scr Not Detected (Not Detect); Cannabinoid Screen Urine Not Detected (Not Detect); Cocaine Screen Urine Not Detected (Not Detect); Fentanyl, urine Not Detected (Not Detect); Methadone Screen, Urine Not Detected (Not Detect); Opiate Screen Urine Not Detected (Not Detect); Oxycodone Screen Urine Not Detected (Not Detect); Phencyclidine Screen Urine Not Detected (Not Detect)
[2023-12-06 00:28] LABS: Alanine Aminotransferase 16 U/L (0-31); Albumin Level 3.9 g/dL (3.5-5.0); Alkaline Phosphatase 77 U/L (39-117); Anion Gap 12 (12-20); Aspartate Amino Transferase 26 U/L (5-31); Bilirubin Total 0.5 mg/dL (0.0-1.0); Blood Urea Nitrogen 6 mg/dL (9-16); Calcium 9.7 mg/dL (8.4-10.2); Carbon Dioxide 24 mmol/L (22-29); Chloride 107 mmol/L (96-108); Creatinine Clr Calc Pharmacy 81.4; Estimated Glomerular Filt Rate > 60; Ethanol < 10 mg/dL; Glucose Random 109 mg/dL (60-115); Potassium 3.7 mmol/L (3.3-5.1); Sodium 139 mmol/L (135-145); Total Protein 6.8 g/dL (6.5-8.0)
[2023-12-06 00:38] LABS: Bacteria Urine None Seen (None Seen); Hyaline Casts Urine 0-2 /LPF (0-2); RBC Urine 0-2 /HPF (0-2); Squamous Epithelial Cell Urine 0-2 /HPF (0-2); UACC Culture Trigger YES
--- NOTE | 2023-12-06 01:03 | ED.PSYCH ---
HPI - Psych General Chief Complaint: Psychiatric Symptoms Stated Complaint: SI Time Seen by Provider: 12/06/23 00:59 Source: patient and EMS Mode of arrival: EMS Limitations: no limitations History of Present Illness ED Provider: Dr. Ayaka Murrell HPI Narrative: patient comes to the emergency room via ambulance and PD on board. According to the patient, patient attempted to commit suicide by covering her head with a plastic bag and tape around her neck. Patient admits that she tried doing this. Denies HI. Patient was put on a Section 12 by PD Related Data Previous Rx's ?Medication ?Instructions ?Recorded albuterol sulfate 90 mcg/actuation 2 puff inhalation RQ4H PRN wheeze 08/18/23 aerosol inhaler (Ventolin HFA) #1 inhaler lamotrigine 25 mg tablet 25 mg PO BEDTIME #30 tabs 08/18/23 sertraline 25 mg tablet 12.5 mg (1/2 x 25 mg) PO DAILY #15 08/18/23 tabs Allergies Allergy/AdvReac Type Severity Reaction Status Date / Time pineapple Allergy Unknown Verified 12/05/23 23:36 levetiracetam [From [facility]] AdvReac Agitated Verified 12/05/23 23:36 Review of Systems Review of Systems: Constitutional : No Weight loss, No Fever, No Chills, No Night Sweats, No Fatigue, No Malaise ENT/Mouth : No Hearing loss, No Ear Pain, No Nasal Congestion, No Sinus Pain, No Hoarseness, No sore throat, No Rhinorrhea, No Swallowing Difficulty Eyes: No Eye Pain, No Swelling, No Redness, No Foreign Body, No Discharge, No Vision Changes Cardiovascular : No Chest Pain, No SOB, No Dyspnea on Exertion, No Orthopnea, No Edema, No Palpitations Respiratory : No Cough, No Sputum, No Wheezing, No Smoke Exposure, No Dyspnea Gastrointestinal : No Nausea, No Vomiting, No Diarrhea, No Constipation, No abdominal Pain, No Hematochezia, No Melena Genitourinary : no irregular bleeding, No Dysuria, No Urinary Frequency, No Hematuria, No Urinary Incontinence, No Urgency, No Flank Pain, No Urinary Flow Changes, No Hesitancy Musculoskeletal : No joint pain, No Myalgias, No Joint Swelling Skin : No Skin Lesions, No rash Neuro : No Weakness, No Numbness, No Paresthesias, No Loss of Consciousness, No Dizziness, No Headache Psych : admits to suicidal ideation Heme/Lymph: No Bruising, No Bleeding,No Lymphadenopathy Endocrine : No Polyuria, No Polydipsia, No Temperature Intolerance PMFSH Past Medical History Medical History Anxiety Syncope Astrocytoma Social History Social History Household Members: Spouse Housing: House Do you presently have visiting nurse or other home services: No Alcohol intake: current Alcohol intake frequency: holidays/special occasions only Patient Tobacco Use Status: Former Tobacco user Advance Directives: No Advance Directives Information Provided: No Do you have a plan to hurt others: No Plan service: No Sexual orientation: Straight/Heterosexual Physical Exam Vital Signs: Vital Signs: Last Vital Signs Temp 97.9 F 12/05/23 23:28 Pulse 89 12/05/23 23:28 Resp 17 12/05/23 23:28 BP 105/88 12/05/23 23:28 Pulse Ox 10 L 12/05/23 23:28 O2 Del Method Room Air 12/05/23 23:28 BMI result Body Mass Index 29.3 Const: Other: Appearance: Alert. Oriented X3. No acute distress. Eyes: Pupils equal, round and reactive to light. ENT: Pharynx normal. Neck: Normal inspection. Neck supple. No lymph nodes noted. No crepitus CVS: Normal heart rate and rhythm. Pulses normal. Normal S1 and S2 Respiratory: No respiratory distress. Breath sounds normal. No Wheezing. No rales Abdomen: Soft and nontender. No rigidity. No distention. Skin: Skin warm and dry. Normal skin color. Normal skin turgor. Extremities: No lower extremity edema. No Lacerations. No Rash Neuro: Oriented X 3. No motor deficit. No sensory deficit. Moving all extremities. No slurred speech. CN 2 through 12 grossly intact Psych: calm, cooperative, normal affect Course Course Course Narrative: patient is on a Section 12 - care team consult pending - physician observation started at 01:06 Medical Decision Making Medical Decision Making MDM Narrative: my interpretation of labs: Normal hematology, chemistry within normal limits, LFTs normal, UA normal, hCG pending - waiting for the care team to evaluate the patient. - Patient is on a one-to-one Differential Diagnosis Differential Diagnoses: The differential diagnosis associated with the presentation includes ( suicide attempt, anxiety, depression) Admission/Observation Consideration of admission/observation: Escalation of care including admission/observation considered ( patient is on a Section 12 waiting to be seen by the care team to determine patient's disposition) Lab Data MDM Lab Attestation statement: I reviewed the patient's lab results. 12/06/23 00:05 12/06/23 00:05 Labs: Lab Results 12/05/23 12/06/23 Range/Units 23:52 00:05 WBC 3.8 L (4.8-10.8) X10*3/uL RBC 4.61 (4.20-5.50) X10*6/uL Hgb 12.5 (12.0-16.0) g/dl Hct 35.4 L (37.0-47.0) % MCV 76.8 L (80.0-98.0) fL MCH 27.1 (27.0-33.0) pg MCHC 35.3 H (31.0-35.0) g/dl RDW 13.4 (11.0-16.0) % Plt Count 176 (160-400) X10*3/uL MPV 10.1 (9.4-12.3) fL Immature Gran % (Auto) 0.3 (0.0-0.4) % Neut % (Auto) 28.1 L (45-73) % Lymph % (Auto) 50.1 H (20-40) % [place] % (Auto) 8.0 (2-11) % Eos % (Auto) 11.9 H (0-4) % Baso % (Auto) 1.6 (0-2) % Lymph # (Auto) 1.9 (1.2-4.9) X10*3/uL [place] # (Auto) 0.3 (0.1-1.2) X10*3/uL Eos # (Auto) 0.5 H (0.0-0.4) X10*3/uL Baso # (Auto) 0.1 (0.0-0.2) X10*3/uL Abs Immat Gran (auto) 0.01 (0.00-0.03) X10*3/uL Absolute Neuts (auto) 1.1 L (2.0-8.3) x10*3/uL Absolute Nucleated RBC 0.000 (0.0-0.012) X10*3/uL Nucleated RBC % (auto) 0.0 (0.0-0.2) /100WBC Sodium 139 (135-145) mmol/L Potassium 3.7 (3.3-5.1) mmol/L Chloride 107 (96-108) mmol/L Carbon Dioxide 24 (22-29) mmol/L Anion Gap 12 (12-20) BUN 6 L (9-16) mg/dL Creatinine 0.79 (0.5-1.4) mg/dL Estim Creat Clear Calc 81.4 Estimated GFR > 60 Random Glucose 109 (60-115) mg/dL Calcium 9.7 (8.4-10.2) mg/dL Total Bilirubin 0.5 (0.0-1.0) mg/dL AST 26 (5-31) U/L ALT 16 (0-31) U/L Alkaline Phosphatase 77 (39-117) U/L Total Protein 6.8 (6.5-8.0) g/dL Albumin 3.9 (3.5-5.0) g/dL Urine Color Yellow Urine Appearance Clear Urine pH 5.0 (5.0-9.0) Ur Specific [place] 1.025 (1.005-1.025) Urine Protein Trace (Neg-Trace) mg/dL Urine Glucose (UA) Negative (Negative) mg/dL Urine Ketones Negative (Negative) mg/dL Urine Blood Negative (Negative) Urine Nitrite Negative (Negative) Ur Leukocyte Esterase Negative (Negative) Urine RBC 0-2 (0-2) /HPF Urine WBC 6-10 H (0-5) /HPF Ur Squamous Epith Cells 0-2 (0-2) /HPF Urine Bacteria None Seen (None Seen) Hyaline Casts 0-2 (0-2) /LPF Urine Opiates Screen Not Detected (Not Detect) Ur Buprenorphine Scrn Not Detected (Not Detect) ng/mL Ur Oxycodone Screen Not Detected (Not Detect) ng/mL Urine Methadone Screen Not Detected (Not Detect) ng/mL Urine Fentanyl Screen Not Detected (Not Detect) Ur Barbiturates Screen Not Detected (Not Detect) Ur Phencyclidine Scrn Not Detected (Not Detect) Ur Amphetamines Screen Not Detected (Not Detect) U Benzodiazepines Scrn Not Detected (Not Detect) Urine Cocaine Screen Not Detected (Not Detect) U Marijuana (THC) Screen Not Detected (Not Detect) Ethyl Alcohol < 10 mg/dL Critical Care Time Critical Care Time Critical Care Time: Yes Total Critical Care Time: 35 Attestation: I have personally provided critical care time. Time includes review of lab data, radiology results, discussion with consultants, and monitoring for potential decompensation. Intervention performed as documented. Discharge Plan Discharge Clinical Impression: Suicidal ideation Patient Disposition: Still a Patient Prescriptions: No Action lamotrigine 25 mg Tablet 25 mg PO BEDTIME Qty: 30 0RF sertraline 25 mg Tablet 12.5 mg PO DAILY Qty: 15 0RF albuterol sulfate [Ventolin HFA] 90 mcg/actuation Hfa Aerosol Inhaler 2 puff inhalation RQ4H PRN (Reason: wheeze) Qty: 1 0RF Print Language: Lao
[2023-12-06 01:12] LABS: UPreg QC Valid YES; Urine Pregnancy NEGATIVE (NEGATIVE)
--- NOTE | 2023-12-06 02:15 | PC.NURSE ---
pt at bedside searched by security. Care team at bedside speaking with pt and .
--- NOTE | 2023-12-06 03:02 | PC.NURSE ---
section 12 placed by care team at this time. plan for CV and re-eval in AM.
--- NOTE | 2023-12-06 03:12 | MHC.EDTECH ---
pt belongings removed from C-1 by security because pt wanted to bring belongings home. pt then found out she can wear personal clothes on the unit once admitted. so now clothes pt came in with staying with pt and placed back into locker with security, and pt taking cellphone home with him.
[2023-12-06 06:18] VITALS: BP 105/64; PULSE 74; RESP 17; TEMP 36.7; O2SAT 95
--- NOTE | 2023-12-06 06:45 | PC.NURSE ---
pt phone number -Sivakumar Collazo [phone]
--- NOTE | 2023-12-06 09:59 | PHA.MEDREC ---
Addendum entered by Zandra Morgan [facility] 12/06/23 10:16: reviewed Original Note: Pharmacy Consult ? Medication Reconciliation Pharmacy has completed the medication reconciliation.Spoke to patient at bedside, she was very sleepy and seemed to know her medications somewhat. Called her and he was able to confirm the medications she takes at home. Unknown last doses taken.
--- NOTE | 2023-12-06 10:50 | PC.NURSE ---
Report called to CHAYA Voss in pod for pt. transfer.
[2023-12-06 13:59] VITALS: BP 94/62; PULSE 80; RESP 16; TEMP 36.6; O2SAT 98
[2023-12-06 14:21] VITALS: BMI 34.0
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
--- NOTE | 2023-12-06 18:31 | PC.ADMIT ---
Guillermo Collazo, 38/F, admitted to M3 at 1345 from [facility] on a CV for treatment of suicidal ideation/attempt, depression and anxiety. Prior to admission, the patient reportedly engaged in a suicide attempt including taping a plastic bag around her head. Pt called the crisis and 911 prior to this attempt. Patient was subsequently brought to the [place] ED for evaluation. Patient is alert and oriented x 4, vocal, and engaged with staff following her arrival on the unit. Pt thought process at times tangential with hyperverbal speech. She also presented with possible cognitive delay, including child-like behavior. Examples include sighing and facial expressions when she didn?t get the answer she was seeking. Patient attributed her suicide attempt to ?feeling lonely? when her works nights. Pt also stated that her 12 y/o daughter told her last week that she wished the patient/mother had during a surgery several years prior. Patient appeared to lack understanding of the seriousness of her suicidal attempt, despite being a mother of two children (12 y/o girl, 7 y/o boy) and . ?I just hope it gets his attention enough to stop working nights.? However, pt acknowledged depression and anxiety and stated she hopes this admission will help get her medications adjusted. ?I have to be home by Monday though when my is off work!? Pt denied auditory or visual hallucinations. ?Sometimes I think I see ghosts in my house though.? Per patient, her sleep has been very poor and she only sleeps 1-2 hours per night. ?How would you feel not sleeping in bed with your spouse?? Pt denied current SI/HI and stated she would be able to approach staff if she begins to feel worse. 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 She also reported Astrocytoma with tumor removal in 2019 and subsequent chemo/radiation. Pt has been in remission since 2021. Lastly, patient has a reported history of seizures relating to the brain tumor. Pt denied recent falls, but placed on falls precautions due to seizure history. Pain also noted to hip, back, knees and shoulder with no known cause. ?I don?t need to go the doctor again.? Tox screen negative, but patient reported occasional marijuana use at home. Former smoker of 20 years - though only smokes ?a few puffs? a couple times a week now. Skin check performed. No wounds or open areas of skin. Patient placed on 15 minute safety checks at this time.
[2023-12-06 20:00] VITALS: BP 105/66; PULSE 80; RESP 14; TEMP 36.4; O2SAT 99
[2023-12-06] MEDS: traZODone HCL 50 MG TABLET PO (20:29)
[2023-12-06] MEDS: lamoTRIgine 25 MG TABLET PO (20:29)
[2023-12-06] MEDS: hydrOXYzine HCL 25 MG TABLET PO (20:30)
[2023-12-07 09:22] VITALS: BP 98/64; PULSE 94; RESP 16; TEMP 36.3; O2SAT 97
[2023-12-07] MEDS: Sertraline HCL 25 MG TABLET PO (09:26)
[2023-12-07] MEDS: Ibuprofen 600 MG TABLET PO ×2 (10:25→21:12)
[2023-12-07] MEDS: hydrOXYzine HCL 25 MG TABLET PO (10:25)
[2023-12-07 12:52] VITALS: BMI 33.9
--- NOTE | 2023-12-07 15:14 | P.PNPSI_ITS ---
Subjective Subjective Date of Service: 12/07/23 Reason For Visit: SI/HI Interim History: very sleepy. no questions or complaints. feels the trazodone last night was helpful and does not want to change it. per staff, tox NEG. slept 8 hours. Mental Status Exam Mental Status Exam Narrative: disheveled, poorly groomed. cooperative. lying in bed, no PMA/PMR. speech decr rate, decr amount, nml loudness and tone, incr latency. thoughts linear. affect constricted, hypo-intense, non-labile. mood bill. denies SI/SIBI/HI/AVH. Diagnostics Vital Signs (24Hr): Vital Signs - 24 hr 12/06/23 20:00 12/07/23 09:22 Temperature 97.5 F 97.4 F Pulse Rate 80 94 Respiratory Rate 14 16 Blood Pressure 105/66 98/64 Pulse Oximetry 99 97 Oxygen Delivery Method Room Air Room Air BMI result Body Mass Index 33.9 Labs 12/06/23 00:05 12/06/23 00:05 Labs: Laboratory Results - last 48 hr 12/05/23 12/06/23 23:52 00:05 WBC 3.8 L RBC 4.61 Hgb 12.5 Hct 35.4 L MCV 76.8 L MCH 27.1 MCHC 35.3 H RDW 13.4 Plt Count 176 MPV 10.1 Immature Gran % (Auto) 0.3 Neut % (Auto) 28.1 L Lymph % (Auto) 50.1 H [place] % (Auto) 8.0 Eos % (Auto) 11.9 H Baso % (Auto) 1.6 Lymph # (Auto) 1.9 [place] # (Auto) 0.3 Eos # (Auto) 0.5 H Baso # (Auto) 0.1 Abs Immat Gran (auto) 0.01 Absolute Neuts (auto) 1.1 L Absolute Nucleated RBC 0.000 Nucleated RBC % (auto) 0.0 Sodium 139 Potassium 3.7 Chloride 107 Carbon Dioxide 24 Anion Gap 12 BUN 6 L Creatinine 0.79 Estim Creat Clear Calc 81.4 Estimated GFR > 60 Random Glucose 109 Calcium 9.7 Total Bilirubin 0.5 AST 26 ALT 16 Alkaline Phosphatase 77 Total Protein 6.8 Albumin 3.9 Urine Color Yellow Urine Appearance Clear Urine pH 5.0 Ur Specific [place] 1.025 Urine Protein Trace Urine Glucose (UA) Negative Urine Ketones Negative Urine Blood Negative Urine Nitrite Negative Ur Leukocyte Esterase Negative Urine RBC 0-2 Urine WBC 6-10 H Ur Squamous Epith Cells 0-2 Urine Bacteria None Seen Hyaline Casts 0-2 Urine Test NEGATIVE Urine Opiates Screen Not Detected Ur Buprenorphine Scrn Not Detected Ur Oxycodone Screen Not Detected Urine Methadone Screen Not Detected Urine Fentanyl Screen Not Detected Ur Barbiturates Screen Not Detected Ur Phencyclidine Scrn Not Detected Ur Amphetamines Screen Not Detected U Benzodiazepines Scrn Not Detected Urine Cocaine Screen Not Detected U Marijuana (THC) Screen Not Detected Ethyl Alcohol < 10 Medications Medications Current Medications Acetaminophen (Acetaminophen 325 Mg Tablet) 650 mg PO Q6H PRN PRN Reason: Headache/Pain Mild Scale (1-3) Al Hydroxide/Mg Hydroxide (Magnesium Hydrox/Alum Hydrox 30 Ml Oral.Susp) 30 ml PO Q6H PRN PRN Reason: Heartburn/Nausea Albuterol Sulfate (Albuterol Sulfate 90 Mcg 8 Gm Inhaler) 2 puff INHALE RQ4H PRN PRN Reason: wheeze Ibuprofen (Ibuprofen 600 Mg Tablet) 600 mg PO Q6H PRN PRN Reason: pain (pain scale 1-10) Last Admin: 12/07/23 10:25 Dose: 600 mg Lamotrigine (Lamotrigine 25 Mg Tablet) 25 mg PO BEDTIME [facility] Last Admin: 12/06/23 20:29 Dose: 25 mg Magnesium Hydroxide (Milk Of Magnesia 30 Ml Oral.Susp) 30 ml PO DAILY PRN PRN Reason: Constipation Nicotine Polacrilex (Nicotine Polacrilex 2 Mg Gum) 4 mg BUCCAL Q2H PRN PRN Reason: Nicotine Cravings Sertraline HCl (Sertraline Hcl 25 Mg Tablet) 25 mg PO DAILY [facility] Last Admin: 12/07/23 09:26 Dose: 25 mg Trazodone HCl (Trazodone Hcl 50 Mg Tablet) 50 mg PO BEDTIME [facility] Last Admin: 12/06/23 20:29 Dose: 50 mg Allergies Allergies Allergy/AdvReac Type Severity Reaction Status Date / Time pineapple Allergy Unknown Verified 12/05/23 23:36 levetiracetam [From [facility]] AdvReac Agitated Verified 12/05/23 23:36 Assessment & Plan Assessment & Plan (1) Depression: Status: Acute Code(s): F32.A - Depression, unspecified (2) History of astrocytoma: Status: Acute Code(s): Z85.841 - Personal history of malignant neoplasm of brain Plan behavior appears to be related to feeling lonely/abandoned and seeking support 12/05: continue lamictal 25 QHS as indication is unknown. it is likely of no use neurologically at that dose, and it is of no use psychiatrically. however, in an abundance of caution, will leave it there pending collateral from outpt prescriber. scripts verified with [employer]. continue zoloft 25 for now for depression/anxiety. start trazodone 50 QHS for insomnia, as c/o insomnia is pt's #1. refer for therapy/meds. 12/06: very sleepy late morning for unknown reasons, pt reports this is not usual for her. reports trazodone last night was helpful and she would like to continue it. do so for now. observe for level of consciousness. case D/W SW. Reason for continued inpatient stay Substantial Risk for: harm to self, inability to function and rapid decompensation Time Spent With Patient Time: Total time managing care of this patient today __25__ minutes.
[2023-12-07 20:00] VITALS: BP 99/60; PULSE 82; RESP 16; TEMP 36.5; O2SAT 100
[2023-12-07] MEDS: traZODone HCL 50 MG TABLET PO (21:12)
[2023-12-07] MEDS: lamoTRIgine 25 MG TABLET PO (21:13)
[2023-12-08 07:40] VITALS: BP 95/51; PULSE 65; RESP 12; TEMP 36.5; O2SAT 94
[2023-12-08] MEDS: Sertraline HCL 25 MG TABLET PO (08:49)
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
== END 2023-12-08 11:19 | disposition home or self-care (01) | DRG 754 ==
LOC: HO.ED 12-06 12:28 → HO.PADLT16 12-06 12:36
PROVIDERS: Emergency Medicine; Admitting Provider Psychiatry & Neurology Psychiatry; Emergency Provider Emergency Medicine; PCP Nurse Practitioner Family; Visit Provider Psychiatry & Neurology Psychiatry
DX: F32.A Depression, unspecified (principal); R45.851 Suicidal ideations; Z87.891 Personal history of nicotine dependence; Z85.841 Personal history of malignant neoplasm of brain; Z79.899 Other long term (current) drug therapy; Z91.52 Personal history of nonsuicidal self-harm
CPT/HCPCS: 36415; 80053; 80307; 81001; 81025; 85025; 87086; 99285; S9485

== ENCOUNTER → 2023-12-06 12:18 | Outpatient (BNV) | payer BC, MEDICARE, SELFPAY | PROVIDERS: Admitting Provider Psychiatry & Neurology Psychiatry; Emergency Provider Emergency Medicine; PCP Nurse Practitioner Family; Visit Provider Psychiatry & Neurology Psychiatry | DX: F32.2 Major depressive disorder, single episode, severe without psychotic features (principal); Z85.841 Personal history of malignant neoplasm of brain | CPT/HCPCS: 90792; 99231; 99239 ==

== ENCOUNTER 2024-01-11 18:26 | Emergency (ER) | payer BC, MEDICARE, SELFPAY ==
--- NOTE | ~2024-01-11 | XR_ITS ---
EXAMINATION: XR CHEST CLINICAL INFORMATION: Pain. COMPARISON: Chest radiograph dated 11/30/2022. TECHNIQUE: 2 views of the chest were obtained. FINDINGS: The lungs are clear. The cardiomediastinal silhouette is normal in size. There is no pleural effusion or pneumothorax. No acute osseous abnormality. XR/XR chest 2V IMPRESSION: No acute cardiopulmonary findings. Electronically signed by: Uday Holder MD 01/11/2024 10:20 PM EDT
[2024-01-11 18:33] VITALS: BP 95/58; PULSE 72; O2SAT 95
--- NOTE | 2024-01-11 18:34 | ECG_ITS ---
Test Reason : CP Blood Pressure : / mmHG Vent. Rate : 065 BPM Atrial Rate : 065 BPM P-R Int : 180 ms QRS Dur : 082 ms QT Int : 460 ms P-R-T Axes : 043 063 097 degrees QTc Int : 478 ms Normal sinus rhythm T wave abnormality, consider anterior ischemia Prolonged QT Abnormal ECG When compared with ECG of 15-AUG-2023 14:28, Nonspecific T wave abnormality no longer evident in Inferior leads T wave inversion less evident in Anterior leads QT has shortened Referred By: Thi Okeefe Electronically Signed By:DEBBI APONTE
--- NOTE | 2024-01-11 18:44 | ED_ITS ---
HPI - Chest Pain General Chief Complaint: Chest Pain Stated Complaint: CHEST PAIN Time Seen by Provider: 01/11/24 18:34 Source: patient Limitations: no limitations History of Present Illness ED Provider: Thi Okeefe PA-C HPI narrative: 38-year-old female with a history of morbid obesity, tobacco abuse, prior astrocytoma, depression presents with chest pain prior to arrival. Patient states she is having anterior chest discomfort, unable to describe the nature of her pain. She states she took tubal aspirin at home, did not receive any additional medication from EMS, she still has a discomfort but it is minimal. Denies shortness of breath, diaphoresis, nausea, vomiting. Denies recent cough cold symptoms or fever. Denies new activity, heavy lifting or trauma to the chest wall the could have precipitated her symptoms. Related Data Previous Rx's ?Medication ?Instructions ?Recorded albuterol sulfate 90 mcg/actuation 2 puff inhalation RQ4H PRN wheeze 08/18/23 aerosol inhaler (Ventolin HFA) #1 inhaler lamotrigine 25 mg tablet 25 mg PO BEDTIME #30 tabs 08/18/23 sertraline 25 mg tablet 25 mg PO DAILY 30 days #30 tabs 12/08/23 trazodone 50 mg tablet 50 mg PO BEDTIME 30 days #30 tabs 12/08/23 Allergies Allergy/AdvReac Type Severity Reaction Status Date / Time cat dander [cats] Allergy Unknown Verified 01/11/24 18:48 dog dander [dogs] Allergy Unknown Verified 01/11/24 18:48 eucalyptus Allergy Unknown Verified 01/11/24 18:48 pineapple Allergy Unknown Verified 12/05/23 23:36 Seasonal Allergies Allergy Unknown Verified 01/11/24 18:48 levetiracetam [From Keppra] AdvReac Agitated Verified 12/05/23 23:36 Review of Systems Review of Systems: Yes all other systems are reviewed and are negative Constitutional: Constitutional: Denies fatigue and Denies fever(s) Cardiovascular: Cardiovascular: Reports chest pain and Denies dyspnea Respiratory: Respiratory: Denies dyspnea Gastrointestinal: Gastrointestinal: Denies abdominal pain and Denies vomiting Endocrine: Endocrine: Denies fatigue PMFSH Past Medical History Attestation statement: The following information was validated with the patient. Medical History Anxiety Syncope Astrocytoma Social History Social History Household Members: Spouse and Children Household Members Other:: Children: boy (7), girl (12), Housing: Apartment Do you presently have visiting nurse or other home services: No Alcohol intake: current Alcohol intake frequency: holidays/special occasions only Patient Tobacco Use Status: Former Tobacco user Tobacco use type: Cigarette Cigarettes Per Day: 1 Years Smoked: 20+ e-Cigarette/Vaping Use: Never Used Second Hand Smoke Exposure: No Substance Use Type: Marijuana Advance Directives: No Advance Directives Information Provided: No service: No Sexual orientation: Straight/Heterosexual Physical Exam Vital Signs: Vital Signs: Last Vital Signs Temp 97.4 F 01/11/24 18:46 Pulse 64 01/11/24 18:46 Resp 18 01/11/24 18:46 BP 92/65 01/11/24 18:46 Pulse Ox 99 01/11/24 18:46 O2 Del Method Room Air 01/11/24 18:46 BMI result Body Mass Index 33.7 Const: Other: Alert, overall well in appearance, but does appear older than stated age Orientation/consciousness: patient oriented x3 Chest: Other: Reproducible chest pain with palpation of left anterolateral chest wall no deformity noted Resp: Effort & Inspection: normal respiratory effort Cardio: Other: Normal peripheral perfusion Skin: Other: Warm dry no rash Neuro: General: patient oriented x3, no focal motor deficits and CN's II-XI intact bilaterally Psych: Other: Calm, has an odd demeanor Course Reevaluation(s) Reevaluation #1: Patient is declining the remainder of her assessment. She is refusing labs including cardiac enzymes. I did obtain an EKG and a chest x-ray. I explained to the patient that there are multiple diagnostics that we obtained to assess for chest pain. I explained that we do not have a complete picture to determine if her pain originates from the heart. I also explained to her that she does have some risk factors for coronary artery disease. She still declines, she wants to go home, she states she is afraid of needles. We will have the patient signed out against medical advice Time: 19:35 Medical Decision Making Medical Decision Making MDM Narrative: 38-year-old female with a history of morbid obesity, tobacco abuse, prior astrocytoma, depression presents with chest pain prior to arrival. Patient states she is having anterior chest discomfort, unable to describe the nature of her pain. She states she took tubal aspirin at home, did not receive any additional medication from EMS, she still has a discomfort but it is minimal. Denies shortness of breath, diaphoresis, nausea, vomiting. Denies recent cough cold symptoms or fever. Denies new activity, heavy lifting or trauma to the chest wall the could have precipitated her symptoms. Problem: Obesity, tobacco abuse History: Per patient I have considered the following differential diagnoses: Chest wall strain, ACS, panic attack, intra-abdominal pathology Plan: We are able to obtain an EKG and chest x-ray. Patient's discomfort is most consistent with chest wall strain, there is an element of reproducible pain with palpation of left anterolateral chest wall. However, she does have some risk factors for coronary artery disease, which I explained to the patient. She declines labs at this time. I explained to her that she does have risk factors for heart disease, and that just the EKG and the chest x-ray alone do not constitute a full assessment to rule out ACS. She still declines. She is alert and oriented, she can make her own decisions, I am not holding the patient. She verbalizes understanding and is willing to sign out against medical advice. To note, her spouse is at bedside. I have independently reviewed the following tests: Chest x-ray: No pleural effusion, no pulmonary edema, no pneumonia EKG: Normal sinus rhythm, rate of 65, T-wave inversions noted anteriorly, were present on prior study, this EKGs actually improved from prior study, QT at 478, this is also improved, it was in the 500s last time Discharge Plan Discharge Clinical Impression: Chest pain Patient Disposition: Left Against Medical Advice Additional Instructions: You chose to leave against medical advice, your assessment is not complete in regard to her chest pain. To note, you can return at any time to complete your assessment for chest pain. Prescriptions: No Action trazodone 50 mg Tablet 50 mg PO BEDTIME 30 Days Qty: 30 0RF sertraline 25 mg Tablet 25 mg PO DAILY 30 Days Qty: 30 0RF lamotrigine 25 mg Tablet 25 mg PO BEDTIME Qty: 30 0RF albuterol sulfate [Ventolin HFA] 90 mcg/actuation Hfa Aerosol Inhaler 2 puff inhalation RQ4H PRN (Reason: wheeze) Qty: 1 0RF Stand Alone Forms: Against Medical Advice Print Language: Indonesian
[2024-01-11 18:46] VITALS: BP 92/65; PULSE 64; RESP 18; TEMP 36.3; O2SAT 99; BMI 33.7
--- NOTE | 2024-01-11 18:59 | MHC.EDTECH ---
pt refusing lab work, also refused iv in ambulance. no labs obtained at this time
--- NOTE | 2024-01-11 19:29 | PC.NURSE ---
pt requesting to leave AMA, pain is now resolved, thinks it was a panic attack. refusing all other assessments by RN and PA at this time
[2024-01-11 19:41] VITALS: BP 102/57; PULSE 67; RESP 20; TEMP 36.4; O2SAT 97
[2024-01-11 19:47] VITALS: BP 102/57; PULSE 67; RESP 20; TEMP 36.4; O2SAT 97
== END 2024-01-11 19:47 | disposition left against medical advice (07) ==
PROVIDERS: Emergency Provider Internal Medicine
DX: R07.89 Other chest pain (principal); Z87.891 Personal history of nicotine dependence
CPT/HCPCS: 71046; 93005; 99283; 99284

== ENCOUNTER 2024-03-20 14:20 | Emergency (ER) | payer BC, MEDICARE, SELFPAY ==
[2024-03-20 14:30] VITALS: BP 102/73; PULSE 85; O2SAT 100
[2024-03-20 14:31] VITALS: BP 101/62; PULSE 85; RESP 20; TEMP 35.9; O2SAT 99; BMI 37.2
--- NOTE | 2024-03-20 18:58 | ED.GENADULT ---
HPI - General Adult General Chief complaint: General Medical Stated complaint: BLE PAIN PER EMS Time Seen by Provider: 03/20/24 18:58 Related Data Previous Rx's ?Medication ?Instructions ?Recorded albuterol sulfate 90 mcg/actuation 2 puff inhalation RQ4H PRN wheeze 08/18/23 aerosol inhaler (Ventolin HFA) #1 inhaler lamotrigine 25 mg tablet 25 mg PO BEDTIME #30 tabs 08/18/23 sertraline 25 mg tablet 25 mg PO DAILY 30 days #30 tabs 12/08/23 trazodone 50 mg tablet 50 mg PO BEDTIME 30 days #30 tabs 12/08/23 Allergies Allergy/AdvReac Type Severity Reaction Status Date / Time cat dander [cats] Allergy Unknown Verified 03/20/24 14:36 dog dander [dogs] Allergy Unknown Verified 03/20/24 14:36 eucalyptus Allergy Unknown Verified 03/20/24 14:36 pineapple Allergy Unknown Verified 03/20/24 14:36 Seasonal Allergies Allergy Unknown Verified 03/20/24 14:36 levetiracetam [From Keppra] AdvReac Agitated Verified 03/20/24 14:36 PMFSH Past Medical History Medical History Anxiety Syncope Astrocytoma Social History Social History Household Members: Spouse and Children Household Members Other:: Children: boy (7), girl (12), Housing: Apartment Do you presently have visiting nurse or other home services: No Alcohol intake: current Alcohol intake frequency: holidays/special occasions only Patient Tobacco Use Status: Former Tobacco user Tobacco use type: Cigarette Cigarettes Per Day: 1 Years Smoked: 20+ e-Cigarette/Vaping Use: Never Used Second Hand Smoke Exposure: No Substance Use Type: Marijuana Do you have a plan to hurt others: No Plan service: No Sexual orientation: Straight/Heterosexual Physical Exam ED Vital Signs: Vital Signs - 24 hr 03/20/24 14:31 Temperature 96.7 F L Pulse Rate 85 Respiratory Rate 20 Blood Pressure 101/62 Pulse Oximetry 99 Oxygen Delivery Method Room Air BMI result Body Mass Index 37.2 Course Course Course Narrative: patient called into triage multiple times no answer. Was not seen by a provider Discharge Plan Discharge Clinical Impression: Eloped from emergency department Patient Disposition: Elopement Prescriptions: No Action trazodone 50 mg Tablet 50 mg PO BEDTIME 30 Days Qty: 30 0RF sertraline 25 mg Tablet 25 mg PO DAILY 30 Days Qty: 30 0RF lamotrigine 25 mg Tablet 25 mg PO BEDTIME Qty: 30 0RF albuterol sulfate [Ventolin HFA] 90 mcg/actuation Hfa Aerosol Inhaler 2 puff inhalation RQ4H PRN (Reason: wheeze) Qty: 1 0RF Print Language: Icelandic
--- NOTE | 2024-03-20 19:11 | MHC.EDTECH ---
This tech called pt to triage area for labs,pt in not answering,provider aware
== END 2024-03-20 21:32 | disposition left against medical advice (07) ==
PROVIDERS: Emergency Provider Emergency Medicine Emergency Medical Services
DX: M79.605 Pain in left leg (principal); M79.604 Pain in right leg
CPT/HCPCS: 99281

== ENCOUNTER 2024-08-30 15:06 | Emergency (ER) | payer BC, MEDICARE, SELFPAY ==
--- NOTE | 2024-08-30 | ECG_ITS ---
Test Reason : chest pain Blood Pressure : */* mmHG Vent. Rate : 85 BPM Atrial Rate : 85 BPM P-R Int : 150 ms QRS Dur : 72 ms QT Int : 378 ms P-R-T Axes : 37 79 94 degrees QTcB Int : 449 ms Normal sinus rhythm Nonspecific T wave abnormality Abnormal ECG When compared with ECG of 11-Jan-2024 18:32, No significant change was found Referred By: Nicolás Gonzalez Electronically Signed By: TYSON HAMEED MD
[2024-08-30 15:10] VITALS: BP 140/100; PULSE 88; O2SAT 100
[2024-08-30 15:16] VITALS: BP 113/65; RESP 18; TEMP 36.7; O2SAT 99; BMI 35.9
--- NOTE | 2024-08-30 15:25 | ED.GENADULT ---
HPI - General Adult General Chief complaint: Dyspnea Stated complaint: Diff breathing per ems Time Seen by Provider: 08/30/24 15:10 Source: patient Mode of arrival: ambulatory Limitations: no limitations History of Present Illness HPI narrative: This is a 38-year-old woman with a past medical history of depression, asthma, history of astrocytoma who presents via EMS for evaluation of dyspnea. She states that about 1 hour ago she was siting in her mother's living room and felt short of breath after checking her pulse ox. She states it was 91-93% on room air. She states feeling like she was having an asthma attack and has had even lower oxygen in the past and get nervous so called 911. She states no recent fevers, chills, cough, congestion or hemoptysis. She states no chest pain, back pain or abdominal pain. She states she hasn't recently used her albuterol inhaler. Related Data Previous Rx's ?Medication ?Instructions ?Recorded albuterol sulfate 90 mcg/actuation 2 puff inhalation RQ4H PRN wheeze 08/18/23 aerosol inhaler (Ventolin HFA) #1 inhaler lamotrigine 25 mg tablet 25 mg PO BEDTIME #30 tabs 08/18/23 sertraline 25 mg tablet 25 mg PO DAILY 30 days #30 tabs 12/08/23 trazodone 50 mg tablet 50 mg PO BEDTIME 30 days #30 tabs 12/08/23 Allergies Allergy/AdvReac Type Severity Reaction Status Date / Time cat dander [cats] Allergy Unknown Verified 08/30/24 15:17 dog dander [dogs] Allergy Unknown Verified 08/30/24 15:17 eucalyptus Allergy Unknown Verified 08/30/24 15:17 pineapple Allergy Unknown Verified 08/30/24 15:17 Seasonal Allergies Allergy Unknown Verified 08/30/24 15:17 levetiracetam [From Keppra] AdvReac Agitated Verified 08/30/24 15:17 [facility] Past Medical History Medical History Anxiety Syncope Astrocytoma Social History Social History Household Members: Spouse and Children Household Members Other:: Children: boy (7), girl (12), Housing: Apartment Do you presently have visiting nurse or other home services: No Alcohol intake: unknown Patient Tobacco Use Status: Former Tobacco user Tobacco use type: Cigarette Cigarettes Per Day: 1 Years Smoked: 20+ Smoked in Last 30 Days: Yes e-Cigarette/Vaping Use: Never Used Second Hand Smoke Exposure: No Substance Use Type: Marijuana Advance Directives: No Advance Directives Information Provided: Yes service: No Sexual orientation: Straight/Heterosexual Physical Exam ED Vital Signs: Vital Signs - 24 hr 08/30/24 15:16 08/30/24 16:09 08/30/24 16:11 Temperature 98.1 F Pulse Rate 100 87 Respiratory Rate 18 16 Blood Pressure 113/65 Pulse Oximetry 99 Oxygen Delivery Method Room Air BMI result Body Mass Index 35.9 Gen: NAD, AOx3 HEENT: NCAT, EOMI, normal conjunctiva CV: RRR Pulm: Few scattered expiratory wheezes, no increased work of breathing GI: Soft, NTND, no rebound, guarding or rigidity Neuro: Grossly non focal Medications Administered Discontinued Medications Generic Name Dose Route Start Last Admin Trade Name Timoteoq PRN Reason Stop Dose Admin Albuterol Sulfate 2.5 mg 08/30/24 15:30 08/30/24 16:09 Albuterol Sulfate (0.083%) 2.5 Mg/3 Ml Vial.Neb INHALE 08/30/24 15:31 2.5 mg ONCE ONE Administration Prednisone 50 mg 08/30/24 15:34 08/30/24 15:48 Prednisone 10 Mg Tablet PO 08/30/24 15:35 50 mg ONCE ONE Administration Medical Decision Making Medical Decision Making MDM Narrative: Differential diagnosis includes, but is not limited to asthma exacerbation, anxiety, viral URI, pneumonia. Given lack of fever, cough, headache, myalgias, sputum production I have lower clinical suspicion for viral URI and pneumonia. Thus, viral panel and chest x-ray is not obtained. Patient is afebrile and hemodynamically stable on room air. Exam is notable for iced albuterol and 50 mg p.o. prednisone. On re-examination, patient is well-appearing and in no acute distress. There is no indication for further emergent evaluation in this otherwise well-appearing patient as above. ?Patient is provided written and verbal instructions, educational materials, recommendations for outpatient follow-up, prescription for prednisone, strict return precautions and teach back is performed. ?Patient states understanding and agreement with plan of care. ?Patient is discharged home in stable and improved condition. Admission/Observation Consideration of admission/observation: Escalation of care including admission/observation considered Independent Interpretation I performed an independent interpretation of an: EKG Interpretation: EKG shows sinus rhythm at 85 beats per minute, WA 150, QRS 72, QTC 449, no STEMI, nonspecific T-wave inversions/flattening in lead V1-V6 (compared to previous EKG January 11, 2024 there are no diagnostic ischemic changes and T-wave inversions/flattening are not new) Discharge Plan Discharge Clinical Impression: Asthma Patient Disposition: Home, Self-Care Instructions: Asthma (ED) Additional Instructions: You were evaluated in the emergency room. Your evaluation was overall reassuring and your oxygen level was 99%. You were given a nebulized albuterol and predisone. A prescription for prednisone has been sent to your pharmacy. Please take as directed. Your next dose should be taken tomorrow. Please use 4 puffs of your albuterol inhaler every 4 hours as needed. Follow up with your primary care doctor in 1 week. Return to the emergency room with any new concerns or symptoms. Prescriptions: No Action trazodone 50 mg Tablet 50 mg PO BEDTIME 30 Days Qty: 30 0RF sertraline 25 mg Tablet 25 mg PO DAILY 30 Days Qty: 30 0RF lamotrigine 25 mg Tablet 25 mg PO BEDTIME Qty: 30 0RF albuterol sulfate [Ventolin HFA] 90 mcg/actuation Hfa Aerosol Inhaler 2 puff inhalation RQ4H PRN (Reason: wheeze) Qty: 1 0RF Print Language: Barbadian
[2024-08-30] MEDS: predniSONE 10 MG TABLET 50 MG PO (15:48)
[2024-08-30 16:09] VITALS: PULSE 100; RESP 16; O2SAT 97
[2024-08-30] MEDS: Albuterol Sulfate (0.083%) 2.5 MG/3 ML VIAL.NEB INHALE (16:09)
[2024-08-30 16:11] VITALS: PULSE 87
--- NOTE | 2024-08-30 16:14 | PC.NURSE ---
Sivakumar vera is coming to pick patient up
[2024-08-30 16:16] VITALS: BP 114/68; PULSE 87; RESP 18; TEMP 36.7; O2SAT 98
== END 2024-08-30 16:33 | disposition home or self-care (01) ==
PROVIDERS: Emergency Provider Emergency Medicine
DX: J45.901 Unspecified asthma with (acute) exacerbation (principal); R07.89 Other chest pain; R06.02 Shortness of breath
CPT/HCPCS: 93005; 94640; 99284; 99285

== ENCOUNTER → 2024-08-30 15:32 | Outpatient (BNV) | payer BC, MEDICARE, SELFPAY | PROVIDERS: Emergency Provider Emergency Medicine; Visit Provider Internal Medicine Cardiovascular Disease | DX: R94.31 Abnormal electrocardiogram [ECG] [EKG] (principal); R07.9 Chest pain, unspecified | CPT/HCPCS: 93010 ==

== ENCOUNTER 2024-11-17 11:44 | Emergency (ER) | payer BC, MEDICARE, SELFPAY ==
--- NOTE | ~2024-11-17 | CT_ITS ---
CLINICAL HISTORY: severe mauro, hx diffuse glioma s p resection CT head without contrast. COMPARISON: CT head dated 08/14/23 at 18:50 EDT FINDINGS: Right frontal temporal craniectomy redemonstrated. Encephalomalacia within the subjacent right middle lobe redemonstrated with ex vacuo dilatation of the temporal horn of the right lateral ventricle, unchanged. Unchanged mild encephalomalacia/gliosis along the anterior inferior right frontal lobe suggestive of trauma or ischemia. No intracranial hemorrhage. No mass effect. No hydrocephalus. Basilar cisterns are patent. Posterior fossa is unremarkable. Visualized paranasal sinuses and mastoid air cells are clear. Cerumen present within the external auditory canals bilaterally. No acute fracture. IMPRESSION: 1. No acute intracranial findings. 2. Stable postsurgical changes of right frontal temporal craniectomy with partial right temporal lobectomy. This document has been electronically signed by: Alverto Quinn MD on 11/17/2024 14:52:09
[2024-11-17 11:50] VITALS: BP 118/82; BP 97/64; PULSE 61; PULSE 65; RESP 17; TEMP 36.8; O2SAT 98; BMI 33.1
--- NOTE | 2024-11-17 12:36 | ED.HA ---
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 Associated photophobia nausea, denies vomiting. Patient states that her occipital area feels ?squishy, and is tender to palpation. Also complains of a frontal headache. Repeatedly requesting imaging stating ?I am afraid my tumor is back. ? Upon review of electronic medical records from [facility], patient recently had MRI brain on 10/19/2024 and saw her oncologist on 10/21/24 and was advised that no recurrence of her glioma was noted on the MRI. MD elicited complaint: headache Related Data Previous Rx's ?Medication ?Instructions ?Recorded albuterol sulfate 90 mcg/actuation 2 puff inhalation RQ4H PRN wheeze 08/18/23 aerosol inhaler (Ventolin HFA) #1 inhaler lamotrigine 25 mg tablet 25 mg PO BEDTIME #30 tabs 08/18/23 sertraline 25 mg tablet 25 mg PO DAILY 30 days #30 tabs 12/08/23 trazodone 50 mg tablet 50 mg PO BEDTIME 30 days #30 tabs 12/08/23 Allergies Allergy/AdvReac Type Severity Reaction Status Date / Time cat dander (cats) Allergy Unknown Verified 11/17/24 11:56 dog dander (dogs) Allergy Unknown Verified 11/17/24 11:56 eucalyptus Allergy Unknown Verified 11/17/24 11:56 pineapple Allergy Unknown Verified 11/17/24 11:56 Seasonal Allergies Allergy Unknown Verified 11/17/24 11:56 levetiracetam (From Keppra) AdvReac Agitated Verified 11/17/24 11:56 Review of Systems Review of Systems: As per HPI Yes all other systems are reviewed and are negative Constitutional: Constitutional: Reports as per HPI Neurologic: Reports Abnormal speech present PMFSH Past Medical History Medical History Anxiety Syncope Astrocytoma Social History Social History Household Members: Spouse and Children Household Members Other:: Children: boy (7), girl (12), Housing: Apartment Do you presently have visiting nurse or other home services: No Alcohol intake: unknown Patient Tobacco Use Status: Former Tobacco user Tobacco use type: Cigarette Cigarettes Per Day: 1 Years Smoked: 20+ e-Cigarette/Vaping Use: Never Used Second Hand Smoke Exposure: No Substance Use Type: Marijuana Advance Directives: No Advance Directives Information Provided: No Do you have a plan to hurt others: No Plan service: No Sexual orientation: Straight/Heterosexual Physical Exam Vital Signs: Vital Signs: Last Vital Signs Temp 98.1 F 11/17/24 16:00 Pulse 60 11/17/24 16:00 Resp 16 11/17/24 16:00 BP 103/64 11/17/24 16:00 Pulse Ox 99 11/17/24 16:00 O2 Del Method Room Air 11/17/24 16:00 BMI result Body Mass Index 33.1 Vital signs have been reviewed and appear to be correct. Blood pressure normal. Heart rate normal. Respiratory rate normal. Temperature normal. Oxygen saturation normal. Const: General: cooperative and no acute distress Nutritional Appearance: average body habitus Orientation/consciousness: oriented to person, oriented to place, oriented to time and patient oriented x3 HEENT: Head: Yes normocephalic, Yes atraumatic and Yes other (no fluctuance noted upon palpation of occipital area) Ears: external ears normal General nose exam: Normal external nose present Face and sinus: Yes face symmetric Mouth: oropharynx normal and moist mucous membranes Throat: Yes uvula midline Eyes: Pupils: Equal, round and reactive pupils present Neck: Neck: Yes normal visual inspection and Yes supple Resp: Effort & Inspection: normal respiratory effort and able to speak in complete sentences Auscultation: clear to auscultation bilaterally Cardio: Rate: regular rate Rhythm: regular rhythm Heart sounds: S1 normal heart sound present and S2 normal heart sound present GI: Palpation (GI): Soft to palpation and nontender Auscultation: normoactive bowel sounds : General: Yes no CVA tenderness Back/Spine/Pelvis: Back: no CVA tenderness Skin: General skin exam: elasticity normal and turgor normal Neuro: General: oriented to person, oriented to place, oriented to time, patient oriented x3, gait normal, tone normal, moves all extremities, Normal light touch and pain sensation, no focal motor deficits, CN's II-XI intact bilaterally and deep tendon reflexes 2+ bilaterally Cranial nerves: Yes Equal, round and reactive pupils present Cognition (Neuro): normal cognition Speech: Abnormal speech present slurred (slight, baseline per pt) Extrem: General: Yes full ROM, Yes no pedal edema and Yes no calf tenderness Psych: Mental Status: mental status grossly normal Affect: normal affect Thought process: Normal thought process present Medications Administered Discontinued Medications Generic Name Dose Route Start Last Admin Trade Name Freq PRN Reason Stop Dose Admin Diphenhydramine HCl 25 mg 11/17/24 12:48 11/17/24 13:49 Diphenhydramine Hcl 50 Mg/Ml Vial IVPUSH 11/17/24 12:49 25 mg ONCE ONE Administration Sodium Chloride 1,000 mls @ 999 mls/hr 11/17/24 13:00 11/17/24 15:33 Ns IV 11/17/24 14:00 Infused .Q1H1M [facility] Infusion Ketorolac Tromethamine 15 mg 11/17/24 12:48 11/17/24 13:48 Ketorolac Tromethamine 15 Mg/Ml Vial IVPUSH 11/17/24 12:49 15 mg ONCE ONE Administration Metoclopramide HCl 10 mg 11/17/24 12:48 11/17/24 13:49 Metoclopramide Hcl 10 Mg/2 Ml Vial IVPUSH 11/17/24 12:49 10 mg ONCE ONE Administration Medical Decision Making Medical Decision Making MDM Narrative: Patient is a 39-year-old female with 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 On exam patient is awake, A+Ox3, VS WNL, afebrile, normal neurological exam without focal deficits, physical exam findings as above. Given reported symptoms and physical exam findings, initial differential includes but is not limited to migraine, malignancy/mass, ICH, tension headache. Labs unremarkable. CT notable for no acute abnormalities, redemonstration of prior resection. My interpretation is in agreement with the radiologist's interpretation. Patient reports complete resolution of headache after medications given in the ED. 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 Return precautions discussed. Patient verbalized understanding of and agreement with plan. Differential Diagnosis Differential Diagnoses: The differential diagnosis associated with the presentation includes as per [facility] Admission/Observation Consideration of admission/observation: Escalation of care including admission/observation considered Patient would have been admitted to the hospital had their clinical presentation warranted hospital admission. Lab Data [facility] Lab Attestation statement: I reviewed the patient's lab results. as per [facility] 11/17/24 13:47 11/17/24 13:47 Labs: Lab Results 11/17/24 Range/Units 13:47 WBC 4.1 L (4.8-10.8) X10*3/uL RBC 4.66 (4.20-5.50) X10*6/uL Hgb 12.9 (12.0-16.0) g/dl Hct 35.8 L (37.0-47.0) % MCV 76.8 L (80.0-98.0) fL MCH 27.7 (27.0-33.0) pg MCHC 36.0 H (31.0-35.0) g/dl RDW 13.5 (11.0-16.0) % Plt Count 182 (160-400) X10*3/uL MPV 10.2 (9.4-12.3) fL Immature Gran % (Auto) 0.2 (0.0-0.4) % Neut % (Auto) 33.7 L (45-73) % Lymph % (Auto) 48.3 H (20-40) % [place] % (Auto) 7.8 (2-11) % Eos % (Auto) 8.5 H (0-4) % Baso % (Auto) 1.5 (0-2) % Lymph # (Auto) 2.0 (1.2-4.9) X10*3/uL [place] # (Auto) 0.3 (0.1-1.2) X10*3/uL Eos # (Auto) 0.4 (0.0-0.4) X10*3/uL Baso # (Auto) 0.1 (0.0-0.2) X10*3/uL Abs Immat Gran (auto) 0.01 (0.00-0.03) X10*3/uL Absolute Neuts (auto) 1.4 L (2.0-8.3) x10*3/uL Absolute Nucleated RBC 0.000 (0.0-0.012) X10*3/uL Nucleated RBC % (auto) 0.0 (0.0-0.2) /100WBC Sodium 141 (135-145) mmol/L Potassium 4.2 (3.3-5.1) mmol/L Chloride 106 (96-108) mmol/L Carbon Dioxide 27 (22-29) mmol/L Anion Gap 12 (12-20) BUN 11 (9-16) mg/dL Creatinine 0.66 (0.5-1.4) mg/dL Estim Creat Clear Calc 115.7 Estimated GFR > 60 Random Glucose 91 (60-115) mg/dL Calcium 9.6 (8.4-10.2) mg/dL Magnesium 2.0 (1.6-2.6) mg/dL Total Bilirubin 0.8 (0.0-1.0) mg/dL AST 31 (5-31) U/L ALT 20 (0-31) U/L Alkaline Phosphatase 82 (39-117) U/L Total Protein 7.0 (6.5-8.0) g/dL Albumin 4.2 (3.5-5.0) g/dL Influenza Type A (PCR) NEGATIVE (Negative) Influenza Type B (PCR) NEGATIVE (Negative) RSV RNA Qual (PCR) NEGATIVE (Negative) SARS-CoV-2 RNA (RT-PCR) NEGATIVE (Negative) Independent Interpretation I performed an independent interpretation of an: CT Scan Interpretation: CT notable for no acute abnormalities, redemonstration of prior resection. Radiology Impression Discussion of test interpretation with radiology: I have reviewed the radiologist's reading. Radiologist Impression: COMPARISON: CT head dated 08/14/23 at 18:50 EDT FINDINGS: Right frontal temporal craniectomy redemonstrated. Encephalomalacia within the subjacent right middle lobe redemonstrated with ex vacuo dilatation of the temporal horn of the right lateral ventricle, unchanged. Unchanged mild encephalomalacia/gliosis along the anterior inferior right frontal lobe suggestive of trauma or ischemia. No intracranial hemorrhage. No mass effect. No hydrocephalus. Basilar cisterns are patent. Posterior fossa is unremarkable. Visualized paranasal sinuses and mastoid air cells are clear. Cerumen present within the external auditory canals bilaterally. No acute fracture. IMPRESSION: 1. No acute intracranial findings. 2. Stable postsurgical changes of right frontal temporal craniectomy with partial right temporal lobectomy. External Record Review External record reviewed: Inpatient record, Office record and Outpatient record Critical Care Time Critical Care Time Critical Care Time: Yes Total Critical Care Time: 34 Attestation: I have personally provided critical care time exclusive of time spent on separately billable procedures. Time includes review of lab data, radiology results, discussion with consultants, and monitoring for potential decompensation. Intervention performed as documented. Discharge Plan Discharge Clinical Impression: Migraine Patient Disposition: Home, Self-Care Instructions: Migraine Headache (ED) Additional Instructions: You have been evaluated in the emergency department today for headache. Your evaluation did not show evidence of medical conditions requiring emergent intervention at this time, and your pain resolved with medication in the ED. We recommend you take 600 mg ibuprofen every 6 hours or Tylenol 650 mg every 6 hours as needed for pain. If needed, you can alternate these medications so that you take 1 medication every 3 hours. For instance, at noon take ibuprofen, then at 3:00 p.m. take Tylenol, then at 6:00 p.m. take ibuprofen. Please follow-up with your primary care provider within 2 days. Return to the emergency department if you experience worsening or uncontrolled pain, vision changes, recurrent vomiting, difficulty with normal activities, abnormal behavior, difficulty walking, numbness, weakness, or any other concerning symptoms. Prescriptions: No Action trazodone 50 mg Tablet 50 mg PO BEDTIME 30 Days Qty: 30 0RF sertraline 25 mg Tablet 25 mg PO DAILY 30 Days Qty: 30 0RF lamotrigine 25 mg Tablet 25 mg PO BEDTIME Qty: 30 0RF albuterol sulfate [Ventolin HFA] 90 mcg/actuation Hfa Aerosol Inhaler 2 puff inhalation RQ4H PRN (Reason: wheeze) Qty: 1 0RF Print Language: Indian
[2024-11-17 13:52] LABS: MANUAL DIFF FLAG NO
[2024-11-17 13:53] LABS: Hematocrit 35.8 % (37.0-47.0); Hemoglobin 12.9 g/dl (12.0-16.0); Imm Gran Abs Auto 0.01 X10*3/uL (0.00-0.03); Imm Gran Pct Auto 0.2 % (0.0-0.4); Lymphocytes Absolute Auto 2.0 X10*3/uL (1.2-4.9); Mean Corpuscular HGB Conc 36.0 g/dl (31.0-35.0); Mean Corpuscular Hemoglobin 27.7 pg (27.0-33.0); Mean Corpuscular Volume 76.8 fL (80.0-98.0); NRBC Abs Auto 0.000 X10*3/uL (0.0-0.012); NRBC Pct Auto 0.0 /100WBC (0.0-0.2); Platelet Count 182 X10*3/uL (160-400); Red Blood Count 4.66 X10*6/uL (4.20-5.50); White Blood Count 4.1 X10*3/uL (4.8-10.8)
[2024-11-17 14:11] LABS: Alanine Aminotransferase 20 U/L (0-31); Albumin Level 4.2 g/dL (3.5-5.0); Alkaline Phosphatase 82 U/L (39-117); Anion Gap 12 (12-20); Aspartate Amino Transferase 31 U/L (5-31); Blood Urea Nitrogen 11 mg/dL (9-16); Calcium 9.6 mg/dL (8.4-10.2); Carbon Dioxide 27 mmol/L (22-29); Chloride 106 mmol/L (96-108); Creatinine Clr Calc Pharmacy 115.7; Estimated Glomerular Filt Rate > 60; Magnesium 2.0 mg/dL (1.6-2.6); Potassium 4.2 mmol/L (3.3-5.1); Sodium 141 mmol/L (135-145); Total Protein 7.0 g/dL (6.5-8.0)
[2024-11-17 14:29] LABS: Resp Syncy Virus RNA Qual PCR NEGATIVE (Negative); SARS COV2 PCR INHOUSE NEGATIVE (Negative)
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
--- NOTE | 2024-11-17 15:36 | PC.NURSE ---
Back documentation This Nurse, Dara RN, and Tong product development technician were with this PT while Dara RN placed IV, PT held this nurse Hand and Tong application support lead help hold pt's arm in place for IV. PT Yelling at staff during the procedure. After procedure was done PT calmed down.
--- NOTE | 2024-11-17 15:38 | PC.NURSE ---
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
--- NOTE | 2024-11-17 15:39 | PC.NURSE ---
Back documentation PT to CT scan IVF fluids paused.
--- NOTE | 2024-11-17 15:39 | PC.NURSE ---
Back documentation Pt back from CT scan IVF fluids connected and running.
--- NOTE | 2024-11-17 15:39 | PC.NURSE ---
Back documentation PT arrived to ER room. PT [id number]. PT screaming I'm in pain I need something now I don't want anything IV i want PO you guys are not putting an IV in me! This Nurse told pt she would speak to provider about getting pain meds.
[2024-11-17 16:00] VITALS: BP 103/64; PULSE 60; RESP 16; TEMP 36.7; O2SAT 99
--- NOTE | 2024-11-17 17:39 | PC.NURSE ---
PT woke up from nap, pt said The med you guys gave me were wonderful! It worked great! Provider notified.
[2024-11-17 17:45] VITALS: BP 103/64; PULSE 60; RESP 16; TEMP 36.7; O2SAT 99
== END 2024-11-17 17:49 | disposition home or self-care (01) ==
PROVIDERS: Emergency Provider Emergency Medicine Emergency Medical Services
DX: G43.909 Migraine, unspecified, not intractable, without status migrainosus (principal); J45.909 Unspecified asthma, uncomplicated; Z85.841 Personal history of malignant neoplasm of brain; Z91.51 Personal history of suicidal behavior; Z92.21 Personal history of antineoplastic chemotherapy; Z03.818 Encounter for observation for suspected exposure to other biological agents ruled out
CPT/HCPCS: 70450; 80053; 83735; 85025; 87637; 96361; 96374; 96375; 99284; 99291; J1200; J1885; J2765

== ENCOUNTER → 2024-11-17 12:48 | Outpatient (BNV) | payer BC, MEDICARE, SELFPAY | PROVIDERS: Emergency Provider Emergency Medicine Emergency Medical Services; Visit Provider Radiology Diagnostic Radiology | DX: R51.9 Headache, unspecified (principal) | CPT/HCPCS: 70450 ==